=== PATIENT | female | born 1935 | race Caucasian/White ===

== ENCOUNTER → 2017-08-28 | Outpatient (CLI) | payer MEDICARE ==
[~2017-08-28] MED LIST: METO1TAB32 PO; PROL60SO
--- NOTE | 2017-08-28 14:22 | REP ---
Chest x-ray: Two views. History: Shortness of breath. Comparison chest x-ray July 31, 2017. Findings: Today's view is exposed at a lesser level of inspiration than the prior study. The lungs are symmetrically aerated. Pleural angles are sharp. There is some linear fibrotic markings in the left base which are felt to be unchanged. No new infiltrate is seen. The heart is not felt to be enlarged. Aorta is tortuous as before. There are degenerative changes in the thoracic spine. Impression: Lesser level of inspiration. Otherwise no acute disease. Signed by Romero Bishop MD 08/28/2017 03:33 P
== END ==
LOC: M RAD 13:14
PROVIDERS: ATTEND Internal Medicine Cardiovascular Disease
DX: R06.02 Shortness of breath (principal)

== ENCOUNTER 2017-08-29 18:33 | Emergency (ER) | payer OTHER, MEDICARE ==
[~2017-08-29] VITALS: Ht 157.5 cm; Wt 70.5 kg
[2017-08-29] MEDS ORDERED: PROL60SO (18:51)
[2017-08-29] MEDS ORDERED: METO1TAB32 PO (18:51)
[2017-08-29] MEDS ORDERED: ADACEL/BOOSTRIX VACCINE (DIPHTH/PERTUSS/ACELL/TETANUS)0.5ML SYR (90715) IM ONE (22:30)
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
[2017-08-29 23:13] VITALS: BP 146/72
== END 2017-08-29 23:14 | disposition home or self-care (01) ==
LOC: M ED 18:33
DX: Z04.1 Encounter for examination and observation following transport accident (principal); S01.01XA Laceration without foreign body of scalp, initial encounter; V49.50XA Passenger injured in collision with unspecified motor vehicles in traffic accident, initial encounter; Y92.89 Other specified places as the place of occurrence of the external cause; Y93.89 Activity, other specified; Y99.8 Other external cause status; K80.70 Calculus of gallbladder and bile duct without cholecystitis without obstruction; D35.00 Benign neoplasm of unspecified adrenal gland; M47.812 Spondylosis without myelopathy or radiculopathy, cervical region; M50.90 Cervical disc disorder, unspecified, unspecified cervical region; I10 Essential (primary) hypertension

== ENCOUNTER → 2017-09-19 | Outpatient (REF) | payer MEDICARE | LOC: M LAB REF 16:58 | PROVIDERS: ATTEND Nurse Practitioner Adult Health | DX: R53.83 Other fatigue (principal); R53.1 Weakness ==

== ENCOUNTER 2019-02-11 09:30 | Emergency (ER) | payer MEDICARE ==
[~2019-02-11] VITALS: Ht 160 cm; Wt 68.6 kg
[2019-02-11] MEDS ORDERED: SERT-155 (09:40)
[2019-02-11] MEDS ORDERED: ACETAMINOPHEN TAB 650MG DOSE (2X325MG) PO ONE (10:30)
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
[2019-02-11 11:05] VITALS: BP 110/69
== END 2019-02-11 11:09 | disposition home or self-care (01) ==
LOC: M ED 09:30
DX: S20.211A Contusion of right front wall of thorax, initial encounter (principal); W00.0XXA Fall on same level due to ice and snow, initial encounter

== ENCOUNTER → 2019-10-29 | Outpatient (REF) | payer MEDICARE ==
[~2019-10-29] MED LIST changes: +SERT50TA29
[2019-10-29 16:03] LABS: TOTAL PROTEIN 7.7 GM/DL (6.4-8.2)
[2019-10-29 16:11] LABS: FOLATE > 24.0 NG/ML; VITAMIN B12 LEVEL 484 PG/ML
[2019-10-30 12:21] LABS: ALBUMIN 4.69 GM/DL (3.29-5.55); ALBUMIN % 60.9 % (55.8-66.1); ALPHA-1-GLOBULIN % 4.4 % (2.9-4.9); ALPHA-1-GLOBULINS 0.34 GM/DL (0.17-0.41); ALPHA-2-GLOBULINS 0.75 GM/DL (0.42-0.99); ALPHA-2-GLOBULINS % 9.8 % (7.1-11.8); BETA-1-GLOBULINS 0.41 GM/DL (0.28-0.60); BETA-1-GLOBULINS % 5.3 % (4.7-7.2); BETA-2-GLOBULINS 0.38 GM/DL (0.19-0.55); BETA-2-GLOBULINS % 4.9 % (3.2-6.5); GAMMA GLOBULIN % 14.7 % (11.1-18.8); GAMMA GLOBULINS 1.13 GM/DL (0.65-1.58)
== END ==
LOC: M LABNEURO 13:15
PROVIDERS: ATTEND Psychiatry & Neurology Neurology
DX: R26.89 Other abnormalities of gait and mobility (principal); E51.9 Thiamine deficiency, unspecified; E83.01 Wilson's disease

== ENCOUNTER 2019-12-18 09:24 | Day surgery (SDC) | payer MEDICARE ==
[~2019-12-18] VITALS: Ht 160 cm; Wt 67.6 kg
[~2019-12-18 09:24] MED LIST changes: +CALC600T60 PO; +CARB25TA PO; +CEFUROXIME 1MG/0.1ML INTRACAMERAL INJ As Ordered ONE; +DUOVISC (0.50ML VISCOAT/0.55ML PROVISC) OPHTH KIT As Ordered ONE; +FLAX1CAP5 PO; +LIDOCAINE 1% SDV 5 ML VIAL As Ordered ONE; +LR 1,000 ML IV ONE; +MULTCAP PO; +OFLOXACIN 0.3 % (OCUFLOX) OPTH SOL 5ML OS ONE; +POVIDONE-IODINE 5% OPHTH PREP SOL 30ML As Ordered ONE; +PROPARACAINE 0.5% OPHTH SOL 15ML OS ONE
[2019-12-18] MEDS ORDERED: BALANCED SALT IRRIGATION SOLUTION 500ML BAG (FOR OR EYE MACHINE) As Ordered ONE (10:36)
[2019-12-18] MEDS ORDERED: MIDAZOLAM INJ 2 MG/2 ML VIAL (J2250) As Ordered ONE (11:46)
[2019-12-18] MEDS ORDERED: fentaNYL 100 MCG/2 ML INJECTION (J3010) As Ordered ONE (11:46)
[2019-12-18 13:25] VITALS: BP 133/83
--- NOTE | 2019-12-19 16:51 | RO ---
DATE OF PROCEDURE: 12/18/2019 PREPROCEDURE DIAGNOSIS: Primary open-angle glaucoma, moderate stage of the left eye. POSTPROCEDURE DIAGNOSIS: Primary open-angle glaucoma, moderate stage of the left eye. PROCEDURE: Transluminal canal dilation with ab-interno trabeculotomy of the left eye with the use of OMNI device (180 degrees viscodilation on goniotomy counterclockwise). SURGEON: Dr. Harsh Johnson PATIENT SERVICE REP: ANESTHESIA: Local with monitored anesthesia care (MAC). DESCRIPTION OF PROCEDURE: The patient was seen in the preoperative area, the consent was reviewed, and the surgical eye was marked. The patient was then transferred to the operating room. The eye was then prepped and draped in a sterile fashion. Tegaderm was used to isolate the upper and lower eyelids and a wire lid speculum was placed. The patient's head was rotated 45 degrees away, microscope was rotated to approximately 45 degrees. A 2.4 mm temporal clear corneal incision was made. Intraocular preservative-free 1% lidocaine was injected and then cohesive viscoelastic was placed. Using a gonio prism, the trabecular meshwork was visualized, The OMNI device was placed within the anterior chamber. The OMNI device catheter was fed into the canal counterclockwise for 180 degrees. There was mild bleeding at the insertion site. The catheter was then removed. The catheter was then reinserted and then a gentle goniotomy was performed for approximately 180 degrees. Catheter was then withdrawn. The patient's head was rotated, the catheter was withdrawn, as well as the OMNI device. The patient's head was rotated back to 45 degrees, as well as the microscope to 0 degrees. Irrigation/aspiration was used to remove all viscoelastic and blood from the anterior chamber. BSS was used to hydrate the temporal clear corneal incision. The intraocular pressure was titrated using BSS. Weck oivedo were used to check the incision for any leaks, none were found. There was no hyphema at the end of the procedure. The patient tolerated the procedure well. The speculum and drapes were removed, and the patient was discharged to the post-anesthesia care unit (PACU) in a stable condition.
== END 2019-12-18 13:30 | disposition home or self-care (01) ==
LOC: M SDC 09:24
PROVIDERS: ATTEND Ophthalmology
DX: H40.1122 Primary open-angle glaucoma, left eye, moderate stage (principal); I10 Essential (primary) hypertension; D64.9 Anemia, unspecified; K59.00 Constipation, unspecified; M19.90 Unspecified osteoarthritis, unspecified site; M81.0 Age-related osteoporosis without current pathological fracture; F03.90 Unspecified dementia, unspecified severity, without behavioral disturbance, psychotic disturbance, mood disturbance, and anxiety; G20 Parkinson's disease; F32.9 Major depressive disorder, single episode, unspecified; R32 Unspecified urinary incontinence; Z96.1 Presence of intraocular lens; Z88.5 Allergy status to narcotic agent; Z79.899 Other long term (current) drug therapy
CPT/HCPCS: 65820; 66174; J2250; J3010

== ENCOUNTER 2020-01-09 12:26 | Inpatient (IN) | payer MEDICARE ==
[~2020-01-09] VITALS: Ht 160 cm; Wt 64.0 kg
[~2020-01-09 12:26] MED LIST changes: -CEFUROXIME 1MG/0.1ML INTRACAMERAL INJ As Ordered ONE; -DUOVISC (0.50ML VISCOAT/0.55ML PROVISC) OPHTH KIT As Ordered ONE; -LIDOCAINE 1% SDV 5 ML VIAL As Ordered ONE; -LR 1,000 ML IV ONE; -OFLOXACIN 0.3 % (OCUFLOX) OPTH SOL 5ML OS ONE; -POVIDONE-IODINE 5% OPHTH PREP SOL 30ML As Ordered ONE; -PROPARACAINE 0.5% OPHTH SOL 15ML OS ONE; -SERT50TA29; +SERT50TA29 PO
[2020-01-09] MEDS ORDERED: POTA20TA6 PO (12:46)
[2020-01-09] MEDS ORDERED: FUROSEMIDE 40 MG/4 ML VIAL (J1940) IV ONE (13:15)
--- NOTE | 2020-01-09 13:23 | REP ---
Portable chest x-ray: Single view. History: Dyspnea and cough. Comparison study: February 11, 2019. Also reviewed is a chest x-ray from August 28, 2017. Findings: There is left base linear fibrosis unchanged. No infiltrate is seen. Pleural angles are sharp. Cardiomegaly is observed unchanged. The thoracic aorta somewhat tortuous. Impression: Linear fibrosis left base. Mild cardiomegaly. Otherwise no acute disease. Electronically Signed by Romero Bishop MD 01/09/2020 01:15 P
[2020-01-09] MEDS ORDERED: IPRATROPIUM 0.5MG/ALBUTEROL 2.5MG INH SOL UD 3ML (DUONEB)(J7620) NEB ONE (13:30)
[2020-01-09 13:37] LABS: BASO % 0.1 % (0.0-1.0); EOS % 0.1 % (0.0-3.0); HEMATOCRIT 23.9 % (36.0-47.0); HEMOGLOBIN 7.4 g/dl (12.0-15.5); LYMPH # 1.2 10^3/uL (1.5-5.0); LYMPH % 11.3 % (24.0-44.0); MEAN CORPUSCULAR HEMOGLOBIN 20.1 pg (27.0-33.0); MEAN CORPUSCULAR VOLUME 64.8 fl (80.0-96.0); MONO # 0.8 10^3/uL (0.0-0.8); MONO % 7.5 % (0.0-5.0); NEUTROPHILS # 8.1 10^3/uL (1.5-8.5); NEUTROPHILS % 79.2 % (36.0-66.0); PLATELET COUNT, AUTOMATED 369 10^3/uL (150-450); RED BLOOD COUNT 3.69 10^6/uL (4.00-5.40); WHITE BLOOD COUNT 10.2 10^3/uL (4.0-10.0)
[2020-01-09 13:43] LABS: BLOOD UREA NITROGEN 25 MG/DL (7-18); CALCIUM LEVEL 8.3 MG/DL (8.8-10.2); CARBON DIOXIDE LEVEL 26 MEQ/L (21-32); CHLORIDE LEVEL 101 MEQ/L (98-107); CK-MB VALUE MASS 1.3 NG/ML (<3.6); CPK CREATINE PHOSPHOKINASE 63 U/L (26-192); CREATININE FOR GFR 0.67 MG/DL (0.55-1.30); GLOMERULAR FILTRATION RATE > 60.0 (>32); GLUCOSE, FASTING 126 MG/DL (70-100); MAGNESIUM LEVEL 2.1 MG/DL (1.8-2.4); MB/CK RELATIVE INDEX 2.06 (< OR =4); NT-PRO BNP 964 PG/ML (<450); POTASSIUM SERUM 4.7 MEQ/L (3.5-5.1); SODIUM LEVEL 134 MEQ/L (136-145); TROPONIN I 0.02 NG/ML (< 0.10)
[2020-01-09 14:00] LABS: ABG BASE EXCESS 0.5 (-2.0-2.0); ABG O2 SATURATION 97.3 % (95.0-99.0); ABG PARTIAL PRESSURE CO2 33.7 mmHg (35.0-45.0); ABG PARTIAL PRESSURE O2 105.7 mmHg (75.0-100.0); ABG TOTAL CO2 25.1 MEQ/L (23.0-31.0); ABG pH (ARTERIAL) 7.471 UNITS (7.350-7.450)
[2020-01-09] MEDS ORDERED: PANTOPRAZOLE 40MG INJ (PROTONIX) (C9113) IV ONE (14:30)
[2020-01-09] MEDS ORDERED: CARB25TA9 PO (14:34)
[2020-01-09] MEDS ORDERED: PROL60SO SC (14:34)
[2020-01-09] MEDS ORDERED: XALA0.007 OU (14:34)
[2020-01-09 16:05] LABS: FERRITIN 350 NG/ML (8-252); IRON (FE) 32 UG/DL (50-170); PERCENT SATURATION 20.9 % (13.2-45.0); TOTAL IRON BINDING CAPACITY 153 UG/DL (250-450)
[2020-01-09 16:12] LABS: VITAMIN B12 LEVEL 983 PG/ML (247-911)
[2020-01-09 16:13] LABS: FOLATE > 24.0 NG/ML (>5.4)
--- NOTE | 2020-01-09 17:10 | HPEPDOC ---
General Date of Admission Jan 09, 2020 at 15:33 Date of Service: Jan 09, 2020 Chief Complaint The patient is a 84-year-old female admitted with a reason for visit of Symptomatic Anemia. History of Present Illness CHIEF COMPLAINT: Shortness of Breath HISTORY OF PRESENT ILLNESS: This is a 84 year old female who presented to the ED for shortness of breath, dizziness and loose dark stools for the past 3 days. The shortness of breath has been present on and off for longer, patient was unable to give a time frame. She does endorses it worsens when she lies flat or climbs the stairs, she is able to ambulate around her house without shortness of breath. She also states her legs have felt heavy and weak for a few months. Denied headaches, chest pain, pain with taking a deep breath, nausea, vomiting and blood in her stools. Her last blood work was one month ago and her Hemoglobin was 9.6, Hemocrit was 28.5 and MCV was 61.2. In the ER, the patient had conversational dyspnea but denied any abdominal pain. Her initial blood work shows a Hemoglobin of 7.4, Hemocrit of 23.9 and MCV was 64.8 and a positive hemocult. Patient showed signs of fluid overload. She will be admitted to the PCU for symptomatic anemia, receive 2 units of blood with anemia work up and consult with general surgery for a potential scope to look for a GI bleed. PAST MEDICAL HISTORY: 1. Chronic Anemia 2. Hypertension 3. Dementia 4. Depression HOME MEDICATIONS: Please see below. ALLERGIES: Please see below PAST SURGICAL HISTORY: 1. Bilateral Cataracts 2. Tubal Ligation SOCIAL HISTORY: Lives alone in an apartment, Tobacco use: None. ETOH: None, Illicit drug use: None, CODE STATUS: Full Code. FAMILY HISTORY: Reviewed and noncontributory. REVIEW OF SYSTEMS: Constitutional: Denies: Chills, Fever Eyes: Denies: Vision Changes ENT: Denies: Head Aches Pulmonary: Reports: Dyspnea Cardiovascular: Denies: Palpitations, Chest pain Gastrointestinal: Denies: Nausea, Vomiting Genitourinary: Denies: Dysuria Musculoskeletal: Denies: Arm Pain, Leg Pain Neurological: Reports: Weakness in LE bilaterally Denies: numbness, tingling Psych: Reports: Mood Normal PHYSICAL EXAMINATION: VITAL SIGNS: Please See Below GENERAL: Pleasant 84 year old female with bilateral hearing aids who is still hard of hearing, sitting up in bed awake alert oriented with conversational d yspnea and only speaking in short sentences. HEENT: Atraumatic, normocephalic, moist mucous membrane, mild elevated JVD CARDIOVASCULAR: Normal S1 S2 regular rate and rhythm with no murmurs, gallops or rubs. RESPIRATORY: Clear to auscultation bilaterally except for mild bilateral bibasilar crackles with mild accessory muscle use. ABDOMINAL: Bowel sounds present in all 4 quadrants, abdomen soft and nontender. EXTREMITIES: 2+ pitting edema in lower extremities bilaterally NEUROLOGICAL: AOx3, no gross focal deficits; Muscle strength 5/5 bilaterally in upper and lower extremities, sensation intact bilaterally in upper and lower extremities PSYCHOLOGICAL: Appropriate. LABORATORY DATA: Please see below. MICROBIOLOGY: Please see below. IMAGING: Chest XRay impression: Linear fibrosis left base. Mild cardiomegaly. Otherwise no acute disease. ASSESSMENT & PLAN: This is a 84 year old female with shortness of breath, dizziness and history of dark loose stools. Patient will be admitted for blood transfusion, anemia workup and GI bleed work up. PROBLEMS: 1. Dyspnea likely 2/2 Acute Symptomatic Anemia + hyper-volumic state -s/p Lasix x1 and 2 units scheduled, trend H/H -H/H one month ago had a Hgb of 9.6, initial H/H today shows Hgb of 7.4; -Monitor H/H Q4H after repeat H/H is performed post-transfusion. -anemia workup, levels for: iron, ferritin, total binding iron, reticulocyte count, vitamin B12, folate, haptoglobin, TSH, -Protonix 40 mg IV BID for potential GI bleed prophylaxis. -General Surgery was consulted for a potential scope for GI bleed due to hx of dark loose stools. Keep NPO for possible scope to which patient is agreeable, fluids withheld due to hypervolumia. We appreciated their input. 2. Possible new onset CHF -hypervolumic on exam, elevated BNP, cardiomegaly on chest xray, orthopnea and PND -echocardiogram ordered -cardiac markers pending; initial set negative -strict Is & Os with daily weights -borderline soft BP on admission, will hold diuretics at this time and will monitor with transfusion. 3. Hypertension -Hold home medication of Metoprolol due to soft blood pressures on admission and she is NPO 4. Depression -Hold home medication of Sertraline-is NPO 5. Dementia -hold home medication of Carbidopa-Levodopa- is NPO DVT PROPHYLAXIS: TEDS and sequentials DISPOSITION: Pending stabilization of H/H. Home Medications Scheduled Carbidopa/Levodopa (Carbidopa-Levodopa 25-100 Tab) 1 Each Tablet, 1 TAB PO QID, (Reported) 0800/1200/1600/2000 Denosumab Injection (Prolia) 60 Mg/1 Ml Syringe, 60 MG SC ASDIRECTED, (Reported) EVERY 6 MONTHS, LAST RECEIVED IN FALL PER PT Latanoprost (Xalatan) 0.005% 2.5ML Drops, 1 DROP OU QHS, (Reported) Metoprolol Succinate (Metoprolol Succinate) 25 Mg Tab, 12.5 MG PO DAILY, (Repo rted) Potassium Chloride (Potassium Chloride) 20 Meq Tab.er.prt, 20 MEQ PO BID, (Reported) Sertraline HCl (Sertraline HCl) 50 Mg Tab, 50 MG PO DAILY, (Reported) Allergies Coded Allergies: codeine (Verified Adverse Reaction, Intermediate, N/V, 11/21/19) A-FIB/CHADSVASC A-FIB History Current/History of A-Fib/PAF?: No Current PO Anticoag Therapy: No Vital Signs Vital Signs Date Time Temp Pulse Resp B/P (MAP) Pulse Ox O2 Delivery O2 Flow Rate FiO2 01/09/20 16:30 91 22 102/64 (77) 97 Room Air 01/09/20 12:43 97.7 Laboratory Data Labs 24H Laboratory Tests 2 01/09/20 13:08: Immature Granulocyte % (Auto) 1.8, Neutrophils (%) (Auto) 79.2H, Lymphocytes (%) (Auto) 11.3L, Monocytes (%) (Auto) 7.5H, Eosinophils (%) (Auto) 0.1, Basophils (%) (Auto) 0.1, Neutrophils # (Auto) 8.1, Lymphocytes # (Auto) 1.2L, Monocytes # (Auto) 0.8, Eosinophils # (Auto) 0.0, Basophils # (Auto) 0.0, Reticulocyte # (auto) 205.0H, Nucleated Red Blood Cells % (auto) 0.5H, Percent Reticulocyte Count 5.5H, Reticulocyte Hemoglobin Equivalent 21.0L, Anion Gap 7L, Glomerular Filtration Rate > 60.0, Calcium Level 8.3L, Magnesium Level 2.1, Iron Level 32L, Total Iron Binding Capacity 153L, Transferrin % Saturation 20.9, Ferritin 350H, Total Creatine Kinase 63, Creatine Kinase MB 1.3, Creatine Kinase MB Relative Index 2.06, Troponin I 0.02, WL-Hbg-A-Type Natriuretic Peptide 964H, Vitamin B12 Level 983H, Folate > 24.0 01/09/20 13:44: Blood Gas Bicarbonate Standard 25.0, Arterial Blood pH 7.471H, Arterial Blood Pa rtial Pressure CO2 33.7L, Arterial Blood Partial Pressure O2 105.7H, Arterial Blood Total CO2 25.1, Arterial Blood HCO3 24.0, Arterial Blood Base Excess 0.5, Arterial Blood Oxygen Saturation 97.3 CBC/BMP Laboratory Tests 01/09/20 13:08 Plan / VTE VTE Prophylaxis Ordered?: No GME ATTESTATION GME ATTESTATION My faculty preceptor for this patient encounter was physically present during the encounter and was fully available. All aspects of the patient interview, examination, medical decision making process, and medical care plan development were reviewed and approved by the faculty preceptor. The faculty preceptor is aware and concurs with the plan as stated in the body of this note and will attest to such by his/her cosignature. ATTENDING NOTE I, Peter Bradford, have independently examined this patient and performed my own physical exam, as well as reviewed the documentation and edited where necessary. I have discussed in detail with the resident / student the findings and plan of treatment as documented by the resident / student and edited their note. I agree with their findings and treatment plan and have edited their documentation. I will continue to follow the patient during this hospital stay. RAFFAELE JOHNSON OMS-3 Jan 09, 2020 17:10 PETER BRADFORD MD Jan 10, 2020 12:01
[2020-01-09 17:30] VITALS: BP 112/72
[2020-01-09] MEDS ORDERED: SLF 3 ML SYR IV PRN (17:30)
[2020-01-09 18:00] LABS: INR 1.2; PROTHROMBIN TIME 14.9 SECONDS (11.8-14.0)
--- NOTE | 2020-01-09 18:04 | ECGEPIP ---
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
[2020-01-09 18:30] VITALS: BP 118/81
[2020-01-09 19:53] LABS: CK-MB VALUE MASS 1.8 NG/ML (<3.6); MB/CK RELATIVE INDEX 3.67 (< OR =4); TROPONIN I 0.13 NG/ML (< 0.10)
[2020-01-09 20:00] VITALS: BP 118/79
[2020-01-09] MEDS: SLF 3 ML SYR IV SCH (20:29)
[2020-01-09] MEDS: PANTOPRAZOLE 40MG INJ (PROTONIX) (C9113) IV SCH (20:29)
[2020-01-09 22:27] VITALS: BP 112/73
[2020-01-09 22:48] VITALS: BP 111/72
[2020-01-09 23:33] VITALS: BP 127/69
[2020-01-10] VITALS (17 sets, daily range): BP systolic 101–149; BP diastolic 68–90; PULSE 86
[2020-01-10 04:57] LABS: HEMATOCRIT 26.8 % (36.0-47.0); HEMOGLOBIN 8.7 g/dl (12.0-15.5); MEAN CORPUSCULAR HGB CONC 32.5 g/dl (32.0-36.5); MEAN CORPUSCULAR VOLUME 67.7 fl (80.0-96.0); PLATELET COUNT, AUTOMATED 279 10^3/uL (150-450); RED BLOOD COUNT 3.96 10^6/uL (4.00-5.40); WHITE BLOOD COUNT 7.8 10^3/uL (4.0-10.0)
[2020-01-10] MEDS: SLF 3 ML SYR IV SCH ×3 (05:03→22:07)
[2020-01-10 05:24] LABS: BLOOD UREA NITROGEN 25 MG/DL (7-18); CALCIUM LEVEL 7.6 MG/DL (8.8-10.2); CARBON DIOXIDE LEVEL 25 MEQ/L (21-32); CHLORIDE LEVEL 103 MEQ/L (98-107); CK-MB VALUE MASS 1.4 NG/ML (<3.6); CPK CREATINE PHOSPHOKINASE 30 U/L (26-192); CREATININE FOR GFR 0.55 MG/DL (0.55-1.30); GLOMERULAR FILTRATION RATE > 60.0 (>32); GLUCOSE, FASTING 78 MG/DL (70-100); MB/CK RELATIVE INDEX 4.67 (< OR =4); SODIUM LEVEL 137 MEQ/L (136-145); TROPONIN I 0.14 NG/ML (< 0.10)
[2020-01-10] MEDS ORDERED: propofoL 500 MG/50 ML VIAL As Ordered ONE (07:33)
[2020-01-10] MEDS ORDERED: LIDOCAINE 2% INJ 100 MG/5 ML SDV (FOR ANES.) As Ordered ONE (07:33)
[2020-01-10] MEDS: PANTOPRAZOLE 40MG INJ (PROTONIX) (C9113) IV SCH ×2 (08:06→22:07)
--- NOTE | 2020-01-10 09:34 | ECGEPIP ---
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
[2020-01-10] MEDS: SERTRALINE HCL 50 MG TAB PO SCH (10:31)
[2020-01-10] MEDS: POTASSIUM CHLORIDE 10 MEQ SR TABLET PO SCH ×2 (10:31→20:58)
[2020-01-10] MEDS: METOPROLOL SUCC *XL* 12.5MG PER 1/2 TAB (TopROL *XL*) PO SCH (10:36)
[2020-01-10] MEDS ORDERED: FUROSEMIDE 40 MG/4 ML VIAL (J1940) IV ONE (11:00)
[2020-01-10] MEDS: SINEMET 25-100 MG TAB PO SCH ×3 (12:33→20:57)
[2020-01-10 12:45] LABS: HEMOGLOBIN 10.2 g/dl (12.0-15.5); MEAN CORPUSCULAR HEMOGLOBIN 22.3 pg (27.0-33.0); MEAN CORPUSCULAR HGB CONC 31.9 g/dl (32.0-36.5); PLATELET COUNT, AUTOMATED 283 10^3/uL (150-450); RED BLOOD COUNT 4.57 10^6/uL (4.00-5.40); WHITE BLOOD COUNT 9.2 10^3/uL (4.0-10.0)
--- NOTE | 2020-01-10 12:53 | IPNPDOC ---
Text Note Date of Service The patient was seen on 01/10/20. NOTE S: Pt examined at bedside. Feels slightly better from admission. Less short of breath. No bowel movements since admission. Tolerated 2 units PRBC well, with suboptimal improvement in H&H. Noted to have rising troponins overnight EKG this morning showing some new T-wave inversions. She denies chest pain, tightness, nausea, vomiting, abdominal pain. Hemodynamically stable. PE: Vitals: see below General: NAD, A&Ox3, resting comfortably, answers in short answers HEENT: NCAT, EOMI, anicteric sclera, MMM, mild conjunctival pallor CV: RRR, no murmurs or clicks or rub. 2+ LE edema b/l, mildly elevated JVP RESP: equal chest rise, minimal accessory muscle use, no resp distress, on room air minimal bibasilar crackles, remaining lung avitia clear ABD: soft, NT, ND. Hypoactive bowel sounds, no masses. No rebound, guarding, rigidity EXTREMITIES: 2+ radial & dp pulses b/l, able to move all extremities NEURO: no focal deficits or acute changes A/P: This 84-year-old female presented for shortness of breath, melenotic diarrhea, orthopnea, PND for the past few days. On admission, was found to have a drop in hemoglobin from 9.6 to 7.4 over one month, positive heme-occult in ER, and signs of fluid overload, elevated BNP, and cardiomegaly on CXR. Concern for GI bleed and possible new onset CHF. 1. Dyspnea - likely multifactorial: symptomatic acute on chronic anemia [acute blood loss anemia] from possible upper GI bleed, & fluid overload from possible new acute decompensated CHF - s/p 2U PRBC with Hgb up from 7.4 to 8.7 with improvement in symptoms. - given suboptimal increase, transfuse 2 more PRBC = total 4 units. Monitor vol status, Lasix in-between - trend H&H q6h. Transfuse as needed to maintain >7 or resolution of symptoms 2. Melena, possible upper GI bleed - no BM since admission - Dr. Felipe consulted for possible EGD/colon. Clear liquids for now - no hx of GI bleed. Continue IV Protonix - anemia w/u confirms baseline chronic anemia with low iron - see #1 3. Fluid overload, possible new onset acute decompensated CHF - see #1 - comfortably breathing room air, soft bp - consider diuresing when improved - 2L fluid restrict, strict I/O, daily weight - on tele, echo pending 4. NSTEMI Type 2 - likely demand ischemia 2/2 anemia and possible new CHF - repeat EKG this am shows T wave inversions in V1-V3, new from admission - hemodynamically stable, no cardiac complaints - repeat pending 5. Depression -stable. Continue Sertraline 6. HTN - Home Metoprolol w/ hold parameters 7. Parkinson's Dementia - Continue home Sinemet DVT ppx: mechanical. Avoid AC given GI bleed concern CODE STATUS: FULL CODE - discussed and confirmed with pt and son in detail on admission DISPO: pending clinical improvement & possible EGD/colonoscopy. VS,Fishbone, I+O VS, Fishbone, I+O Laboratory Tests 01/09/20 13:08 01/10/20 04:29 Vital Signs Date Time Temp Pulse Resp B/P (MAP) Pulse Ox O2 Delivery O2 Flow Rate FiO2 01/10/20 10:40 97.6 90 18 106/79 95 Room Air I&O- Last 24 Hours up to 6 AM 01/10/20 06:00 Intake Total 849 ml Output Total 700 ml Balance 149 ml GME ATTESTATION GME ATTESTATION My faculty preceptor for this patient encounter was physically present during the encounter and was fully available. All aspects of the patient interview, examination, medical decision making process, and medical care plan development were reviewed and approved by the faculty preceptor. The faculty preceptor is aware and concurs with the plan as stated in the body of this note and will attest to such by his/her cosignature. ATTENDING NOTE I, Peter Mendoza, have independently examined this patient and performed my own physical exam, as well as reviewed the documentation and edited where necessary. I have discussed in detail with the resident / student the findings and plan of treatment as documented by the resident / student and edited their note. I agree with their findings and treatment plan and have edited their documentation. I will continue to follow the patient during this hospital stay. REINALDO MCKEON DO Jan 10, 2020 11:46 PETER MENDOZA MD Jan 10, 2020 13:01
[2020-01-10 13:19] LABS: CK-MB VALUE MASS 1.8 NG/ML (<3.6); TROPONIN I 0.12 NG/ML (< 0.10)
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
[2020-01-10] MEDS: LATANOPROST 0.005% OPHTH SOLN 2.5 ML OU SCH (20:58)
[2020-01-10] MEDS: ACETAMINOPHEN TAB 650MG DOSE (2X325MG) PO PRN (20:58)
[2020-01-11] VITALS: BP 113/74
[2020-01-11 04:00] VITALS: BP 126/74
[2020-01-11] MEDS: SLF 3 ML SYR IV SCH ×3 (06:00→20:41)
[2020-01-11 06:31] LABS: HEMATOCRIT 35.5 % (36.0-47.0); HEMOGLOBIN 11.7 g/dl (12.0-15.5); MEAN CORPUSCULAR HEMOGLOBIN 23.4 pg (27.0-33.0); PLATELET COUNT, AUTOMATED 249 10^3/uL (150-450); WHITE BLOOD COUNT 8.8 10^3/uL (4.0-10.0)
[2020-01-11 06:52] LABS: BLOOD UREA NITROGEN 27 MG/DL (7-18); CARBON DIOXIDE LEVEL 27 MEQ/L (21-32); CHLORIDE LEVEL 104 MEQ/L (98-107); CREATININE FOR GFR 0.59 MG/DL (0.55-1.30); GLOMERULAR FILTRATION RATE > 60.0 (>32); GLUCOSE, FASTING 81 MG/DL (70-100); POTASSIUM SERUM 3.9 MEQ/L (3.5-5.1); SODIUM LEVEL 137 MEQ/L (136-145)
[2020-01-11 08:00] VITALS: BP 115/84
[2020-01-11] MEDS: POTASSIUM CHLORIDE 10 MEQ SR TABLET PO SCH ×2 (08:58→20:40)
[2020-01-11] MEDS: METOPROLOL SUCC *XL* 12.5MG PER 1/2 TAB (TopROL *XL*) PO SCH (08:58)
[2020-01-11] MEDS: SINEMET 25-100 MG TAB PO SCH ×4 (08:58→20:40)
[2020-01-11] MEDS: PANTOPRAZOLE 40MG INJ (PROTONIX) (C9113) IV SCH (08:58)
[2020-01-11] MEDS: SERTRALINE HCL 50 MG TAB PO SCH (08:58)
[2020-01-11 09:31] LABS: CK-MB VALUE MASS 1.1 NG/ML (<3.6); CPK CREATINE PHOSPHOKINASE 33 U/L (26-192); MB/CK RELATIVE INDEX 3.33 (< OR =4)
--- NOTE | 2020-01-11 09:45 | REP ---
Clinical: Fall. Technique: AP, lateral, bilateral oblique and sunrise views of the left knee. Findings: Advanced tricompartmental osteoarthritic degenerative changes are appreciated. No acute fracture dislocation. No obvious effusion. Impression: Advanced arthritic changes. No acute fracture or dislocation. Electronically Signed by León Brooks MD 01/11/2020 09:36 A
[2020-01-11] MEDS ORDERED: FUROSEMIDE 20 MG/2 ML VIAL (J1940) IV ONE (10:00)
--- NOTE | 2020-01-11 11:25 | IPNPDOC ---
Text Note Date of Service The patient was seen on 01/11/20. NOTE Subjective: Patient is an 84-year-old female with a PMHx HTN, Chronic anemia, Dementia and Depression who presented to the emergency room with complaints of shortness of breath associated with melanotic diarrhea. On admission, she was found to have a drop in hemoglobin from 9.6 to 7.4 over one month, positive heme-occult in ER, and signs of fluid overload, elevated BNP, and cardiomegaly on CXR. Concern for GI bleed and possible new onset CHF. Patient was seen and examined at the bedside. Patient reports she is experiencing some shortness of breath with exertion. She denies any chest pain, palpitations or cough. Reported that this morning she did express some lightheadedness when she went to go walk, prior to her fall. Denies any significant abdominal pain. Has not experienced any further bowel movements. Denies any urinary discomfort. Objective: Vitals (See below) General: Lying in bed, no acute distress, comfortable, Awake / Alert HEENT: NC, AT CVS: +S1S2 Lungs: Fair air entry b/l, no appreciable wheezing / rhonchi / rales Abdomen: Soft, ND, NT Extremities: 1+/trace pitting edema, - Calf tenderness Assessment and plan: Dyspnea - likely multifactorial; 2/2 symptomatic acute on chronic anemia [acute blood loss anemia] from possible upper GI bleed; fluid overload from possible acute decompensated CHF, suspected new? - Clinically has reported improvement in breathing; however does not appear to be at baseline - s/p 4 units PRBC - Hg has improved; will continue to trend to monitor stability Melena - possible 2/2 upper GI bleed - see #1 - Reported 1 BM on 15 AM; brown without any evidence of blood - Hg remains stable; will continue to trend - c/w Protonix; will likely transition to PO this afternoon / Add Carafate - Outpatient follow up with GI/Surger for EGD / Colonoscopy - General surgery on consultation; appreciate their input Fluid overload - likely 2/2 acute decompensated CHF, suspected new? - see #1 - c/w Strict I/Os, Daily Weights, Fluid restriction - ECHO complete; report pending - Will consider additional dose of diuretics today Elevated troponin - likely 2/2 NSTEMI (Type 2) / Demand ischemia - 2/2 anemia - Currently has no complaints of chest pain - EKG noted - Troponins have improved - Will have outpatient follow up with Cardiology Depression - c/w Sertraline HTN - BP remains well controlled - c/w Metoprolol with holing parameters Parkinson's / Dementia - Continue home Sinemet GI prophylaxis - c/w Protonix - Will add Carafate DVT prophylaxis - c/w TEDs/ Sequentials Code Status: - Full code Disposition: - Likely will start PT / OT today - Anticipate discharge within 24 hours VS,[place]ley[place], I+O VS, Fishbone, I+O Laboratory Tests 01/10/20 12:34 01/11/20 06:03 Vital Signs Date Time Temp Pulse Resp B/P (MAP) Pulse Ox O2 Delivery O2 Flow Rate FiO2 01/11/20 08:58 76 133/83 01/11/20 08:00 96.6 18 94 Room Air I&O- Last 24 Hours up to 6 AM 01/11/20 06:00 Intake Total 1818 ml Output Total 650 ml Balance 1168 ml ALEXUS BRADFORD MD Jan 11, 2020 11:25
[2020-01-11 12:00] VITALS: BP 124/83
[2020-01-11 12:29] LABS: HEMATOCRIT 38.7 % (36.0-47.0); HEMOGLOBIN 12.4 g/dl (12.0-15.5)
[2020-01-11] MEDS: SUCRALFATE 1 GM TAB PO SCH ×3 (12:54→20:40)
[2020-01-11 16:00] VITALS: BP 116/78
[2020-01-11 17:53] LABS: HEMATOCRIT 38.3 % (36.0-47.0); HEMOGLOBIN 12.4 g/dl (12.0-15.5)
[2020-01-11 20:00] VITALS: BP 127/84
[2020-01-11] MEDS: PANTOPRAZOLE 40MG TAB (PROTONIX) PO SCH (20:40)
[2020-01-11] MEDS: LATANOPROST 0.005% OPHTH SOLN 2.5 ML OU SCH (20:40)
[2020-01-11] MEDS ORDERED: ONDANSETRON 4MG/2ML VIAL (J2405) IV PRN (21:15)
[2020-01-12] VITALS: BP 118/77
[2020-01-12 00:25] LABS: HEMATOCRIT 37.3 % (36.0-47.0); HEMOGLOBIN 12.2 g/dl (12.0-15.5)
[2020-01-12 04:00] VITALS: BP 121/79
[2020-01-12] MEDS: SLF 3 ML SYR IV SCH ×3 (05:33→21:21)
[2020-01-12 06:05] LABS: BLOOD UREA NITROGEN 32 MG/DL (7-18); CALCIUM LEVEL 7.8 MG/DL (8.8-10.2); CARBON DIOXIDE LEVEL 27 MEQ/L (21-32); CHLORIDE LEVEL 105 MEQ/L (98-107); CREATININE FOR GFR 0.67 MG/DL (0.55-1.30); GLOMERULAR FILTRATION RATE > 60.0 (>32); GLUCOSE, FASTING 76 MG/DL (70-100); POTASSIUM SERUM 4.7 MEQ/L (3.5-5.1); SODIUM LEVEL 136 MEQ/L (136-145)
[2020-01-12 08:00] VITALS: BP 125/79
[2020-01-12 08:25] LABS: HEMATOCRIT 35.9 % (36.0-47.0); HEMOGLOBIN 11.5 g/dl (12.0-15.5); MEAN CORPUSCULAR HEMOGLOBIN 23.5 pg (27.0-33.0); MEAN CORPUSCULAR VOLUME 73.3 fl (80.0-96.0); PLATELET COUNT, AUTOMATED 234 10^3/uL (150-450); WHITE BLOOD COUNT 10.9 10^3/uL (4.0-10.0)
[2020-01-12] MEDS: PANTOPRAZOLE 40MG TAB (PROTONIX) PO SCH ×2 (09:13→21:22)
[2020-01-12] MEDS: SERTRALINE HCL 50 MG TAB PO SCH (09:14)
[2020-01-12] MEDS: SUCRALFATE 1 GM TAB PO SCH ×4 (09:14→21:21)
[2020-01-12] MEDS: POTASSIUM CHLORIDE 10 MEQ SR TABLET PO SCH ×2 (09:14→21:21)
[2020-01-12] MEDS: METOPROLOL SUCC *XL* 12.5MG PER 1/2 TAB (TopROL *XL*) PO SCH (09:14)
[2020-01-12] MEDS: SINEMET 25-100 MG TAB PO SCH ×4 (09:14→21:21)
[2020-01-12] MEDS ORDERED: FERROUS SULFATE 325MG TAB PO SCH (11:00)
[2020-01-12] MEDS ORDERED: FUROSEMIDE 40 MG/4 ML VIAL (J1940) IV ONE (11:00)
--- NOTE | 2020-01-12 11:16 | IPNPDOC ---
Text Note Date of Service The patient was seen on 01/12/20. NOTE S: Pt examined at bedside with family in room. Has no complaints. Feeling well. Denies shortness of breath melena or hematochezia. Tolerating diet well. No chest pain, shortness of breath, nausea, vomiting, abdominal pain. Did not clear PT/OT and family is concerned about her living along at home and unable to care for self, and fall risk. PFS, PT/OT on board. PE: Vitals: see below General: NAD, A&Ox3, resting comfortably, answers simple questions with baseline Parkinson's HEENT: NCAT, EOMI, anicteric sclera, MMM, no conjunctival pallor CV: RRR, no murmurs or clicks or rub. 1+ LE edema b/l, worse on right, no appreciable JVD RESP: equal chest rise, no accessory muscle use, no resp distress, on room air, bibasilar crackles, remaining lung avitia clear ABD: soft, NT, ND. Normoactive bowel sounds, no masses. No rebound, guarding, rigidity EXTREMITIES: 2+ radial & dp pulses b/l, able to move all extremities NEURO: no focal deficits or acute changes A/P: This 84-year-old female presented for shortness of breath, melenotic diar que, orthopnea, PND for the past few days. On admission, was found to have a drop in hemoglobin from 9.6 to 7.4 over one month, positive heme-occult in ER, and signs of fluid overload, elevated BNP, and cardiomegaly on CXR. Concern for GI bleed and possible new onset CHF. 1. Dyspnea - likely multifactorial: symptomatic acute on chronic anemia [acute blood loss anemia] from possible upper GI bleed, & fluid overload from possible new acute decompensated CHF - s/p 4U transfused total, with Hgb remaining stable 11-12 with improvement in symptoms. - Monitor. Transfuse as needed to maintain >8 or resolution of symptoms 2. Melena, possible upper GI bleed - see #1 - no melena since admission. Continue po protonix & carafate - Discussed with Dr. Felipe-plans for possibly EGD/colon outpatient; follow up in office - anemia w/u confirms baseline chronic anemia with low iron. Start on po iron 3. Fluid overload, possible new onset acute decompensated CHF - see #1 - comfortably breathing room air, diurese as needed - 2L fluid restrict, strict I/O, daily weight - on tele, echo completed-report pending 4. Elevated troponin- likely NSTEMI Type 2 (demand ischemia 2/2 anemia vs fluid overload) - hemodynamically stable, no cardiac complaints - repeat cardiac markers improved - Will repeat EKG today to follow-up with prior T-wave inversions V1 to V3 - Follow-up outpatient cardio 5. RLE edema > left - possible DVT. No erythema or tenderness - doppler ordered - encourage ambulation. Work with PT/OT Depression -stable. Continue Sertraline HTN - stable, continue home Metoprolol w/ hold parameters Parkinson's Dementia - Continue home Sinemet DVT ppx: mechanical. Avoid AC given GI bleed concern GI ppx: po protonix & carafate CODE STATUS: FULL CODE - discussed and confirmed with pt and son in detail on admission DISPO: pending clinical improvement, PT/OT, possible rehab vs placement vs home with services. Likely d/c 24-48 hrs. VS,Fishbone, I+O VS, Fishbone, I+O Laboratory Tests 01/11/20 12:15 01/11/20 17:46 01/12/20 00:18 01/12/20 05:16 Vital Signs Date Time Temp Pulse Resp B/P (MAP) Pulse Ox O2 Delivery O2 Flow Rate FiO2 01/12/20 09:14 77 125/79 01/12/20 08:00 97.4 20 92 Room Air I&O- Last 24 Hours up to 6 AM 01/12/20 06:00 Intake Total 1030 ml Output Total 950 ml Balance 80 ml GME ATTESTATION GME ATTESTATION My faculty preceptor for this patient encounter was physically present during the encounter and was fully available. All aspects of the patient interview, examination, medical decision making process, and medical care plan development were reviewed and approved by the faculty preceptor. The faculty preceptor is aware and concurs with the plan as stated in the body of this note and will attest to such by his/her cosignature. ATTENDING NOTE I, Peter Mendoza, have independently examined this patient and performed my own physical exam, as well as reviewed the documentation and edited where necessary. I have discussed in detail with the resident / student the findings and plan of treatment as documented by the resident / student and edited their note. I agree with their findings and treatment plan and have edited their documentation. I will continue to follow the patient during this hospital stay. REINALDO MCKEON DO Jan 12, 2020 11:16 PETER MENDOZA MD Jan 12, 2020 12:13
--- NOTE | 2020-01-12 11:47 | REP ---
Clinical: Right lower extremity pain and swelling . Technique: Hart scale and color Doppler evaluation using linear high frequency transducer. Findings: Ultrasound examination of the right lower extremity deep venous structures demonstrates normal appearance to the common femoral vein, superficial femoral vein and proximal popliteal vein. Occlusive thrombus identified in the mid/distal popliteal vein through the visualized tibioperoneal trunk. Impression: Acute thrombosis involving the popliteal vein and tibioperoneal trunk. Electronically Signed by León Brooks MD 01/12/2020 11:39 A
--- NOTE | 2020-01-12 14:17 | ECHO ---
DATE OF PROCEDURE: 01/10/2020 REFERRING PHYSICIAN: Dr. Chi Aviles INDICATION: Dyspnea. HEIGHT: 160 cm. WEIGHT: 63 kg. DIMENSIONS: IVS 1.0 LV 3.8 LVPW 1.0 LA 2.9 Aorta 3.3 RV 3.8 Mitral E wave velocity 38 A wave 77 E prime septal 3.9 E prime lateral 2.8 FINDINGS: The study is of acceptable technical quality. The patient is in sinus rhythm with very frequent supraventricular ectopy. Left ventricle is of normal size and grossly normal systolic function, I estimate EF around 60%. No apparent wall motion abnormalities are appreciated. Right ventricle is dilated and hypokinetic. Left atrium is at least mildly enlarged. Right atrium was poorly visualized but appears enlarged as well. Aortic valve has three cusps. It is sclerotic but has preserved mobility. There are also degenerative abnormalities of mitral valve with mitral annular calcifications but preserved mobility of mitral leaflets. Tricuspid and pulmonic valves appear normal. No pericardial effusion is noted. Inferior vena cava was not visualized. Aortic root and visualized segment of aortic arch appear normal. Doppler interrogation of aortic valve reveals no stenosis and mild insufficiency. There is also trace mitral and tricuspid insufficiency. Calculated pulmonary artery pressure is in a minimum around 40 mmHg assuming normal central venous pressure. Mild pulmonary insufficiency seen. Mitral inflow pattern and tissue Doppler imaging of mitral annulus reveal grade 1 diastolic dysfunction. CONCLUSIONS: 1. Study is of fair technical quality, the patient is in sinus rhythm with frequent supraventricular ectopy. 2. Normal LV size and systolic function, grade 1 diastolic dysfunction. 3. Aortic sclerosis but no stenosis and mild insufficiency. 4. No further significant valvular disease. 5. Unable to estimate central venous pressure but most likely at least moderate pulmonary hypertension. 6. Dilated right ventricle. COMMENT: SBE prophylaxis is not recommended.
[2020-01-12] MEDS ORDERED: LIDOCAINE 1% MDV 20ML VIAL As Ordered ONE (15:43)
[2020-01-12] MEDS ORDERED: fentaNYL 100 MCG/2 ML INJECTION (J3010) As Ordered ONE (15:52)
[2020-01-12] MEDS ORDERED: ISOVUE-300 61% 50ML VIAL (Q9967) As Ordered ONE (15:53)
[2020-01-12 18:00] VITALS: BP 115/79
--- NOTE | 2020-01-12 18:07 | ROOPDOC ---
[facility] Report Of Operation Report of Operation DATE OF PROCEDURE: 01/12/20 PREPROCEDURE DIAGNOSES: Right lower extremity DVT with contraindication to anticoagulation due to GI bleed POSTPROCEDURE DIAGNOSES: Same. PROCEDURE: 1. Ultrasound-guided access right common femoral artery 2. Vena cava gram 3. Placement of infrarenal IVC filter SURGEON: Nidhi Becerril MD ANESTHESIA: Local anesthesia 8 mL lidocaine INDICATION FOR PROCEDURE: This is a very pleasant 84-year-old patient who was admitted with a GI bleed and anemia and was noted to have a right lower extremity popliteal and tibial DVT on venous duplex. She has a contraindication to anticoagulation with GI bleed and anemia. Risks benefits and alternatives to an IVC filter were explained to the patient and her son. Although she is confused, she did agree to the procedure; and her son, who is her healthcare proxy, was also was agreeable and informed consent was obtained. REPORT OF OPERATION: The patient was brought to the angiographic suite in stable condition and placed supine on the fluoroscopic table. Her bilateral groins were prepped and draped in a sterile fashion. A timeout was performed. Local anesthesia was administered the skin and subcutaneous tissue over the right femoral vein and a microneedle was used to access the vein under ultrasound guidance. A wire was passed through this access and the needle was removed and a micro-sheath was placed and flushed with saline. We chance to Glidewire through this access under fluoroscopic guidance into the IVC above the renal veins. We then removed the micro-sheath and placed a long sheath over the wire into the distal IVC. The sheath was flushed with saline. A vena cava gram was performed in the renal veins were identified. We then advanced the sheath over the wire just inferior to the renal veins. We advanced the IVC filter through the sheath and deployed it with the proximal hook at the renal veins. Completion vena cava gram showed the filter to be in good position inferior to the renal veins with the most proximal aspect at the renal veins, and a mild tilt to the filter but not significant. We then removed the sheath and help pressure for 10 minutes for good hemostasis. The patient tolerated the procedure well there were no complications and she was taken back to her room in stable condition. ESTIMATED BLOOD LOSS: Approximately 1 mL. COMPLICATIONS: None PLAN: Recommend patient to be treated with anticoagulation if it becomes safe from a medical standpoint. We would be happy to see the patient back in 3 months to reimage her lower extremities and possibly consider removing the IVC filter if desired. It is also okay for the filter to remain in place if this is more beneficial to the patient. Okay to resume her preoperative diet and after 2 hours of bedrest, then it is okay also to resume her normal activity. NIDHI BECERRIL MD Jan 12, 2020 18:07
[2020-01-12 18:30] VITALS: BP 126/82
[2020-01-12] MEDS: LATANOPROST 0.005% OPHTH SOLN 2.5 ML OU SCH (21:22)
[2020-01-12 22:00] VITALS: BP 115/77
[2020-01-13] MEDS: SLF 3 ML SYR IV SCH ×3 (05:43→21:01)
[2020-01-13 06:00] VITALS: BP 113/76
[2020-01-13 06:22] LABS: BASO % 0.2 % (0.0-1.0); EOS # 0.1 10^3/uL (0.0-0.5); EOS % 0.6 % (0.0-3.0); HEMATOCRIT 36.2 % (36.0-47.0); HEMOGLOBIN 11.5 g/dl (12.0-15.5); LYMPH # 1.9 10^3/uL (1.5-5.0); LYMPH % 19.1 % (24.0-44.0); MEAN CORPUSCULAR HEMOGLOBIN 23.2 pg (27.0-33.0); MEAN CORPUSCULAR HGB CONC 31.8 g/dl (32.0-36.5); MONO # 0.8 10^3/uL (0.0-0.8); MONO % 8.4 % (0.0-5.0); NEUTROPHILS # 7.1 10^3/uL (1.5-8.5); PLATELET COUNT, AUTOMATED 202 10^3/uL (150-450); RED BLOOD COUNT 4.96 10^6/uL (4.00-5.40)
[2020-01-13 06:29] LABS: BLOOD UREA NITROGEN 32 MG/DL (7-18); CALCIUM LEVEL 8.1 MG/DL (8.8-10.2); CARBON DIOXIDE LEVEL 26 MEQ/L (21-32); CHLORIDE LEVEL 103 MEQ/L (98-107); CREATININE FOR GFR 0.76 MG/DL (0.55-1.30); GLOMERULAR FILTRATION RATE > 60.0 (>32); GLUCOSE, FASTING 91 MG/DL (70-100); POTASSIUM SERUM 4.7 MEQ/L (3.5-5.1); SODIUM LEVEL 136 MEQ/L (136-145)
--- NOTE | 2020-01-13 07:53 | ECGEPIP ---
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
[2020-01-13] MEDS: SINEMET 25-100 MG TAB PO SCH ×4 (08:41→21:01)
[2020-01-13] MEDS: SERTRALINE HCL 50 MG TAB PO SCH (08:41)
[2020-01-13] MEDS: METOPROLOL SUCC *XL* 12.5MG PER 1/2 TAB (TopROL *XL*) PO SCH (08:41)
[2020-01-13] MEDS: SUCRALFATE 1 GM TAB PO SCH ×4 (08:41→21:01)
[2020-01-13] MEDS: POTASSIUM CHLORIDE 10 MEQ SR TABLET PO SCH ×2 (08:41→21:01)
[2020-01-13] MEDS: PANTOPRAZOLE 40MG TAB (PROTONIX) PO SCH ×2 (08:41→21:01)
[2020-01-13 12:32] VITALS: BP_SYST 129; BP_SYST 130; BP_SYST 87; BP_DIAS 71; BP_DIAS 90
[2020-01-13] MEDS: FERROUS SULFATE 325MG TAB PO SCH (12:46)
[2020-01-13] MEDS: DOCUSATE SODIUM 100 MG CAP PO SCH ×2 (12:47→21:01)
[2020-01-13 14:00] VITALS: BP 108/70
--- NOTE | 2020-01-13 18:10 | IPNPDOC ---
Text Note Date of Service The patient was seen on 01/13/20. NOTE S: Pt examined at bedside No new complaints. Feeling well. Had her IVC placed yesterday with H&H remaining stable. No issues overnight. Continue with PT/OT, PFS for possible placement. Continues to be fluid overloaded with soft blood pressures, and lightheaded with ambulation. Otherwise doing well. PE: Vitals: see below General: NAD, A&Ox3,sitting comfortably, answers simple questions with baseline Parkinson's HEENT: NCAT, EOMI, anicteric sclera, MMM, no conjunctival pallor CV: RRR, no murmurs or clicks or rub. 1+ LE edema b/l, worse on right, no appreciable JVD RESP: equal chest rise, no accessory muscle use, no resp distress, on room air, bibasilar crackles, remaining lung avitia clear ABD: soft, NT, mildly distended. Tympanic. Normoactive bowel sounds, no masses. No rebound, guarding, rigidity EXTREMITIES: 2+ radial & dp pulses b/l, able to move all extremities NEURO: no focal deficits or acute changes A/P: This 84-year-old female presented for shortness of breath, melenotic diarrhea, orthopnea, PND for the past few days. On admission, was found to have a drop in hemoglobin from 9.6 to 7.4 over one month, positive heme-occult in ER, and signs of fluid overload, elevated BNP, and cardiomegaly on CXR. Concern for GI bleed and possible new onset CHF. Dyspnea - improving - likely multifactorial: symptomatic acute on chronic anemia [acute blood loss anemia] from possible upper GI bleed, & fluid overload from new acute decompensated CHF - s/p 4U transfused total, with Hgb remaining stable 11-12 with improvement in symptoms. - Monitor. Transfuse as needed to maintain >8 or resolution of symptoms - Will also require diuresis when blood pressure allows Melena, possible upper GI bleed - see #1 - no melena since admission. Continue po protonix & carafate - Discussed with Dr. Felipe-plans for possibly EGD/colon outpatient; follow up in office - anemia w/u confirms baseline chronic anemia with low iron. Started on po iron Fluid overload, likely new onset acute decompensated diastolic CHF - see #1 - Echo: EF 60%, grade 1 diastolic dysfunction, moderate pulmonary hypertension, unable to assess CVP - comfortably breathing room air, hold off on diuresis currently given soft blood pressures and positive orthostatics - 2L fluid restrict, strict I/O, daily weight - monitor on telemetry, no events thus far Dizziness -Patient has positive orthostatics and soft blood pressures -Avoid giving fluids given her decompensated CHF, & avoid diuresis given low BP -Continue work with PT/OT and will consider decreasing metoprolol upon reassessment -Continue checking orthostatics RLE DVT -doppler: Acute thrombosis involving the popliteal vein and tibioperoneal trunk -This was discussed in depth with patient family yesterday, including risks of bleed with anticoagulation - They consented to proceed with IVC filter which was placed 01/12/[address] Davenports - hemodynamically stable Elevated troponin- likely NSTEMI Type 2 (demand ischemia 2/2 anemia vs fluid overload) - hemodynamically stable, no cardiac complaints - repeat cardiac markers improved - Follow-up outpatient cardio Depression -stable. Continue Sertraline HTN - stable, continue home Metoprolol w/ hold parameters Parkinson's Dementia - Continue home Sinemet DVT ppx: mechanical. Avoid AC given GI bleed concern GI ppx: po protonix & carafate CODE STATUS: FULL CODE - discussed and confirmed with pt and son in detail on admission DISPO: pending clinical improvement, PT/OT, possible rehab vs placement vs home with services. Likely d/c 24-48 hrs. VS,Fishbone, I+O VS, Fishbone, I+O Laboratory Tests 01/13/20 05:37 Vital Signs Date Time Temp Pulse Resp B/P (MAP) Pulse Ox O2 Delivery O2 Flow Rate FiO2 01/13/20 14:00 97.0 82 20 108/70 (83) 95 01/13/20 06:00 Room Air 01/12/20 16:44 2 I&O- Last 24 Hours up to 6 AM 01/13/20 06:00 Intake Total 1040 ml Output Total 300 ml Balance 740 ml GME ATTESTATION GME ATTESTATION My faculty preceptor for this patient encounter was physically present during the encounter and was fully available. All aspects of the patient interview, examination, medical decision making process, and medical care plan development were reviewed and approved by the faculty preceptor. The faculty preceptor is aware and concurs with the plan as stated in the body of this note and will attest to such by his/her cosignature. REINALDO MCKEON DO Jan 13, 2020 18:10
[2020-01-13] MEDS: LATANOPROST 0.005% OPHTH SOLN 2.5 ML OU SCH (21:02)
[2020-01-13 22:00] VITALS: BP_SYST 107; BP_SYST 109; BP_SYST 111; BP_DIAS 72; BP_DIAS 74; BP_DIAS 75; BP_DIAS 77
[2020-01-14 05:29] VITALS: BP_SYST 100; BP_SYST 105; BP_SYST 92; BP_DIAS 61; BP_DIAS 63; BP_DIAS 71
[2020-01-14] MEDS: SLF 3 ML SYR IV SCH ×3 (05:29→20:13)
[2020-01-14 06:00] VITALS: BP 100/63
[2020-01-14 06:10] LABS: BASO % 0.2 % (0.0-1.0); EOS # 0.1 10^3/uL (0.0-0.5); EOS % 0.6 % (0.0-3.0); HEMATOCRIT 33.4 % (36.0-47.0); HEMOGLOBIN 10.8 g/dl (12.0-15.5); LYMPH # 1.9 10^3/uL (1.5-5.0); LYMPH % 20.6 % (24.0-44.0); MEAN CORPUSCULAR HEMOGLOBIN 23.7 pg (27.0-33.0); MEAN CORPUSCULAR HGB CONC 32.3 g/dl (32.0-36.5); MEAN CORPUSCULAR VOLUME 73.2 fl (80.0-96.0); MONO # 0.8 10^3/uL (0.0-0.8); MONO % 8.6 % (0.0-5.0); NEUTROPHILS # 6.5 10^3/uL (1.5-8.5); NEUTROPHILS % 68.9 % (36.0-66.0); PLATELET COUNT, AUTOMATED 202 10^3/uL (150-450); RED BLOOD COUNT 4.56 10^6/uL (4.00-5.40); WHITE BLOOD COUNT 9.4 10^3/uL (4.0-10.0)
[2020-01-14 06:33] LABS: BLOOD UREA NITROGEN 33 MG/DL (7-18); CALCIUM LEVEL 8.5 MG/DL (8.8-10.2); CARBON DIOXIDE LEVEL 26 MEQ/L (21-32); CHLORIDE LEVEL 101 MEQ/L (98-107); CREATININE FOR GFR 0.58 MG/DL (0.55-1.30); GLOMERULAR FILTRATION RATE > 60.0 (>32); GLUCOSE, FASTING 94 MG/DL (70-100); POTASSIUM SERUM 4.6 MEQ/L (3.5-5.1); SODIUM LEVEL 130 MEQ/L (136-145)
[2020-01-14] MEDS: SUCRALFATE 1 GM TAB PO SCH ×4 (09:07→20:12)
[2020-01-14] MEDS: PANTOPRAZOLE 40MG TAB (PROTONIX) PO SCH ×2 (09:07→20:12)
[2020-01-14] MEDS: DOCUSATE SODIUM 100 MG CAP PO SCH ×2 (09:07→20:12)
[2020-01-14] MEDS: POTASSIUM CHLORIDE 10 MEQ SR TABLET PO SCH ×2 (09:07→20:13)
[2020-01-14] MEDS: SINEMET 25-100 MG TAB PO SCH ×4 (09:07→20:13)
[2020-01-14] MEDS: SERTRALINE HCL 50 MG TAB PO SCH (09:07)
[2020-01-14 09:11] VITALS: BP 111/74
[2020-01-14] MEDS: METOPROLOL SUCC *XL* 12.5MG PER 1/2 TAB (TopROL *XL*) PO SCH (09:11)
[2020-01-14] MEDS ORDERED: FUROSEMIDE 40 MG/4 ML VIAL (J1940) IV ONE (11:45)
[2020-01-14] MEDS: FERROUS SULFATE 325MG TAB PO SCH (11:56)
[2020-01-14] MEDS ORDERED: FERR325T18 PO (12:59)
[2020-01-14] MEDS ORDERED: SUCR1TA PO (12:59)
[2020-01-14] MEDS ORDERED: LASI20TA3 PO (12:59)
[2020-01-14] MEDS ORDERED: POTA20TA6 PO (12:59)
[2020-01-14] MEDS ORDERED: PANT40TA3 PO (12:59)
[2020-01-14 14:00] VITALS: BP 114/79
--- NOTE | 2020-01-14 14:59 | DS.PDOC ---
Discharge Summary General Date of Admission Jan 09, 2020 at 15:33 Date of Discharge 01/14/20 Attending Physician: PAULA CASTANO MD Specialist/Consultants Involve: NIDHI DOUGHERTY MD Discharge Summary PROCEDURES PERFORMED DURING STAY: IVC filter placement, 4U PRBC transfused DISCHARGE DIAGNOSES: *1. Acute on chronic anemia 2/2 acute blood loss, suspected upper GI bleed *2. Acutely decompensated grade 1 diastolic CHF [new] *3. Orthostatic hypotension and dizziness *4. Right lower extremity DVT [new] *5. NSTEMI type II, demand ischemia 2/2 anemia and acutely decompensated CHF [new] 6. Depression 7. Hypertension 8. Parkinson's dementia HISTORY OF PRESENT ILLNESS: This 84-year-old female presented for shortness of breath, melenotic diarrhea, orthopnea, PND for the past few days. On admission, was found to have a drop in hemoglobin from 9.6 to 7.4 over one month, positive heme-occult in ER, and signs of fluid overload, elevated BNP at 964, and cardiomegaly on CXR. Concern for suspected upper GI bleed and possible new onset CHF. HOSPITAL COURSE: She was admitted and required total of 4 units of blood transfusions, with hemoglobin remaining stable thereafter around 11-12. Surgery was also consulted due to concern for upper GI bleed. She was started on Protonix & carafate with plans for possible EGD and colonoscopy, however during the interim, she developed elevated troponins as high as 0.14, ultimately trending back down. Repeat EKG also revealed what appears to be new T-wave inversions in V1 through V3. Although patient was otherwise hemodynamically stable and had no cardiac complaints, upper and lower scopes were then deferred for outpatient follow-up. Anemia workup revealed baseline chronic anemia, as well as iron deficiency. She was started on iron supplementation. Regarding her fluid overload, diuresis was held off due to borderline soft blood pressures. She was started on fluid restriction, strict I's and O's and daily weights. No significant events on telemetry. Echo revealed grade 1 diastolic dysfunction, confirming what appears to be a new onset of CHF. Results and plan was discussed with patient and her family. Also during this time, she was found to have more edema in the right lower extremity compared to left, Doppler confirming a DVT. This is discussed with patient and family in depth, including risks of recurrent bleed with anticoagulation. Patient & family proceeded with an IVC filter placed by Dr. Valencia. Ms. Krause worked with PT and OT, however complained of dizziness on ambulation. Orthostatics were positive, but unable to give fluids due to her hypervolemic state, and limited diuresis due to soft blood pressures and positive orthostatics. She continued to work with therapy, and repeat orthostatics ultimately became negative with resolution of her symptoms. She was started on diuretics and discharged on 20 mg of Lasix, and to check da roselyn weights and double up on her dose should she gain more than 2 pounds. She will be going to acute rehabilitation to continue her therapy, where her blood pressure and volume status will also be monitored. Patient is instructed to closely follow-up outpatient with GI and cardiology. She is otherwise stable and will be discharged to the acute rehab floor. DISCHARGE MEDICATIONS: Please see below. ALLERGIES: Please see below. PHYSICAL EXAMINATION ON DISCHARGE: VITAL SIGNS: Please see below. General: NAD, A&Ox3,sitting comfortably, answers simple questions with baseline Parkinson's HEENT: NCAT, EOMI, anicteric sclera, MMM, no conjunctival pallor CV: RRR, no murmurs or clicks or rub. 1+ LE edema b/l, no appreciable JVD RESP: equal chest rise, no accessory muscle use, no resp distress, on room air, bibasilar crackles, remaining lung avitia clear ABD: soft, NT, mildly distended. Normoactive bowel sounds, no masses. No rebound, guarding, rigidity EXTREMITIES: 2+ radial & dp pulses b/l, able to move all extremities NEURO: no focal deficits or acute changes LABORATORY DATA: Please see below. IMAGING: * 01/09/20 CXR: Linear fibrosis left base. Mild cardiomegaly. Otherwise no acute disease. * 01/10/20 left knee x-ray: Advanced arthritic changes. No acute fracture or dislocation. * 01/10/[address]: No acute intracranial abnormality. * 01/10/20 echo: 1. Study is of fair technical quality, the patient is in sinus rhythm with frequent supraventricular ectopy. 2. Normal LV size and systolic function, grade 1 diastolic dysfunction. 3. Aortic sclerosis but no stenosis and mild insufficiency. 4. No further significant valvular disease. 5. Unable to estimate central venous pressure but most likely at least moderate pulmonary hypertension. 6. Dilated right ventricle. * 01/12/20 right leg Doppler: Acute thrombosis involving the popliteal vein and tibioperoneal trunk. PROGNOSIS: fair ACTIVITY: As tolerated. DIET: 2g sodium with 2L fluid restriction DISPOSITION: to Acute Rehab Unit DISCHARGE INSTRUCTIONS: 1. Follow-up with PCP within a week 2. Return to ER for emergency 3. Comply with 2 L fluid restriction 4. Check daily weights and take second dose of Lasix if gain more than 2 pounds DISCHARGE CONDITION: Stable. TIME SPENT ON DISCHARGE: Greater than 35 minutes. Vital Signs/I&Os Vital Signs Date Time Temp Pulse Resp B/P (MAP) Pulse Ox O2 Delivery O2 Flow Rate FiO2 01/14/20 14:00 97.9 85 17 114/79 (91) 97 Room Air 01/12/20 16:44 2 I&O- Last 24 Hours up to 6 AM0 01/14/20 06:00 Intake Total 1150 ml Output Total 225 ml Balance 925 ml Laboratory Data Labs 24H Laboratory Tests 2 01/14/20 05:49: Immature Granulocyte % (Auto) 1.1, Neutrophils (%) (Auto) 68.9H, Lymphocytes (%) (Auto) 20.6L, Monocytes (%) (Auto) 8.6H, Eosinophils (%) (Auto) 0.6, Basophils (%) (Auto) 0.2, Neutrophils # (Auto) 6.5, Lymphocytes # (Auto) 1.9, Monocytes # (Auto) 0.8, Eosinophils # (Auto) 0.1, Basophils # (Auto) 0.0, Nucleated Red Blood Cells % (auto) 0.0, Anion Gap 3L, Glomerular Filtration Rate > 60.0, Calcium Level 8.5L, Magnesium Level 2.0 CBC/BMP Laboratory Tests 01/14/20 05:49 Discharge Medications Scheduled Carbidopa/Levodopa (Carbidopa-Levodopa 25-100 Tab) 1 Each Tablet, 1 TAB PO QID, (Reported) 0800/1200/1600/2000 Denosumab Injection (Prolia) 60 Mg/1 Ml Syringe, 60 MG SC ASDIRECTED, (Reported) EVERY 6 MONTHS, LAST RECEIVED IN FALL PER PT Ferrous Sulfate (Ferrous Sulfate) 325 Mg Tablet, 325 MG PO DAILY@1100 Furosemide (Lasix) 20 Mg Tablet, 1 TAB PO DAILY Latanoprost (Xalatan) 0.005% 2.5ML Drops, 1 DROP OU QHS, (Reported) Metoprolol Succinate (Metoprolol Succinate) 25 Mg Tab, 12.5 MG PO DAILY, (Reported) Pantoprazole Sodium (Pantoprazole Sodium) 40 Mg Tablet.dr, 40 MG PO DAILY Potassium Chloride (Potassium Chloride) 20 Meq Tab.er.prt, 20 MEQ PO DAILY Sertraline HCl (Sertraline HCl) 50 Mg Tab, 50 MG PO DAILY, (Reported) Sucralfate (Sucralfate) 1 Gm Tablet, 1 GM PO DAILY Allergies Coded Allergies: codeine (Verified Adverse Reaction, Intermediate, N/V, 11/21/19) GME ATTESTATION GME ATTESTATION My faculty preceptor for this patient encounter was physically present during the encounter and was fully available. All aspects of the patient interview, examination, medical decision making process, and medical care plan development were reviewed and approved by the faculty preceptor. The faculty preceptor is aware and concurs with the plan as stated in the body of this note and will attest to such by his/her cosignature. REINALDO MCKEON DO Jan 14, 2020 14:59
[2020-01-14 15:00] VITALS: BP_SYST 107; BP_SYST 114; BP_SYST 122; BP_DIAS 69; BP_DIAS 79; BP_DIAS 86
[2020-01-14] MEDS: ACETAMINOPHEN TAB 650MG DOSE (2X325MG) PO PRN (15:27)
[2020-01-14] MEDS: LATANOPROST 0.005% OPHTH SOLN 2.5 ML OU SCH (20:13)
== END 2020-01-14 20:45 | DRG 356 ==
LOC: M ED 12:26 → M ED INP 15:33 → ENRESERV 15:47 → M PCU 17:16 → M MSPAV 01-12 18:22
PROVIDERS: ADMIT Internal Medicine; ATTEND Internal Medicine
PROC: 30233N1 Transfusion of Nonautologous Red Blood Cells into Peripheral Vein, Percutaneous Approach (ICD-10-PCS; 2020-01-09)
PROC: B519ZZA Fluoroscopy of Inferior Vena Cava, Guidance (ICD-10-PCS; 2020-01-12)
PROC: 06L03DZ Occlusion of Inferior Vena Cava with Intraluminal Device, Percutaneous Approach (ICD-10-PCS; principal; 2020-01-12 16:30)
DX: K92.2 Gastrointestinal hemorrhage, unspecified (principal); I21.A1 Myocardial infarction type 2; I50.31 Acute diastolic (congestive) heart failure; D62 Acute posthemorrhagic anemia; I82.431 Acute embolism and thrombosis of right popliteal vein; G20 Parkinson's disease; F02.80 Dementia in other diseases classified elsewhere, unspecified severity, without behavioral disturbance, psychotic disturbance, mood disturbance, and anxiety; I11.0 Hypertensive heart disease with heart failure; F03.90 Unspecified dementia, unspecified severity, without behavioral disturbance, psychotic disturbance, mood disturbance, and anxiety; F32.9 Major depressive disorder, single episode, unspecified; Z98.41 Cataract extraction status, right eye; Z98.42 Cataract extraction status, left eye; H91.93 Unspecified hearing loss, bilateral; Z97.4 Presence of external hearing-aid; Z79.899 Other long term (current) drug therapy; Z88.5 Allergy status to narcotic agent

== ENCOUNTER 2020-01-14 16:51 | Inpatient (IN) | payer MEDICARE ==
[~2020-01-14] VITALS: Ht 160 cm; Wt 63.6 kg
[~2020-01-14 16:51] MED LIST changes: +CARB25TA9 PO; +FERR325T18 PO; +LASI20TA3 PO; +PANT40TA3 PO; +POTA20TA6 PO; +PROL60SO SC; +SUCR1TA PO; +XALA0.007 OU
[2020-01-14] MEDS ORDERED: MOM 30ML SUSPENSION UDC PO PRN (17:45)
--- NOTE | 2020-01-14 17:53 | HPEPDOC ---
[facility] [facility] [employer] Note DATE OF ADMISSION: 01-14-20 DATE OF SERVICE: 01-15-20 TIME OF ADMISSION: Please refer to physician's admission order. SOURCE OF ADMISSION INFORMATION: [facility] record and patient CHIEF COMPLAINT: GI bleed with acute CHF exacerbation and orthostatic hypotension HISTORY OF PRESENT ILLNESS: 84F pmh chronic anemia, HTN, parkinsons with dementia, depression who presented to [facility] ED on 01-09-20 with dark stools and shortness of breath, where she was found to have a Hgb of 7.4 and a positive FOBT. She was admitted for anemia due to GI loss and also noted to be in acute heart failure with inhouse ECHO showing, Normal LV size and systolic function, grade 1 diastolic dysfunction. She was seen by surgery who recommended outpatient endoscopy/colonoscopy and she was transfused multiple units of rbcs. She was found to have demand ischemia NSTEMI and later diagnosed with a RLE DVT, Acute thrombosis involving the popliteal vein and tibioperoneal trunk for which she underwent IVC filter placement 01-12-20 without complication. She was evaluated by therapy, found to have impairments in mobility and ADLs below her prior level of function with orthostatic hypotension and deemed appropriate for discharge to ARU on 01-14-20. REVIEW OF SYSTEMS: The following is a completed review of systems and has been reviewed. Review of systems otherwise unremarkable. PAIN: Patient self reports no pain EYES: No recent vision changes EARS, NOSE, & THROAT: No throat pain, or dysphagia, or rhinorrhea CARDIOVASCULAR: Denies chest pain or palpitations PULMONARY: Denies shortness of breath GASTROINTESTINAL: Denies constipation/diarrhea GENITOURINARY: denies dysuria MUSCULOSKELETAL: +generalized weakness NEUROLOGICAL: +parkinson's HEMATOLOGICAL: +anemia SKIN: no rash PSYCHIATRIC: Unremarkable All other review of systems found to be negative. PAST MEDICAL HISTORY: as per HPI PAST SURGICAL HISTORY: Tubal ligation, bilat cataract ALLERGIES: Please see below. MEDICATIONS: Please see below. SOCIAL HISTORY: no etoh/smoking, illicit drugs DIET: 2 gram sodium, fluid restrict PHYSICAL EXAMINATION: VITAL SIGNS: Please see below. GENERAL: Pleasant and cooperative. No acute distress. HEENT: PERRL. Extraocular movements intact. Clear conjunctiva, nasal bridge ecchymosis CARDIOVASCULAR: Regular rate and rhythm. No murmurs, rubs, or gallops LUNGS: Clear to auscultation bilaterally. No wheezes. No rhonchi ABDOMEN: Soft, nontender, nondistended. Positive bowel sounds. Normal active bowel sounds NEUROLOGICAL: Alert and oriented times three. Cranial nerves II through XII grossly intact. Sensation grossly intact EXTREMITIES: 4\5 strength bilateral upper extremities. 4\5 strength right lower extremity. 4/5 strength in left lower extremity. SKIN: no sacral erythema LABORATORY DATA: Please see below. IMAGING: Imaging documentation personally reviewed by record FUNCTIONAL STATUS: Premorbid: Mod-Independent with all activities of daily life as well as mobility with cane On Admission: Min-Mod assist for functional transfers, dressing, toileting, contact guard for ambulation GOALS: Mod-I ambulating community distances, stairs, functional transfers, bathing, dressing, toileting, fall recovery, medical optimization ASSESSMENT:84-year-old F with past medical history of parkinson's disease who presents status post GI bleed with acute CHF exacerbation and orthostatic hypotension PLAN: 1. Rehab- PT/OT advance gait and ADL training, dynamic balance training, fall recovery, strengthen/stretch/maintain ROM all 4 limbs 2. Neuro: hx of Parkinsons- c/u Sinemet -hx of dementia -orthostatic hypotension likely due to autonomic dysfunction in setting of parkinson's, will start Mestinon 15mg TID and monitor 3. cardiac: whx of HTN, given orthostatic will hold metoprolol and start Mestinon for BP support-medicine consulted to assist in management -grade 1 diastolic CHF- fluid restrict, daily weights, lasix -f/u cardiology for recent acute diastolic CHF exacerbation 4. Resp: monitor for infection, encourage incentive spirometry 5. GI: hx of GI bleed with +FOBT, c/u protonix and sucralfate -f/u surgery for GI w/u 6. DVT ppx: -right LE DVT s/p IVC filter, AC contraindicated 7. : monitor PVRs 8. Pain: tylenol prn 9. Psych: ZOloft for depression 10. Dispo: tbd POST ADMISSION PHYSICIAN EVALUATION: Medical and functional status: Description of medical status, medical assessment: As above. Rehabilitation diagnosis and current and prior cold morbid medical conditions as above. Risk of complications and plans to mitigate them as above. Description of functional status current status is as above. Prior status as above. Status compared to preadmission: There are no clinically significant differences between the patient's current status and the information described on the preadmission screening document. Treatment plan anticipated: Treatment plan is as described above. Required disciplines including physical therapy, occupational therapy, others as noted above. Intensity of services: 3 hours a day, 6 days a week. Special considerations: There are no specific special or safety considerations that would likely preclude immediate implementation of an intensive rehabilitation program or subsequently influence the plan of care ATTESTATION: Considering all the information above, it is my best judgment that this patient requires intensive rehabilitation therapy as described above and an inpatient hospital environment due to the complexity of nursing, medical, and rehabilitation needs required by the patient. Furthermore, this patient can reasonably be expected to participate in an benefit from an inpatient rehabilitation stay with an interdisciplinary team approach to the delivery of rehabilitation care under the direction and supervision of rehabilitation physician PROGNOSIS: good ESTIMATED LENGTH OF STAY:14-18 days. PROJECTED DISCHARGE DESTINATION: Home with family support and any durable medical equipment required to increase functional safety and mobility TIME SPENT COUNSELING AND COORDINATING INITIAL CARE: Greater than 70 minutes. Vital Signs Vital Signs Date Time Temp Pulse Resp B/P (MAP) Pulse Ox O2 Delivery O2 Flow Rate FiO2 01/14/20 21:30 96.9 74 18 113/81 (92) 93 Room Air Home Medications Scheduled Carbidopa/Levodopa (Carbidopa-Levodopa 25-100 Tab) 1 Each Tablet, 1 TAB PO QID, (Reported) 0800/1200/1600/2000 Denosumab Injection (Prolia) 60 Mg/1 Ml Syringe, 60 MG SC ASDIRECTED, (Reported) EVERY 6 MONTHS, LAST RECEIVED IN FALL PER PT Ferrous Sulfate (Ferrous Sulfate) 325 Mg Tablet, 325 MG PO DAILY@1100 Furosemide (Lasix) 20 Mg Tablet, 1 TAB PO DAILY Latanoprost (Xalatan) 0.005% 2.5ML Drops, 1 DROP OU QHS, (Reported) Metoprolol Succinate (Metoprolol Succinate) 25 Mg Tab, 12.5 MG PO DAILY, (Reported) Pantoprazole Sodium (Pantoprazole Sodium) 40 Mg Tablet.dr, 40 MG PO DAILY Potassium Chloride (Potassium Chloride) 20 Meq Tab.er.prt, 20 MEQ PO DAILY Sertraline HCl (Sertraline HCl) 50 Mg Tab, 50 MG PO DAILY, (Reported) Sucralfate (Sucralfate) 1 Gm Tablet, 1 GM PO DAILY Allergies Coded Allergies: codeine (Verified Adverse Reaction, Intermediate, N/V, 11/21/19) A-FIB/CHADSVASC A-FIB History Current/History of A-Fib/PAF?: No EUGENIE BOONE MD Jan 14, 2020 17:53
[2020-01-14 21:30] VITALS: BP 113/81
[2020-01-14] MEDS: SENNA 8.6 MG TAB (SENOKOT) PO SCH (22:27)
[2020-01-14] MEDS ORDERED: PILL CUTTER 1 EACH XX PRN (22:30)
[2020-01-14] MEDS: PYRIDOSTIGMINE 60 MG TAB PO SCH (23:22)
[2020-01-15 05:50] VITALS: BP 127/78
[2020-01-15 05:53] VITALS: BP 122/76
[2020-01-15 05:56] VITALS: BP 113/78
[2020-01-15 07:38] LABS: ALBUMIN 1.9 GM/DL (3.2-5.2); ALT/SGPT 11 U/L (12-78); BILIRUBIN,TOTAL 0.6 MG/DL (0.2-1.0); BLOOD UREA NITROGEN 29 MG/DL (7-18); CARBON DIOXIDE LEVEL 27 MEQ/L (21-32); CHLORIDE LEVEL 100 MEQ/L (98-107); CREATININE FOR GFR 0.62 MG/DL (0.55-1.30); GLOMERULAR FILTRATION RATE > 60.0 (>32); GLUCOSE, FASTING 81 MG/DL (70-100); POTASSIUM SERUM 4.5 MEQ/L (3.5-5.1); SODIUM LEVEL 132 MEQ/L (136-145); TOTAL PROTEIN 5.7 GM/DL (6.4-8.2)
[2020-01-15 08:59] LABS: HEMATOCRIT 32.9 % (36.0-47.0); HEMOGLOBIN 10.3 g/dl (12.0-15.5); MEAN CORPUSCULAR HEMOGLOBIN 23.1 pg (27.0-33.0); MEAN CORPUSCULAR HGB CONC 31.3 g/dl (32.0-36.5); MEAN CORPUSCULAR VOLUME 73.8 fl (80.0-96.0); PLATELET COUNT, AUTOMATED 207 10^3/uL (150-450); RED BLOOD COUNT 4.46 10^6/uL (4.00-5.40); WHITE BLOOD COUNT 9.6 10^3/uL (4.0-10.0)
[2020-01-15] MEDS: REMEDY PHYTOPLEX Z-GUARD PASTE 113GM TUBE (FROM STOREROOM PRODUCT) TOP SCH ×3 (09:00→20:50)
[2020-01-15] MEDS: DOCUSATE SODIUM 100 MG CAP PO SCH ×2 (09:40→20:40)
[2020-01-15] MEDS: SERTRALINE HCL 50 MG TAB PO SCH (09:40)
[2020-01-15] MEDS: PYRIDOSTIGMINE 60 MG TAB PO SCH ×3 (09:40→20:40)
[2020-01-15] MEDS: SINEMET 25-100 MG TAB PO SCH ×4 (09:40→20:40)
[2020-01-15] MEDS: SUCRALFATE 1 GM TAB PO SCH ×4 (09:40→20:40)
[2020-01-15] MEDS: FUROSEMIDE 20 MG TAB PO SCH (09:41)
[2020-01-15] MEDS: PANTOPRAZOLE 40MG TAB (PROTONIX) PO SCH (09:41)
[2020-01-15] MEDS ORDERED: BISACODYL 10 MG SUPP PR ONE (11:00)
[2020-01-15] MEDS: FERROUS SULFATE 325MG TAB PO SCH (12:30)
[2020-01-15 14:00] VITALS: BP_SYST 109; BP_SYST 110; BP_SYST 121; BP_DIAS 69; BP_DIAS 72; BP_DIAS 74
[2020-01-15 16:32] VITALS: BP 117/75
[2020-01-15 18:41] LABS: CK-MB VALUE MASS 1.4 NG/ML (<3.6); MB/CK RELATIVE INDEX 2.12 (< OR =4); TROPONIN I 0.02 NG/ML (< 0.10)
[2020-01-15 20:00] VITALS: BP 117/74
[2020-01-15] MEDS: SENNA 8.6 MG TAB (SENOKOT) PO SCH (20:40)
[2020-01-15] MEDS: LATANOPROST 0.005% OPHTH SOLN 2.5 ML OU SCH (20:41)
--- NOTE | 2020-01-15 22:05 | ECGEPIP ---
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 Order Number: [id number] Reading MD: Abhi Oglesby Measurements Intervals [place] Rate: 79 P: 73 [place]: 152 QRS: -31 QRSD: 80 T: 10 QT: 371 QTc: 427 Interpretive Statements SINUS RHYTHM WITH OCCASIONAL SUPRAVENTRICULAR PREMATURE COMPLEXES LEFT AXIS DEVIATION, Borderline low Limb lead voltages, Poor R wave progression, PATTERN CONSISTENT WITH PULMONARY DISEASE MODERATE T-WAVE ABNORMALITY, CONSIDER ANTERIOR ISCHEMIA PACs new compared with 01/12/2020 Electronically Signed on 01-15-2020 22:05:25 EST by Abhi Oglesby
--- NOTE | 2020-01-15 22:33 | ECGEPIP ---
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
--- NOTE | 2020-01-15 23:18 | CR.PDOC ---
General Date of Consultation: Jan 15, 2020 Referring Provider: EUGENIE BOONE MD Attending Physician: PAULA CASTANO MD Consultation HOSPITALIST CONSULT REASON FOR CONSULTATION/CHIEF COMPLAINT: medical management in acute rehab HISTORY OF PRESENT ILLNESS: This is a 84-yo F in acute rehab, was recently discharged from the medical floor, hospitalized 01/09 - 01/14. Had come in for shortness of breath, melena diarrhea, orthopnea, PND, found to have a newly diagnosed grade 1 diastolic CHF that became compensated with diuresis. Also found to have a suspected upper GI bleed given acute on chronic anemia with acute blood loss with a drop in hemoglobin from 9.6 from her clinic record 1 month prior, to 7.4 on this hospitalization. She required 4 units of transfusion, after which she was stable. During this time, she also developed an NSTEMI type II, likely demand ischemia 2/2 severe anemia and acutely decompensated CHF, with new and persistent T-wave inversions in V1 through V3. She was asymptomatic. This was managed medically without any cardiac intervention, with troponins eventually downtrending. She was also found to have a newly diagnosed right lower extremity DVT, with IVC filter placed by Dr. Valencia. Also during stay, initially she was dizzy with positive orthostatics, which ultimately resolved with PT and OT. She is now continuing acute rehabilitation, and Hospitalist has been consulted for medical management. She is examined during therapy and has no complaints. Feels well. Denies any shortness of breath or chest pain or dizziness. ALLERGIES: Please see below. HOME MEDICATIONS: Please see below. PAST MEDICAL HISTORY: 1. Suspected upper GI bleed with recent blood transfusion 2. Chronic grade 1 diastolic CHF 3. Orthostatic hypotension 4. Right lower extremity DVT s/p IVC filter 5. NSTEMI type II 6. Depression 7. Hypertension 8. Parkinson's dementia PAST SURGICAL HISTORY: 1. Bilateral Cataracts 2. Tubal Ligation FAMILY HISTORY: Asked. Patient unsure - baseline dementia SOCIAL HISTORY: Lives alone in an apartment Tobacco use: None. ETOH: None Illicit drug use: None CODE STATUS: Full Code REVIEW OF SYSTEMS: Constitutional: Denies fever, chills Eyes: Denies eye pain, vision change ENT: Denies headaches, ear pain, dysphagia Skin: Denies any rashes or lesions Pulmonary: Denies dyspnea, cough, wheezing Cardiac: Denies chest pain, palpitations, lightheadedness GI: Denies nausea, vomiting, abdominal pain MSK: Denies any new pains or muscle aches Neurologic: Denies weakness or new numbness/tingling PHYSICAL EXAMINATION: VITAL SIGNS: Please see below. General: NAD, A&Ox3,sitting up comfortably, answers simple questions with baseline Parkinson's HEENT: NCAT, EOMI, anicteric sclera, MMM, no conjunctival pallor CV: RRR, no murmurs or clicks or rub. Trace LE edema b/l, no appreciable JVD RESP: equal chest rise, no accessory muscle use, no resp distress, on room air, clear lungs throughout ABD: soft, NT, nondistended. Normoactive bowel sounds, no masses. No rebound, guarding, rigidity EXTREMITIES: 2+ radial & dp pulses b/l, able to move all extremities NEURO: no focal deficits or acute changes LABORATORY DATA: Please see below. ASSESSMENT/PLAN: This is an 84-year-old female discharged from hospital to acute rehabilitation. She was hospitalized for newly-diagnosed decompensated diastolic CHF, NSTEMI type II, suspected upper GI bleed s/p 4units PRBC, newly diagnosed DVT s/p IVC filter. Hospitalist is following for medical management. 1. Generalized weakness and positive orthostatics-continue with therapy and rehabilitation 2. Suspected upper GI bleed with recent blood transfusions-H&H are stable david ent has no overt bleed. Monitor 2. Chronic grade 1 diastolic CHF-appears euvolemic. Continue diuretic with hold parameters and monitoring renal function 3. Right lower extremity DVT - s/p IVC filter 5. Recent NSTEMI type II -no cardiac complaints. Hemodynamically stable. Will require close outpatient follow-up with cardiology 6. Depression -stable. Continue home meds 7. Hypertension - controlled. Continue home meds 8. Parkinson's dementia - Continue home Sinemet. DVT ppx: ambulate in rehab DISPO: continue rehab. No changes made today. Thank you for involving us in this patient's care. We will follow along. Please call for any questions. Vital Signs/I&O Vital Signs Date Time Temp Pulse Resp B/P (MAP) Pulse Ox O2 Delivery O2 Flow Rate FiO2 01/15/20 20:00 97.6 97 19 117/74 (88) 97 Room Air Laboratory Data Labs 24H Laboratory Tests 2 01/15/20 06:36: Nucleated Red Blood Cells % (auto) 0.0 01/15/20 06:39: Anion Gap 5L, Glomerular Filtration Rate > 60.0, Calcium Level 8.0L, Total Bilirubin 0.6, Aspartate Amino Transf (AST/SGOT) 13, Alanine Aminotransferase (ALT/SGPT) 11L, Alkaline Phosphatase 88, Total Protein 5.7L, Albumin 1.9L, Albumin/Globulin Ratio 0.50L 01/15/20 17:51: Total Creatine Kinase 66, Creatine Kinase MB 1.4, Creatine Kinase MB Relative Index 2.12, Troponin I 0.02 CBC/BMP Laboratory Tests 01/15/20 06:36 01/15/20 06:39 Allergies Coded Allergies: codeine (Verified Adverse Reaction, Intermediate, N/V, 11/21/19) Home Medications Scheduled Carbidopa/Levodopa (Carbidopa-Levodopa 25-100 Tab) 1 Each Tablet, 1 TAB PO QID, (Reported) 0800/1200/1600/2000 Denosumab Injection (Prolia) 60 Mg/1 Ml Syringe, 60 MG SC ASDIRECTED, (Reported) EVERY 6 MONTHS, LAST RECEIVED IN FALL PER PT Ferrous Sulfate (Ferrous Sulfate) 325 Mg Tablet, 325 MG PO DAILY@1100 for 7 D ays, #7 Furosemide (Lasix) 20 Mg Tablet, 1 TAB PO DAILY for 30 Days, #30 Latanoprost (Xalatan) 0.005% 2.5ML Drops, 1 DROP OU QHS, (Reported) Metoprolol Succinate (Metoprolol Succinate) 25 Mg Tab, 12.5 MG PO DAILY, ( Reported) Pantoprazole Sodium (Pantoprazole Sodium) 40 Mg Tablet.dr, 40 MG PO DAILY for 7 Days, #7 Potassium Chloride (Potassium Chloride) 20 Meq Tab.er.prt, 20 MEQ PO DAILY for 7 Days, #7 Sertraline HCl (Sertraline HCl) 50 Mg Tab, 50 MG PO DAILY, (Reported) Sucralfate (Sucralfate) 1 Gm Tablet, 1 GM PO DAILY for 7 Days, #7 GME ATTESTATION GME ATTESTATION My faculty preceptor for this patient encounter was physically present during the encounter and was fully available. All aspects of the patient interview, examination, medical decision making process, and medical care plan development were reviewed and approved by the faculty preceptor. The faculty preceptor is aware and concurs with the plan as stated in the body of this note and will attest to such by his/her cosignature. REINALDO MCKEON DO Jan 15, 2020 23:17
[2020-01-16] VITALS (9 sets, daily range): BP systolic 107–128; BP diastolic 64–86
[2020-01-16] MEDS: ACETAMINOPHEN TAB 650MG DOSE (2X325MG) PO PRN (01:51)
[2020-01-16] MEDS: SERTRALINE HCL 50 MG TAB PO SCH (08:11)
[2020-01-16] MEDS: SUCRALFATE 1 GM TAB PO SCH ×4 (08:11→20:43)
[2020-01-16] MEDS: DOCUSATE SODIUM 100 MG CAP PO SCH ×2 (08:11→20:44)
[2020-01-16] MEDS: FUROSEMIDE 20 MG TAB PO SCH (08:11)
[2020-01-16] MEDS: PANTOPRAZOLE 40MG TAB (PROTONIX) PO SCH (08:11)
[2020-01-16] MEDS: SINEMET 25-100 MG TAB PO SCH ×4 (08:11→20:43)
[2020-01-16] MEDS: PYRIDOSTIGMINE 60 MG TAB PO SCH ×3 (08:13→20:43)
[2020-01-16] MEDS: REMEDY PHYTOPLEX Z-GUARD PASTE 113GM TUBE (FROM STOREROOM PRODUCT) TOP SCH ×3 (08:14→20:45)
--- NOTE | 2020-01-16 11:26 | ECGEPIP ---
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 Order Number: [id number] Reading MD: Abhi Oglesby Measurements Intervals [place] Rate: 95 P: 79 [place]: 144 QRS: -29 QRSD: 79 T: -6 QT: 339 QTc: 426 Interpretive Statements SINUS RHYTHM WITH FREQUENT SUPRAVENTRICULAR PREMATURE COMPLEXES POSSIBLE ANTERIOR MYOCARDIAL INFARCTION, OF INDETERMINATE AGE Left axis deviation. No significant change compared with 01/15/2020. Electronically Signed on 01-16-2020 11:25:51 EST by Abhi Oglesby
[2020-01-16] MEDS: FERROUS SULFATE 325MG TAB PO SCH (11:57)
[2020-01-16 12:56] LABS: CK-MB VALUE MASS 1.5 NG/ML (<3.6); CPK CREATINE PHOSPHOKINASE 25 U/L (26-192); TROPONIN I < 0.02 NG/ML (< 0.10)
[2020-01-16] MEDS ORDERED: GI COCKTAIL 50ML BTL(HYOSCYAMINE/MAALOX/LIDOCAINE VISCOUS)(1:3:1) PO ONE (19:15)
[2020-01-16 20:22] LABS: CK-MB VALUE MASS 1.1 NG/ML (<3.6); CPK CREATINE PHOSPHOKINASE 19 U/L (26-192); MB/CK RELATIVE INDEX 5.79 (< OR =4); TROPONIN I < 0.02 NG/ML (< 0.10)
[2020-01-16] MEDS: SENNA 8.6 MG TAB (SENOKOT) PO SCH (20:44)
[2020-01-17] MEDS: LATANOPROST 0.005% OPHTH SOLN 2.5 ML OU SCH ×2 (00:21→21:38)
[2020-01-17 06:15] VITALS: BP 112/68
[2020-01-17] MEDS: SINEMET 25-100 MG TAB PO SCH ×4 (08:42→21:38)
[2020-01-17] MEDS: FUROSEMIDE 20 MG TAB PO SCH (08:42)
[2020-01-17] MEDS: SERTRALINE HCL 50 MG TAB PO SCH (08:42)
[2020-01-17] MEDS: REMEDY PHYTOPLEX Z-GUARD PASTE 113GM TUBE (FROM STOREROOM PRODUCT) TOP SCH ×3 (08:42→21:42)
[2020-01-17] MEDS: PANTOPRAZOLE 40MG TAB (PROTONIX) PO SCH (08:42)
[2020-01-17] MEDS: DOCUSATE SODIUM 100 MG CAP PO SCH ×2 (08:42→21:38)
[2020-01-17] MEDS: PYRIDOSTIGMINE 60 MG TAB PO SCH ×3 (08:42→21:38)
[2020-01-17] MEDS: SUCRALFATE 1 GM TAB PO SCH ×4 (08:42→21:38)
[2020-01-17 09:00] LABS: HEMATOCRIT 33.5 % (36.0-47.0); HEMOGLOBIN 10.6 g/dl (12.0-15.5); MEAN CORPUSCULAR HEMOGLOBIN 23.4 pg (27.0-33.0); MEAN CORPUSCULAR HGB CONC 31.6 g/dl (32.0-36.5); PLATELET COUNT, AUTOMATED 272 10^3/uL (150-450); RED BLOOD COUNT 4.53 10^6/uL (4.00-5.40); WHITE BLOOD COUNT 9.9 10^3/uL (4.0-10.0)
[2020-01-17 09:24] LABS: BLOOD UREA NITROGEN 31 MG/DL (7-18); CALCIUM LEVEL 8.6 MG/DL (8.8-10.2); CARBON DIOXIDE LEVEL 26 MEQ/L (21-32); CHLORIDE LEVEL 100 MEQ/L (98-107); CREATININE FOR GFR 0.63 MG/DL (0.55-1.30); GLOMERULAR FILTRATION RATE > 60.0 (>32); GLUCOSE, FASTING 120 MG/DL (70-100); POTASSIUM SERUM 4.2 MEQ/L (3.5-5.1); SODIUM LEVEL 133 MEQ/L (136-145)
[2020-01-17] MEDS: MAALOX 30 ML SUSP *UDC PO PRN ×2 (12:31→22:11)
[2020-01-17 14:00] VITALS: BP 107/73
--- NOTE | 2020-01-17 14:59 | ECGEPIP ---
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 Order Number: [id number] Reading MD: Alex Chinchilla Measurements Intervals [place] Rate: 85 P: TN: 0 QRS: -28 QRSD: 86 T: 2 QT: 371 QTc: 444 Interpretive Statements normal sinus rhythm with isolated PAC. left axis deviation. Somewhat low voltages with slow precordial R wave progression, persistent S waves V5 and V6, and QS pattern III and aVF; body habitus versus pulmonary disease. Rule out prior septal versus inferior infarction. ST/T wave abnormalities. No change from 01/16/20. Electronically Signed on 01-17-2020 14:58:32 EST by Alex Chinchilla
[2020-01-17] MEDS: FERROUS SULFATE 325MG TAB PO SCH (16:34)
[2020-01-17 20:00] VITALS: BP 132/77
[2020-01-17] MEDS: SENNA 8.6 MG TAB (SENOKOT) PO SCH (21:38)
[2020-01-17 22:00] VITALS: BP_SYST 116; BP_SYST 126; BP_SYST 127; BP_DIAS 68; BP_DIAS 77; BP_DIAS 80
[2020-01-18 06:20] VITALS: BP_SYST 121; BP_SYST 143; BP_SYST 159; BP_DIAS 74; BP_DIAS 75; BP_DIAS 88
[2020-01-18] MEDS: SINEMET 25-100 MG TAB PO SCH ×4 (08:40→20:29)
[2020-01-18] MEDS: SUCRALFATE 1 GM TAB PO SCH ×4 (08:40→20:29)
[2020-01-18] MEDS: PYRIDOSTIGMINE 60 MG TAB PO SCH ×3 (08:40→20:29)
[2020-01-18] MEDS: DOCUSATE SODIUM 100 MG CAP PO SCH ×2 (08:40→20:29)
[2020-01-18] MEDS: PANTOPRAZOLE 40MG TAB (PROTONIX) PO SCH (08:41)
[2020-01-18] MEDS: FUROSEMIDE 20 MG TAB PO SCH (08:41)
[2020-01-18] MEDS: SERTRALINE HCL 50 MG TAB PO SCH (08:41)
[2020-01-18] MEDS: REMEDY PHYTOPLEX Z-GUARD PASTE 113GM TUBE (FROM STOREROOM PRODUCT) TOP SCH ×3 (08:41→20:30)
[2020-01-18] MEDS: FERROUS SULFATE 325MG TAB PO SCH (12:08)
[2020-01-18 14:00] VITALS: BP 115/71
[2020-01-18 20:00] VITALS: BP 126/67
[2020-01-18] MEDS: ACETAMINOPHEN TAB 650MG DOSE (2X325MG) PO PRN (20:29)
[2020-01-18] MEDS: SENNA 8.6 MG TAB (SENOKOT) PO SCH (20:29)
[2020-01-18] MEDS: LATANOPROST 0.005% OPHTH SOLN 2.5 ML OU SCH (20:30)
[2020-01-19 06:00] VITALS: BP 138/60
[2020-01-19 06:53] LABS: HEMATOCRIT 30.2 % (36.0-47.0); HEMOGLOBIN 9.7 g/dl (12.0-15.5); MEAN CORPUSCULAR HEMOGLOBIN 23.4 pg (27.0-33.0); MEAN CORPUSCULAR HGB CONC 32.1 g/dl (32.0-36.5); MEAN CORPUSCULAR VOLUME 72.8 fl (80.0-96.0); PLATELET COUNT, AUTOMATED 292 10^3/uL (150-450); RED BLOOD COUNT 4.15 10^6/uL (4.00-5.40); WHITE BLOOD COUNT 8.8 10^3/uL (4.0-10.0)
[2020-01-19 07:12] LABS: BLOOD UREA NITROGEN 19 MG/DL (7-18); CALCIUM LEVEL 8.8 MG/DL (8.8-10.2); CARBON DIOXIDE LEVEL 31 MEQ/L (21-32); CHLORIDE LEVEL 102 MEQ/L (98-107); CREATININE FOR GFR 0.62 MG/DL (0.55-1.30); GLOMERULAR FILTRATION RATE > 60.0 (>32); GLUCOSE, FASTING 79 MG/DL (70-100); POTASSIUM SERUM 3.7 MEQ/L (3.5-5.1); SODIUM LEVEL 134 MEQ/L (136-145)
[2020-01-19] MEDS: PANTOPRAZOLE 40MG TAB (PROTONIX) PO SCH (08:48)
[2020-01-19] MEDS: SINEMET 25-100 MG TAB PO SCH ×4 (08:48→20:03)
[2020-01-19] MEDS: DOCUSATE SODIUM 100 MG CAP PO SCH ×2 (08:48→20:03)
[2020-01-19] MEDS: PYRIDOSTIGMINE 60 MG TAB PO SCH ×3 (08:48→20:03)
[2020-01-19] MEDS: SUCRALFATE 1 GM TAB PO SCH ×4 (08:48→20:03)
[2020-01-19] MEDS: FUROSEMIDE 20 MG TAB PO SCH (08:49)
[2020-01-19] MEDS: REMEDY PHYTOPLEX Z-GUARD PASTE 113GM TUBE (FROM STOREROOM PRODUCT) TOP SCH ×3 (08:49→20:04)
[2020-01-19] MEDS: SERTRALINE HCL 50 MG TAB PO SCH (08:49)
[2020-01-19] MEDS: FERROUS SULFATE 325MG TAB PO SCH (12:26)
[2020-01-19 14:00] VITALS: BP 101/62
--- NOTE | 2020-01-19 14:47 | IPNPDOC ---
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 REVIEW OF SYSTEMS: The following is a completed review of systems and has been reviewed. Review of systems otherwise unremarkable. PAIN: Patient self reports no pain EYES: No recent vision changes EARS, NOSE, & THROAT: No throat pain, or dysphagia, or rhinorrhea CARDIOVASCULAR: Denies chest pain or palpitations PULMONARY: Denies shortness of breath GASTROINTESTINAL: Denies constipation/diarrhea GENITOURINARY: denies dysuria MUSCULOSKELETAL: +generalized weakness NEUROLOGICAL: +parkinson's HEMATOLOGICAL: +anemia SKIN: no rash PSYCHIATRIC: Unremarkable All other review of systems found to be negative. PHYSICAL EXAMINATION: VITAL SIGNS: Please see below. GENERAL: Pleasant and cooperative. No acute distress. HEENT: PERRL. Extraocular movements intact. Clear conjunctiva, nasal bridge ecchymosis CARDIOVASCULAR: Regular rate and rhythm. No murmurs, rubs, or gallops LUNGS: Clear to auscultation bilaterally. No wheezes. +scattered rhonchi ABDOMEN: Soft, nontender, nondistended. Positive bowel sounds. Normal active bowel sounds NEUROLOGICAL: Alert and oriented times three. Cranial nerves II through XII grossly intact. Sensation grossly intact EXTREMITIES: 4\5 strength bilateral upper extremities. 4\5 strength right lower extremity. 4/5 strength in left lower extremity. SKIN: no sacral erythema ASSESSMENT:84-year-old F with past medical history of parkinson's disease who presents status post GI bleed with acute CHF exacerbation and orthostatic hypotension PLAN: 1. Rehab- PT/OT advance gait and ADL training, dynamic balance training, fall recovery, strengthen/stretch/maintain ROM all 4 limbs 2. Neuro: hx of Parkinsons- c/u Sinemet -hx of dementia -orthostatic hypotension likely due to autonomic dysfunction in setting of parkinson's, c/u Mestinon 15mg TID and monitor-patient reporting her dizziness is getting better 3. cardiac: whx of HTN, given orthostatic will hold metoprolol and start Mestinon for BP support-medicine consulted to assist in management -grade 1 diastolic CHF- fluid restrict, daily weights, lasix -f/u cardiology for recent acute diastolic CHF exacerbation 4. Resp: monitor for infection, encourage incentive spirometry-will star duonebs and guaifenesin for rhonchi noted on exam 5. GI: hx of GI bleed with +FOBT, c/u protonix and sucralfate -f/u surgery for GI w/u 6. DVT ppx: -right LE DVT s/p IVC filter, AC contraindicated 7. : monitor PVRs 8. Pain: tylenol prn 9. Psych: ZOloft for depression 10. Dispo: tbd Allergies Coded Allergies: codeine (Verified Adverse Reaction, Intermediate, N/V, 11/21/19) Vital Signs Vital Signs Date Time Temp Pulse Resp B/P (MAP) Pulse Ox O2 Delivery O2 Flow Rate FiO2 01/19/20 14:00 98.1 87 18 101/62 (75) 98 Room Air Laboratory Data CBC/BMP Laboratory Tests 01/19/20 06:28 Labs 24H Laboratory Tests 2 01/19/20 06:28: Nucleated Red Blood Cells % (auto) 0.0, Anion Gap 1L, Glomerular Filtration Rate > 60.0, Calcium Level 8.8 Current Medications Current Medications Current Medications Medications (Trade) Dose Ordered Sig/Atiya Route PRN Reason Start Time Stop Time Status Last Admin Dose Admin Acetaminophen (Tylenol Tab) 650 mg Q4HP PRN PO fever/MILD PAIN (PS 1-4) 01/14/20 17:45 01/18/20 20:29 Al Hydrox/Mg Hydrox/Simethicone (Mylanta) 30 ml Q4HP PRN PO HEARTBURN 01/17/20 12:00 01/17/20 22:11 Carbidopa/Levodopa (Sinemet 25/100) 1 tab QID PO 01/15/20 09:00 01/19/20 12:26 Docusate Sodium (Colace) 100 mg BID PO 01/15/20 09:00 01/19/20 08:48 Ferrous Sulfate (Ferrous Sulfate) 325 mg DAILY@1100 PO 01/15/20 11:00 01/19/20 12:26 Furosemide (Lasix) 20 mg DAILY PO 01/15/20 09:00 01/19/20 08:49 Home Med (Med Rec Complete!) ASDIRECTED XX 01/14/20 22:00 01/14/20 22:06 DC Latanoprost (Xalatan 0.005% Op Soln) 1 drop QHS OU 01/15/20 21:00 2/23/20 20:30 Magnesium Hydroxide (Milk Of Magnesia) 30 ml DAILYPRN PRN PO CONSTIPATION 01/14/20 17:45 01/15/20 09:41 Pantoprazole Sodium (Protonix) 40 mg DAILY PO 01/15/20 09:00 01/19/20 08:48 Pyridostigmine [place] (Mestinon) 15 mg TID PO 01/14/20 21:00 01/19/20 08:48 Senna (Senokot) 1 tab QHS PO 01/14/20 21:00 01/18/20 20:29 Sertraline HCl (Zoloft) 50 mg DAILY PO 01/15/20 09:00 01/19/20 08:49 Sucralfate (Carafate) 1 gm ACHS PO 01/15/20 07:30 01/19/20 12:26 EUGENIE BOONE MD Jan 19, 2020 14:47
[2020-01-19] MEDS: IPRATROPIUM 0.5MG/ALBUTEROL 2.5MG INH SOL UD 3ML (DUONEB)(J7620) NEB SCH ×2 (15:56→19:41)
[2020-01-19] MEDS: guaiFENesin 200 MG TAB PO SCH ×2 (17:52→20:03)
[2020-01-19 20:00] VITALS: BP 118/67
[2020-01-19] MEDS: SENNA 8.6 MG TAB (SENOKOT) PO SCH (20:03)
[2020-01-19] MEDS: LATANOPROST 0.005% OPHTH SOLN 2.5 ML OU SCH (20:04)
[2020-01-20 06:00] VITALS: BP 138/68
[2020-01-20 06:28] VITALS: BP 157/77
[2020-01-20 06:31] VITALS: BP 137/87
[2020-01-20 06:34] VITALS: BP 132/75
[2020-01-20] MEDS: IPRATROPIUM 0.5MG/ALBUTEROL 2.5MG INH SOL UD 3ML (DUONEB)(J7620) NEB SCH ×3 (07:10→20:15)
[2020-01-20] MEDS: DOCUSATE SODIUM 100 MG CAP PO SCH ×2 (08:10→20:03)
[2020-01-20] MEDS: PYRIDOSTIGMINE 60 MG TAB PO SCH ×3 (08:10→20:04)
[2020-01-20] MEDS: guaiFENesin 200 MG TAB PO SCH ×3 (08:10→20:03)
[2020-01-20] MEDS: REMEDY PHYTOPLEX Z-GUARD PASTE 113GM TUBE (FROM STOREROOM PRODUCT) TOP SCH ×3 (08:11→20:04)
[2020-01-20] MEDS: SERTRALINE HCL 50 MG TAB PO SCH (08:11)
[2020-01-20] MEDS: SUCRALFATE 1 GM TAB PO SCH ×4 (08:11→20:03)
[2020-01-20] MEDS: FUROSEMIDE 20 MG TAB PO SCH (08:11)
[2020-01-20] MEDS: PANTOPRAZOLE 40MG TAB (PROTONIX) PO SCH (08:11)
[2020-01-20] MEDS: SINEMET 25-100 MG TAB PO SCH ×4 (08:11→20:03)
[2020-01-20] MEDS: FERROUS SULFATE 325MG TAB PO SCH (12:28)
[2020-01-20 14:00] VITALS: BP 101/58
--- NOTE | 2020-01-20 17:48 | IPNPDOC ---
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 REVIEW OF SYSTEMS: The following is a completed review of systems and has been reviewed. Review of systems otherwise unremarkable. PAIN: Patient self reports no pain EYES: No recent vision changes EARS, NOSE, & THROAT: No throat pain, or dysphagia, or rhinorrhea CARDIOVASCULAR: Denies chest pain or palpitations PULMONARY: Denies shortness of breath GASTROINTESTINAL: Denies constipation/diarrhea GENITOURINARY: denies dysuria MUSCULOSKELETAL: +generalized weakness NEUROLOGICAL: +parkinson's HEMATOLOGICAL: +anemia SKIN: no rash PSYCHIATRIC: Unremarkable All other review of systems found to be negative. PHYSICAL EXAMINATION: VITAL SIGNS: Please see below. GENERAL: Pleasant and cooperative. No acute distress. HEENT: PERRL. Extraocular movements intact. Clear conjunctiva, nasal bridge ecchymosis CARDIOVASCULAR: Regular rate and rhythm. No murmurs, rubs, or gallops LUNGS: Clear to auscultation bilaterally. No wheezes. no rhonchi ABDOMEN: Soft, nontender, nondistended. Positive bowel sounds. Normal active bowel sounds NEUROLOGICAL: Alert and oriented times three. Cranial nerves II through XII grossly intact. Sensation grossly intact EXTREMITIES: 4\5 strength bilateral upper extremities. 4\5 strength right lower extremity. 4/5 strength in left lower extremity. SKIN: no sacral erythema ASSESSMENT:84-year-old F with past medical history of parkinson's disease who presents status post GI bleed with acute CHF exacerbation and orthostatic hypotension PLAN: 1. Rehab- PT/OT advance gait and ADL training, dynamic balance training, fall recovery, strengthen/stretch/maintain ROM all 4 limbs 2. Neuro: hx of Parkinsons- c/u Sinemet -hx of dementia -orthostatic hypotension likely due to autonomic dysfunction in setting of parkinson's, c/u Mestinon 15mg TID and monitor-patient reporting her dizziness is getting better 3. cardiac: whx of HTN, given orthostatic c/u to hold metoprolol and c/u Mestinon for BP support-medicine consulted to assist in management -grade 1 diastolic CHF- fluid restrict, daily weights, lasix -f/u cardiology for recent acute diastolic CHF exacerbation 4. Resp: monitor for infection, encourage incentive spirometry-c/u duonebs and guaifenesin-rhonchi improved 5. GI: hx of GI bleed with +FOBT, c/u protonix and sucralfate -f/u surgery for GI w/u 6. DVT ppx: -right LE DVT s/p IVC filter, AC contraindicated 7. : monitor PVRs 8. Pain: tylenol prn 9. Psych: ZOloft for depression 10. Dispo: 01-27-20 to home, progressing towards goals Allergies Coded Allergies: codeine (Verified Adverse Reaction, Intermediate, N/V, 11/21/19) Vital Signs Vital Signs Date Time Temp Pulse Resp B/P (MAP) Pulse Ox O2 Delivery O2 Flow Rate FiO2 01/20/20 14:00 98.3 64 18 101/58 (72) 94 Room Air Laboratory Data Labs 24H Laboratory Tests 2 01/20/20 03:26: Urine Color YELLOW, Urine Appearance CLEAR, Urine pH 5.0, Urine Specific [place] 1.014, Urine Protein NEGATIVE, Urine Glucose (UA) NEGATIVE, Urine Ketones NEGATIVE, Urine Blood NEGATIVE, Urine Nitrite NEGATIVE, Urine Bilirubin NEGATIVE, Urine Urobilinogen 2.0H, Urine Leukocyte Esterase NEGATIVE, Urine WBC (Auto) 1, Urine RBC (Auto) 3, Urine Hyaline Casts (Auto) 0, Urine Bacteria (Auto) NEGATIVE, Urine Squamous Epithelial Cells 2, Urine Calcium Oxalate Cryst (Auto) SMALL, Urine Mucus (Auto) SMALL, Urine Sperm (Auto) Current Medications Current Medications Current Medications Medications (Trade) Dose Ordered Sig/Atiya Route PRN Reason Start Time Stop Time Status Last Admin Dose Admin Acetaminophen (Tylenol Tab) 650 mg Q4HP PRN PO fever/MILD PAIN (PS 1-4) 01/14/20 17:45 01/18/20 20:29 Al Hydrox/Mg Hydrox/Simethicone (Mylanta) 30 ml Q4HP PRN PO HEARTBURN 01/17/20 12:00 01/17/20 22:11 Albuterol/ Ipratropium (Duoneb (Ipr 0.5mg/Alb 2.5mg)) 3 ml RTID NEB 01/19/20 14:00 01/20/20 13:16 Carbidopa/Levodopa (Sinemet 25/100) 1 tab QID PO 01/15/20 09:00 01/20/20 17:00 Docusate Sodium (Colace) 100 mg BID PO 01/15/20 09:00 01/20/20 08:10 Ferrous Sulfate (Ferrous Sulfate) 325 mg DAILY@1100 PO 01/15/20 11:00 01/20/20 12:28 Furosemide (Lasix) 20 mg DAILY PO 01/15/20 09:00 01/20/20 08:11 Guaifenesin (Robitussin Tab) 400 mg TID PO 01/19/20 16:00 01/20/20 17:00 Home Med (Med Rec Complete!) ASDIRECTED XX 01/14/20 22:00 01/14/20 22:06 DC Latanoprost (Xalatan 0.005% Op Soln) 1 drop QHS OU 01/15/20 21:00 01/19/20 20:04 Magnesium Hydroxide (Milk Of Magnesia) 30 ml DAILYPRN PRN PO CONSTIPATION 01/14/20 17:45 01/15/20 09:41 Pantoprazole Sodium (Protonix) 40 mg DAILY PO 01/15/20 09:00 01/20/20 08:11 Pyridostigmine [place] (Mestinon) 15 mg TID PO 01/14/20 21:00 01/20/20 17:00 Senna (Senokot) 1 tab QHS PO 01/14/20 21:00 01/19/20 20:03 Sertraline HCl (Zoloft) 50 mg DAILY PO 01/15/20 09:00 01/20/20 08:11 Sucralfate (Carafate) 1 gm ACHS PO 01/15/20 07:30 01/20/20 17:00 EUGENIE BOONE MD Jan 20, 2020 17:48
[2020-01-20 20:00] VITALS: BP 135/74
[2020-01-20] MEDS: SENNA 8.6 MG TAB (SENOKOT) PO SCH (20:03)
[2020-01-20] MEDS: LATANOPROST 0.005% OPHTH SOLN 2.5 ML OU SCH (20:04)
[2020-01-21 06:00] VITALS: BP 139/78
[2020-01-21 06:13] VITALS: BP 139/78
[2020-01-21 06:16] VITALS: BP 144/96
[2020-01-21 06:19] VITALS: BP 122/80
[2020-01-21 06:46] LABS: HEMATOCRIT 33.2 % (36.0-47.0); HEMOGLOBIN 10.3 g/dl (12.0-15.5); MEAN CORPUSCULAR HEMOGLOBIN 22.6 pg (27.0-33.0); MEAN CORPUSCULAR VOLUME 72.8 fl (80.0-96.0); PLATELET COUNT, AUTOMATED 344 10^3/uL (150-450); RED BLOOD COUNT 4.56 10^6/uL (4.00-5.40); WHITE BLOOD COUNT 7.9 10^3/uL (4.0-10.0)
[2020-01-21 07:07] LABS: BLOOD UREA NITROGEN 15 MG/DL (7-18); CARBON DIOXIDE LEVEL 30 MEQ/L (21-32); CHLORIDE LEVEL 101 MEQ/L (98-107); CREATININE FOR GFR 0.56 MG/DL (0.55-1.30); GLOMERULAR FILTRATION RATE > 60.0 (>32); GLUCOSE, FASTING 89 MG/DL (70-100); POTASSIUM SERUM 3.7 MEQ/L (3.5-5.1); SODIUM LEVEL 135 MEQ/L (136-145)
[2020-01-21] MEDS: IPRATROPIUM 0.5MG/ALBUTEROL 2.5MG INH SOL UD 3ML (DUONEB)(J7620) NEB SCH ×3 (07:23→20:00)
[2020-01-21] MEDS: PYRIDOSTIGMINE 60 MG TAB PO SCH ×3 (08:44→20:14)
[2020-01-21] MEDS: DOCUSATE SODIUM 100 MG CAP PO SCH ×3 (08:44→20:13)
[2020-01-21] MEDS: FUROSEMIDE 20 MG TAB PO SCH (08:44)
[2020-01-21] MEDS: PANTOPRAZOLE 40MG TAB (PROTONIX) PO SCH (08:44)
[2020-01-21] MEDS: guaiFENesin 200 MG TAB PO SCH ×3 (08:44→20:14)
[2020-01-21] MEDS: SINEMET 25-100 MG TAB PO SCH ×4 (08:44→20:13)
[2020-01-21] MEDS: SUCRALFATE 1 GM TAB PO SCH ×4 (08:44→20:13)
[2020-01-21] MEDS: SERTRALINE HCL 50 MG TAB PO SCH (08:44)
[2020-01-21] MEDS: REMEDY PHYTOPLEX Z-GUARD PASTE 113GM TUBE (FROM STOREROOM PRODUCT) TOP SCH ×3 (08:45→21:00)
[2020-01-21] MEDS: FERROUS SULFATE 325MG TAB PO SCH (11:52)
[2020-01-21 14:00] VITALS: BP 109/75
[2020-01-21] MEDS ORDERED: FUROSEMIDE 40 MG TAB PO ONE (14:30)
--- NOTE | 2020-01-21 15:33 | IPNPDOC ---
PM&R Progress Note DATE OF SERVICE: Jan 21, 2020 [employer] Progress Note Subjective: Patient reporting she feels constipated, but denies feeling short of breath or dizzy. REVIEW OF SYSTEMS: The following is a completed review of systems and has been reviewed. Review of systems otherwise unremarkable. PAIN: Patient self reports no pain EYES: No recent vision changes EARS, NOSE, & THROAT: No throat pain, or dysphagia, or rhinorrhea CARDIOVASCULAR: Denies chest pain or palpitations PULMONARY: Denies shortness of breath GASTROINTESTINAL:+ constipation GENITOURINARY: denies dysuria MUSCULOSKELETAL: +generalized weakness NEUROLOGICAL: +parkinson's HEMATOLOGICAL: +anemia SKIN: no rash PSYCHIATRIC: Unremarkable All other review of systems found to be negative. PHYSICAL EXAMINATION: VITAL SIGNS: Please see below. GENERAL: Pleasant and cooperative. No acute distress. HEENT: PERRL. Extraocular movements intact. Clear conjunctiva, nasal bridge ecchymosis CARDIOVASCULAR: Regular rate and rhythm. No murmurs, rubs, or gallops LUNGS: +bibasilar crackles ABDOMEN: Soft, nontender, nondistended. Positive bowel sounds. Normal active bowel sounds NEUROLOGICAL: Alert and oriented times three. Cranial nerves II through XII grossly intact. Sensation grossly intact EXTREMITIES: 4\5 strength bilateral upper extremities. 4\5 strength right lower extremity. 4/5 strength in left lower extremity. +Bilat LE edema SKIN: no sacral erythema ASSESSMENT:84-year-old F with past medical history of parkinson's disease who presents status post GI bleed with acute CHF exacerbation and orthostatic hypotension PLAN: 1. Rehab- PT/OT advance gait and ADL training, dynamic balance training, fall recovery, strengthen/stretch/maintain ROM all 4 limbs 2. Neuro: hx of Parkinsons- c/u Sinemet -hx of dementia -orthostatic hypotension likely due to autonomic dysfunction in setting of parkinson's, c/u Mestinon 15mg TID and monitor-resolved 3. cardiac: hx of HTN, given orthostatic c/u to hold metoprolol and c/u Mestinon for BP support-medicine consulted to assist in management -grade 1 diastolic CHF- fluid restrict, daily weights, patient with worsening LE edema on today's exam and bibasilar crackles- she does not appear short of breath, will increase Lasix to 40 BID -f/u cardiology for recent acute diastolic CHF exacerbation 4. Resp: monitor for infection, encourage incentive spirometry-c/u duonebs and guaifenesin-rhonchi improved 5. GI: hx of GI bleed with +FOBT, c/u protonix and sucralfate -f/u surgery for GI w/u 6. DVT ppx: -right LE DVT s/p IVC filter, AC contraindicated 7. : monitor PVRs 8. Pain: tylenol prn 9. Psych: ZOloft for depression 10. Dispo: 01-27-20 to home, progressing towards goals Allergies Coded Allergies: codeine (Verified Adverse Reaction, Intermediate, N/V, 11/21/19) Vital Signs Vital Signs Date Time Temp Pulse Resp B/P (MAP) Pulse Ox O2 Delivery O2 Flow Rate FiO2 01/21/20 06:19 106 122/80 (94) 01/21/20 06:00 97.4 18 94 Room Air Laboratory Data CBC/BMP Laboratory Tests 01/21/20 06:30 Labs 24H Laboratory Tests 2 01/21/20 06:30: Nucleated Red Blood Cells % (auto) 0.4H, Anion Gap 4L, Glomerular Filtration Ra te > 60.0, Calcium Level 9.0 Current Medications Current Medications Current Medications Medications (Trade) Dose Ordered Sig/Atiya Route PRN Reason Start Time Stop Time Status Last Admin Dose Admin Acetaminophen (Tylenol Tab) 650 mg Q4HP PRN PO fever/MILD PAIN (PS 1-4) 01/14/20 17:45 01/18/20 20:29 Al Hydrox/Mg Hydrox/Simethicone (Mylanta) 30 ml Q4HP PRN PO HEARTBURN 01/17/20 12:00 01/17/20 22:11 Albuterol/ Ipratropium (Duoneb (Ipr 0.5mg/Alb 2.5mg)) 3 ml RTID NEB 01/19/20 14:00 01/21/20 14:27 Carbidopa/Levodopa (Sinemet 25/100) 1 tab QID PO 01/15/20 09:00 01/21/20 12:20 Docusate Sodium (Colace) 100 mg BID PO 01/15/20 09:00 01/21/20 08:44 Ferrous Sulfate (Ferrous Sulfate) 325 mg DAILY@1100 PO 01/15/20 11:00 01/21/20 11:52 Furosemide (Lasix) 20 mg DAILY PO 01/15/20 09:00 01/21/20 14:22 DC 01/21/20 08:44 Furosemide (Lasix) 40 mg BID@,17 PO 01/22/20 09:00 Furosemide (Lasix) 40 mg DAILY PO 01/22/20 09:00 01/21/20 14:27 DC Guaifenesin (Robitussin Tab) 400 mg TID PO 01/19/20 16:00 01/21/20 08:44 Home Med (Med Rec Complete!) ASDIRECTED XX 01/14/20 22:00 01/14/20 22:06 DC Latanoprost (Xalatan 0.005% Op Soln) 1 drop QHS OU 01/15/20 21:00 01/20/20 20:04 Magnesium Hydroxide (Milk Of Magnesia) 30 ml DAILYPRN PRN PO CONSTIPATION 01/14/20 17:45 01/15/20 09:41 Pantoprazole Sodium (Protonix) 40 mg DAILY PO 01/15/20 09:00 01/21/20 08:44 Pyridostigmine [place] (Mestinon) 15 mg TID PO 01/14/20 21:00 01/21/20 08:44 Senna (Senokot) 1 tab QHS PO 01/14/20 21:00 01/20/20 20:03 Sertraline HCl (Zoloft) 50 mg DAILY PO 01/15/20 09:00 01/21/20 08:44 Sucralfate (Carafate) 1 gm ACHS PO 01/15/20 07:30 01/21/20 11:52 EUGENIE BOONE MD Jan 21, 2020 15:33
[2020-01-21] MEDS: BISACODYL 10 MG SUPP PR SCH (20:14)
[2020-01-21] MEDS: SENNA 8.6 MG TAB (SENOKOT) PO SCH (20:14)
[2020-01-21] MEDS: LATANOPROST 0.005% OPHTH SOLN 2.5 ML OU SCH (20:15)
[2020-01-21 21:13] VITALS: BP 103/64
[2020-01-22 05:46] VITALS: BP 123/65
[2020-01-22] MEDS: IPRATROPIUM 0.5MG/ALBUTEROL 2.5MG INH SOL UD 3ML (DUONEB)(J7620) NEB SCH ×2 (06:16→20:00)
[2020-01-22] MEDS: SUCRALFATE 1 GM TAB PO SCH ×4 (08:46→21:39)
[2020-01-22] MEDS: FUROSEMIDE 40 MG TAB PO SCH ×2 (08:47→16:22)
[2020-01-22] MEDS: SERTRALINE HCL 50 MG TAB PO SCH (08:51)
[2020-01-22] MEDS: PANTOPRAZOLE 40MG TAB (PROTONIX) PO SCH (08:51)
[2020-01-22] MEDS: guaiFENesin 200 MG TAB PO SCH ×3 (08:51→21:40)
[2020-01-22] MEDS: DOCUSATE SODIUM 100 MG CAP PO SCH ×3 (08:51→21:39)
[2020-01-22] MEDS: SINEMET 25-100 MG TAB PO SCH ×4 (08:51→21:40)
[2020-01-22] MEDS: PYRIDOSTIGMINE 60 MG TAB PO SCH ×3 (08:52→21:39)
[2020-01-22] MEDS: REMEDY PHYTOPLEX Z-GUARD PASTE 113GM TUBE (FROM STOREROOM PRODUCT) TOP SCH ×3 (08:53→21:40)
[2020-01-22] MEDS ORDERED: FUROSEMIDE 20 MG TAB PO SCH (09:00)
[2020-01-22] MEDS: FERROUS SULFATE 325MG TAB PO SCH (11:23)
--- NOTE | 2020-01-22 12:24 | IPNPDOC ---
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 REVIEW OF SYSTEMS: The following is a completed review of systems and has been reviewed. Review of systems otherwise unremarkable. PAIN: Patient self reports no pain EYES: No recent vision changes EARS, NOSE, & THROAT: No throat pain, or dysphagia, or rhinorrhea CARDIOVASCULAR: Denies chest pain or palpitations PULMONARY: Denies shortness of breath GASTROINTESTINAL:+ constipation (improved) GENITOURINARY: denies dysuria MUSCULOSKELETAL: +generalized weakness NEUROLOGICAL: +Parkinson's HEMATOLOGICAL: +anemia SKIN: no rash PSYCHIATRIC: Unremarkable All other review of systems found to be negative. PHYSICAL EXAMINATION: VITAL SIGNS: Please see below. GENERAL: Pleasant and cooperative. No acute distress. HEENT: PERRL. Extraocular movements intact. Clear conjunctiva, nasal bridge ecchymosis CARDIOVASCULAR: Regular rate and rhythm. No murmurs, rubs, or gallops LUNGS: +bibasilar crackles ABDOMEN: Soft, nontender, nondistended. Positive bowel sounds. Normal active bowel sounds NEUROLOGICAL: Alert and oriented times three. Cranial nerves II through XII grossly intact. Sensation grossly intact EXTREMITIES: 4\5 strength bilateral upper extremities. 4\5 strength right lower extremity. 4/5 strength in left lower extremity. +Bilat LE edema (improving) SKIN: no sacral erythema ASSESSMENT:84-year-old F with past medical history of parkinson's disease who presents status post GI bleed with acute CHF exacerbation and orthostatic hypotension PLAN: 1. Rehab- PT/OT advance gait and ADL training, dynamic balance training, fall recovery, strengthen/stretch/maintain ROM all 4 limbs 2. Neuro: hx of Parkinsons- c/u Sinemet -hx of dementia -orthostatic hypotension likely due to autonomic dysfunction in setting of Parkinson's, c/u Mestinon 15mg TID and monitor-resolved 3. cardiac: hx of HTN, given orthostatic c/u to hold metoprolol and c/u Mestinon for BP support-medicine consulted to assist in management -grade 1 diastolic CHF- fluid restrict, daily weights, c/u Lasix 40BID, lungs CTA today and LE swelling slightly improved -f/u cardiology for recent acute diastolic CHF exacerbation 4. Resp: monitor for infection, encourage incentive spirometry-c/u duonebs and guaifenesin-rhonchi improved 5. GI: hx of GI bleed with +FOBT, c/u protonix and sucralfate -f/u surgery for GI w/u 6. DVT ppx: -right LE DVT s/p IVC filter, AC contraindicated 7. : monitor PVRs 8. Pain: tylenol prn 9. Psych: ZOloft for depression 10. Dispo: 01-27-20 to home, progressing towards goals Allergies Coded Allergies: codeine (Verified Adverse Reaction, Intermediate, N/V, 11/21/19) Vital Signs Vital Signs Date Time Temp Pulse Resp B/P (MAP) Pulse Ox O2 Delivery O2 Flow Rate FiO2 01/22/20 05:46 97.4 68 18 123/65 (84) 93 Room Air Current Medications Current Medications Current Medications Medications (Trade) Dose Ordered Sig/Atiya Route PRN Reason Start Time Stop Time Status Last Admin Dose Admin Acetaminophen (Tylenol Tab) 650 mg Q4HP PRN PO fever/MILD PAIN (PS 1-4) 01/14/20 17:45 01/18/20 20:29 Al Hydrox/Mg Hydrox/Simethicone (Mylanta) 30 ml Q4HP PRN PO HEARTBURN 01/17/20 12:00 01/17/20 22:11 Albuterol/ Ipratropium (Duoneb (Ipr 0.5mg/Alb 2.5mg)) 3 ml RTID NEB 01/19/20 14:00 01/22/20 06:16 Bisacodyl (Dulcolax Suppository) 10 mg DAILY@1999 [place] 01/21/20 20:00 01/21/20 20:14 Carbidopa/Levodopa (Sinemet 25/100) 1 tab QID PO 01/15/20 09:00 01/22/20 08:51 Docusate Sodium (Colace) 100 mg BID PO 01/15/20 09:00 01/21/20 15:36 DC 01/21/20 08:44 Docusate Sodium (Colace) 200 mg TID PO 01/21/20 16:00 01/22/20 08:51 Ferrous Sulfate (Ferrous Sulfate) 325 mg DAILY@1100 PO 01/15/20 11:00 01/22/20 11:23 Furosemide (Lasix) 20 mg DAILY PO 01/15/20 09:00 01/21/20 14:22 DC 01/21/20 08:44 Furosemide (Lasix) 40 mg BID@, PO 01/22/20 09:00 01/22/20 08:47 Furosemide (Lasix) 40 mg DAILY PO 01/22/20 09:00 01/21/20 14:27 DC Guaifenesin (Robitussin Tab) 400 mg TID PO 01/19/20 16:00 01/22/20 08:51 Home Med (Med Rec Complete!) ASDIRECTED XX 01/14/20 22:00 01/14/20 22:06 DC Latanoprost (Xalatan 0.005% Op Soln) 1 drop QHS OU 01/15/20 21:00 01/21/20 20:15 Magnesium Hydroxide (Milk Of Magnesia) 30 ml DAILYPRN PRN PO CONSTIPATION 01/14/20 17:45 01/15/20 09:41 Pantoprazole Sodium (Protonix) 40 mg DAILY PO 01/15/20 09:00 01/22/20 08:51 Pyridostigmine [place] (Mestinon) 15 mg TID PO 01/14/20 21:00 01/22/20 08:52 Senna (Senokot) 1 tab QHS PO 01/14/20 21:00 01/21/20 20:14 Sertraline HCl (Zoloft) 50 mg DAILY PO 01/15/20 09:00 01/22/20 08:51 Sucralfate (Carafate) 1 gm ACHS PO 01/15/20 07:30 01/22/20 08:46 EUGENIE BOONE MD Jan 22, 2020 12:24
[2020-01-22 14:00] VITALS: BP 148/69
[2020-01-22] MEDS: BISACODYL 10 MG SUPP PR SCH (21:37)
[2020-01-22] MEDS: SENNA 8.6 MG TAB (SENOKOT) PO SCH (21:39)
[2020-01-22 21:40] VITALS: BP 109/74
[2020-01-22] MEDS: LATANOPROST 0.005% OPHTH SOLN 2.5 ML OU SCH (21:40)
[2020-01-23 05:41] VITALS: BP 116/58
[2020-01-23] MEDS: IPRATROPIUM 0.5MG/ALBUTEROL 2.5MG INH SOL UD 3ML (DUONEB)(J7620) NEB SCH ×3 (07:37→19:20)
[2020-01-23 08:49] LABS: HEMATOCRIT 33.4 % (36.0-47.0); HEMOGLOBIN 10.2 g/dl (12.0-15.5); MEAN CORPUSCULAR HEMOGLOBIN 22.4 pg (27.0-33.0); MEAN CORPUSCULAR HGB CONC 30.5 g/dl (32.0-36.5); MEAN CORPUSCULAR VOLUME 73.4 fl (80.0-96.0); PLATELET COUNT, AUTOMATED 318 10^3/uL (150-450); RED BLOOD COUNT 4.55 10^6/uL (4.00-5.40); WHITE BLOOD COUNT 11.6 10^3/uL (4.0-10.0)
[2020-01-23] MEDS: DOCUSATE SODIUM 100 MG CAP PO SCH ×3 (09:00→19:52)
[2020-01-23] MEDS: REMEDY PHYTOPLEX Z-GUARD PASTE 113GM TUBE (FROM STOREROOM PRODUCT) TOP SCH ×3 (09:00→19:52)
[2020-01-23] MEDS: FUROSEMIDE 40 MG TAB PO SCH (09:09)
[2020-01-23] MEDS: PANTOPRAZOLE 40MG TAB (PROTONIX) PO SCH (09:09)
[2020-01-23] MEDS: SINEMET 25-100 MG TAB PO SCH ×4 (09:09→19:52)
[2020-01-23] MEDS: guaiFENesin 200 MG TAB PO SCH ×3 (09:09→19:52)
[2020-01-23] MEDS: SUCRALFATE 1 GM TAB PO SCH ×4 (09:09→19:52)
[2020-01-23] MEDS: SERTRALINE HCL 50 MG TAB PO SCH (09:09)
[2020-01-23] MEDS: PYRIDOSTIGMINE 60 MG TAB PO SCH ×3 (09:10→19:51)
[2020-01-23 09:15] LABS: BLOOD UREA NITROGEN 16 MG/DL (7-18); CALCIUM LEVEL 8.6 MG/DL (8.8-10.2); CARBON DIOXIDE LEVEL 30 MEQ/L (21-32); CHLORIDE LEVEL 97 MEQ/L (98-107); CREATININE FOR GFR 0.74 MG/DL (0.55-1.30); GLOMERULAR FILTRATION RATE > 60.0 (>32); GLUCOSE, FASTING 148 MG/DL (70-100); SODIUM LEVEL 136 MEQ/L (136-145)
[2020-01-23] MEDS ORDERED: POTASSIUM CHLORIDE 10 MEQ SR TABLET PO ONE (11:15)
--- NOTE | 2020-01-23 11:58 | IPNPDOC ---
PM&R Progress Note DATE OF SERVICE: Jan 23, 2020 Food Scientist Progress Note Subjective: Patient seen this morning in PT stating she feels well and denies difficulty urinating, but does have a runny nose. REVIEW OF SYSTEMS: The following is a completed review of systems and has been reviewed. Review of systems otherwise unremarkable. PAIN: Patient self reports no pain EYES: No recent vision changes EARS, NOSE, & THROAT: No throat pain, or dysphagia, or rhinorrhea CARDIOVASCULAR: Denies chest pain or palpitations PULMONARY: Denies shortness of breath GASTROINTESTINAL:+ constipation (improved) GENITOURINARY: denies dysuria MUSCULOSKELETAL: +generalized weakness NEUROLOGICAL: +Parkinson's HEMATOLOGICAL: +anemia SKIN: no rash PSYCHIATRIC: Unremarkable All other review of systems found to be negative. PHYSICAL EXAMINATION: VITAL SIGNS: Please see below. GENERAL: Pleasant and cooperative. No acute distress. HEENT: PERRL. Extraocular movements intact. Clear conjunctiva, nasal bridge ecchymosis CARDIOVASCULAR: Regular rate and rhythm. No murmurs, rubs, or gallops LUNGS: CTA ABDOMEN: Soft, nontender, nondistended. Positive bowel sounds. Normal active bowel sounds NEUROLOGICAL: Alert and oriented times three. Cranial nerves II through XII grossly intact. Sensation grossly intact EXTREMITIES: 4\5 strength bilateral upper extremities. 4\5 strength right lower extremity. 4/5 strength in left lower extremity. +Bilat LE edema (improving) SKIN: no sacral erythema ASSESSMENT:84-year-old F with past medical history of parkinson's disease who presents status post GI bleed with acute CHF exacerbation and orthostatic hypotension PLAN: 1. Rehab- PT/OT advance gait and ADL training, dynamic balance training, fall recovery, strengthen/stretch/maintain ROM all 4 limbs 2. Neuro: hx of Parkinsons- c/u Sinemet -hx of dementia -orthostatic hypotension likely due to autonomic dysfunction in setting of Parkinson's, c/u Mestinon 15mg TID and monitor-resolved 3. cardiac: hx of HTN, given orthostatic c/u to hold metoprolol and c/u Mestinon for BP support-medicine consulted to assist in management -grade 1 diastolic CHF- fluid restrict, daily weights, c/u Lasix will decrease to 40mg daily, lungs CTA today and LE swelling slightly improved -f/u cardiology for recent acute diastolic CHF exacerbation 4. Resp: monitor for infection, encourage incentive spirometry-c/u duonebs and guaifenesin-rhonchi improved -Resp panel ordered today given mild leukocytosis and rhinorrhea 5. GI: hx of GI bleed with +FOBT, c/u protonix and sucralfate -f/u surgery for GI w/u 6. DVT ppx: -right LE DVT s/p IVC filter, AC contraindicated 7. : monitor PVRs 8. Pain: tylenol prn 9. Psych: ZOloft for depression 10. Hypokalemia- will replete, lasix dose decreased down to 40 daily 11. Dispo: 01-27-20 to home, progressing towards goals Allergies Coded Allergies: codeine (Verified Adverse Reaction, Intermediate, N/V, 11/21/19) Vital Signs Vital Signs Date Time Temp Pulse Resp B/P (MAP) Pulse Ox O2 Delivery O2 Flow Rate FiO2 01/23/20 05:41 97.3 74 18 116/58 (77) 92 Room Air Laboratory Data CBC/BMP Laboratory Tests 01/23/20 08:20 Labs 24H Laboratory Tests 2 01/22/20 20:14: Bedside Glucose (Misc Panel) 120H 01/23/20 08:20: Nucleated Red Blood Cells % (auto) 0.3H, Anion Gap 9, Glomerular Filtration Rate > 60.0, Calcium Level 8.6L Current Medications Current Medications Current Medications Medications (Trade) Dose Ordered Sig/Atiya Route PRN Reason Start Time Stop Time Status Last Admin Dose Admin Acetaminophen (Tylenol Tab) 650 mg Q4HP PRN PO fever/MILD PAIN (PS 1-4) 01/14/20 17:45 01/18/20 20:29 Al Hydrox/Mg Hydrox/Simethicone (Mylanta) 30 ml Q4HP PRN PO HEARTBURN 01/17/20 12:00 01/17/20 22:11 Albuterol/ Ipratropium (Duoneb (Ipr 0.5mg/Alb 2.5mg)) 3 ml RTID NEB 01/19/20 14:00 01/23/20 07:37 Bisacodyl (Dulcolax Suppository) 10 mg DAILY@1999 MS 01/21/20 20:00 01/21/20 20:14 Carbidopa/Levodopa (Sinemet 25/100) 1 tab QID PO 01/15/20 09:00 01/23/20 09:09 Docusate Sodium (Colace) 100 mg BID PO 01/15/20 09:00 01/21/20 15:36 DC 01/21/20 08:44 Docusate Sodium (Colace) 200 mg TID PO 01/21/20 16:00 01/22/20 21:39 Ferrous Sulfate (Ferrous Sulfate) 325 mg DAILY@1100 PO 01/15/20 11:00 01/22/20 11:23 Furosemide (Lasix) 20 mg DAILY PO 01/15/20 09:00 01/21/20 14:22 DC 01/21/20 08:44 Furosemide (Lasix) 40 mg BID@09,17 PO 01/22/20 09:00 01/23/20 11:08 DC 01/23/20 09:09 Furosemide (Lasix) 40 mg DAILY PO 01/22/20 09:00 01/21/20 14:27 DC Furosemide (Lasix) 40 mg DAILY PO 01/24/20 09:00 Guaifenesin (Robitussin Tab) 400 mg TID PO 01/19/20 16:00 01/23/20 09:09 Home Med (Med Rec Complete!) ASDIRECTED XX 01/14/20 22:00 01/14/20 22:06 DC Latanoprost (Xalatan 0.005% Op Soln) 1 drop QHS OU 01/15/20 21:00 01/22/20 21:40 Magnesium Hydroxide (Milk Of Magnesia) 30 ml DAILYPRN PRN PO CONSTIPATION 01/14/20 17:45 01/15/20 09:41 Pantoprazole Sodium (Protonix) 40 mg DAILY PO 01/15/20 09:00 01/23/20 09:09 Pyridostigmine [place] (Mestinon) 15 mg TID PO 01/14/20 21:00 01/23/20 09:10 Senna (Senokot) 1 tab QHS PO 01/14/20 21:00 01/22/20 21:39 Sertraline HCl (Zoloft) 50 mg DAILY PO 01/15/20 09:00 01/23/20 09:09 Sucralfate (Carafate) 1 gm ACHS PO 01/15/20 07:30 01/23/20 09:09 EUGENIE BOONE MD Jan 23, 2020 11:58
[2020-01-23] MEDS: FERROUS SULFATE 325MG TAB PO SCH (12:16)
[2020-01-23 14:00] VITALS: BP 138/78
[2020-01-23 19:43] VITALS: BP 116/74
[2020-01-23] MEDS: SENNA 8.6 MG TAB (SENOKOT) PO SCH (19:51)
[2020-01-23] MEDS: LATANOPROST 0.005% OPHTH SOLN 2.5 ML OU SCH (19:52)
[2020-01-23] MEDS: BISACODYL 10 MG SUPP PR SCH (19:53)
[2020-01-24 06:00] VITALS: BP 127/79
[2020-01-24] MEDS: SUCRALFATE 1 GM TAB PO SCH ×4 (07:30→21:12)
[2020-01-24] MEDS: IPRATROPIUM 0.5MG/ALBUTEROL 2.5MG INH SOL UD 3ML (DUONEB)(J7620) NEB SCH ×3 (07:36→20:33)
[2020-01-24 08:12] LABS: BLOOD UREA NITROGEN 16 MG/DL (7-18); CALCIUM LEVEL 8.5 MG/DL (8.8-10.2); CARBON DIOXIDE LEVEL 32 MEQ/L (21-32); CHLORIDE LEVEL 100 MEQ/L (98-107); CREATININE FOR GFR 0.48 MG/DL (0.55-1.30); GLOMERULAR FILTRATION RATE > 60.0 (>32); GLUCOSE, FASTING 76 MG/DL (70-100); POTASSIUM SERUM 3.4 MEQ/L (3.5-5.1); SODIUM LEVEL 138 MEQ/L (136-145)
[2020-01-24] MEDS: DOCUSATE SODIUM 100 MG CAP PO SCH ×3 (09:47→21:12)
[2020-01-24] MEDS: guaiFENesin 200 MG TAB PO SCH ×3 (09:47→21:12)
[2020-01-24] MEDS: FUROSEMIDE 40 MG TAB PO SCH (09:47)
[2020-01-24] MEDS: PANTOPRAZOLE 40MG TAB (PROTONIX) PO SCH (09:47)
[2020-01-24] MEDS: FERROUS SULFATE 325MG TAB PO SCH (09:47)
[2020-01-24] MEDS: SERTRALINE HCL 50 MG TAB PO SCH (09:47)
[2020-01-24] MEDS: PYRIDOSTIGMINE 60 MG TAB PO SCH ×3 (09:48→21:12)
[2020-01-24] MEDS: SINEMET 25-100 MG TAB PO SCH ×4 (09:48→21:12)
[2020-01-24] MEDS: REMEDY PHYTOPLEX Z-GUARD PASTE 113GM TUBE (FROM STOREROOM PRODUCT) TOP SCH ×3 (09:51→21:00)
[2020-01-24] MEDS ORDERED: POTASSIUM CHLORIDE 10 MEQ SR TABLET PO ONE (12:00)
[2020-01-24 13:59] VITALS: BP 116/70
[2020-01-24 20:00] VITALS: BP 126/76
[2020-01-24] MEDS: BISACODYL 10 MG SUPP PR SCH (21:12)
[2020-01-24] MEDS: LATANOPROST 0.005% OPHTH SOLN 2.5 ML OU SCH (21:13)
[2020-01-24] MEDS: SENNA 8.6 MG TAB (SENOKOT) PO SCH (21:14)
[2020-01-25 06:00] VITALS: BP 125/76
[2020-01-25] MEDS: SUCRALFATE 1 GM TAB PO SCH ×4 (07:11→20:43)
[2020-01-25] MEDS: IPRATROPIUM 0.5MG/ALBUTEROL 2.5MG INH SOL UD 3ML (DUONEB)(J7620) NEB SCH ×3 (07:28→20:10)
[2020-01-25] MEDS: REMEDY PHYTOPLEX Z-GUARD PASTE 113GM TUBE (FROM STOREROOM PRODUCT) TOP SCH ×3 (09:00→20:44)
[2020-01-25] MEDS: guaiFENesin 200 MG TAB PO SCH ×3 (09:05→20:43)
[2020-01-25] MEDS: FUROSEMIDE 40 MG TAB PO SCH (09:05)
[2020-01-25] MEDS: PANTOPRAZOLE 40MG TAB (PROTONIX) PO SCH (09:05)
[2020-01-25] MEDS: SERTRALINE HCL 50 MG TAB PO SCH (09:05)
[2020-01-25] MEDS: DOCUSATE SODIUM 100 MG CAP PO SCH ×3 (09:05→20:43)
[2020-01-25] MEDS: PYRIDOSTIGMINE 60 MG TAB PO SCH ×3 (09:05→20:43)
[2020-01-25] MEDS: SINEMET 25-100 MG TAB PO SCH ×4 (09:05→20:43)
[2020-01-25] MEDS: FERROUS SULFATE 325MG TAB PO SCH (10:53)
[2020-01-25 13:48] VITALS: BP 145/81
[2020-01-25 20:00] VITALS: BP 112/65
[2020-01-25] MEDS: BISACODYL 10 MG SUPP PR SCH (20:00)
[2020-01-25] MEDS: SENNA 8.6 MG TAB (SENOKOT) PO SCH (20:41)
[2020-01-25] MEDS: LATANOPROST 0.005% OPHTH SOLN 2.5 ML OU SCH (20:44)
[2020-01-26 06:00] VITALS: BP 143/87
[2020-01-26] MEDS: SUCRALFATE 1 GM TAB PO SCH ×4 (07:57→20:39)
[2020-01-26] MEDS: guaiFENesin 200 MG TAB PO SCH ×3 (07:58→20:39)
[2020-01-26] MEDS: FUROSEMIDE 40 MG TAB PO SCH (07:58)
[2020-01-26] MEDS: SINEMET 25-100 MG TAB PO SCH ×4 (07:58→20:40)
[2020-01-26] MEDS: PANTOPRAZOLE 40MG TAB (PROTONIX) PO SCH (08:00)
[2020-01-26] MEDS: SERTRALINE HCL 50 MG TAB PO SCH (08:00)
[2020-01-26] MEDS: PYRIDOSTIGMINE 60 MG TAB PO SCH ×3 (08:00→20:39)
[2020-01-26] MEDS: IPRATROPIUM 0.5MG/ALBUTEROL 2.5MG INH SOL UD 3ML (DUONEB)(J7620) NEB SCH ×3 (08:07→20:52)
[2020-01-26] MEDS: REMEDY PHYTOPLEX Z-GUARD PASTE 113GM TUBE (FROM STOREROOM PRODUCT) TOP SCH ×3 (08:11→20:41)
[2020-01-26] MEDS: DOCUSATE SODIUM 100 MG CAP PO SCH ×3 (08:11→20:39)
[2020-01-26] MEDS ORDERED: SERT50TA29 PO (10:46)
[2020-01-26] MEDS ORDERED: FERR325T18 PO (10:46)
[2020-01-26] MEDS ORDERED: PANT40TA3 PO (10:46)
[2020-01-26] MEDS ORDERED: FURO40TA2 PO (10:46)
[2020-01-26] MEDS ORDERED: CARB25TA9 PO (10:46)
[2020-01-26] MEDS ORDERED: MEST60TA PO (10:46)
[2020-01-26] MEDS ORDERED: SUCR1TA PO (10:46)
[2020-01-26] MEDS: FERROUS SULFATE 325MG TAB PO SCH (12:47)
[2020-01-26 12:57] LABS: BASO # 0.1 10^3/uL (0.0-0.2); BASO % 0.4 % (0.0-1.0); EOS # 0.1 10^3/uL (0.0-0.5); EOS % 0.7 % (0.0-3.0); HEMATOCRIT 30.8 % (36.0-47.0); HEMOGLOBIN 9.7 g/dl (12.0-15.5); LYMPH # 2.3 10^3/uL (1.5-5.0); LYMPH % 20.3 % (24.0-44.0); MEAN CORPUSCULAR HEMOGLOBIN 22.9 pg (27.0-33.0); MEAN CORPUSCULAR HGB CONC 31.5 g/dl (32.0-36.5); MEAN CORPUSCULAR VOLUME 72.8 fl (80.0-96.0); MONO # 0.7 10^3/uL (0.0-0.8); MONO % 5.7 % (0.0-5.0); NEUTROPHILS % 70.2 % (36.0-66.0); PLATELET COUNT, AUTOMATED 311 10^3/uL (150-450); RED BLOOD COUNT 4.23 10^6/uL (4.00-5.40); WHITE BLOOD COUNT 11.4 10^3/uL (4.0-10.0)
[2020-01-26 13:17] LABS: BLOOD UREA NITROGEN 21 MG/DL (7-18); CARBON DIOXIDE LEVEL 30 MEQ/L (21-32); CHLORIDE LEVEL 98 MEQ/L (98-107); CREATININE FOR GFR 0.62 MG/DL (0.55-1.30); GLOMERULAR FILTRATION RATE > 60.0 (>32); GLUCOSE, FASTING 94 MG/DL (70-100); POTASSIUM SERUM 3.7 MEQ/L (3.5-5.1); SODIUM LEVEL 134 MEQ/L (136-145)
[2020-01-26 14:00] VITALS: BP 106/67
--- NOTE | 2020-01-26 14:50 | IPNPDOC ---
PM&R Progress Note Underpresser Hand Progress Note DATE OF ADMISSION: Jan 14, 2020 at 20:55 INPATIENT REHABILITATION ADMISSION DAY: # SUBJECTIVE: Patient is a -year-old with . ALLERGIES: See Below MEDICATIONS: Reviewed, see below. OBJECTIVE: VITAL SIGNS: Please see below. PHYSICAL EXAMINATION: GENERAL: [Cachectic, well developed, sitting up in bed, no acute distress]. HEENT: [Normocephalic, atraumatic]. [No facial droop]. [Poor dentition, missing teeth. PERRL, EOMI]. CARDIOVASCULAR: [S1, S2, irregular rate]. [No lower limb edema or calf tenderness]. LUNGS: [Decreased breath sounds, coarse throughout]. ABDOMEN: [Soft, nontender, nondistended. Normoactive bowel sounds throughout]. MUSCULOSKELETAL: MMT: /5 strength proximally bilateral shoulder abduction, forward flexion and bilateral hip flexion. /5 strength bilateral elbow flexion, knee flexion, /5 bilateral elbow extension and knee extension. /5 slabber light, dorsiflexion, plantar flexion. NEUROLOGICAL: [Alert and oriented times three]. [Answers all question appropriately]. SKIN: . LABORATORY DATA: Reviewed. Please see below. MICROBIOLOGY: Please see below. IMAGING: ASSESSMENT AND PLAN: 1. . 2. . 3. . TIME SPENT: Chart Review, examination and documentation minutes. Allergies Coded Allergies: codeine (Verified Adverse Reaction, Intermediate, N/V, 11/21/19) Vital Signs Vital Signs Date Time Temp Pulse Resp B/P (MAP) Pulse Ox O2 Delivery O2 Flow Rate FiO2 01/26/20 14:00 98.0 87 20 106/67 (80) 96 Room Air Laboratory Data CBC/BMP Laboratory Tests 01/26/20 12:33 Labs 24H Laboratory Tests 2 01/26/20 12:33: Immature Granulocyte % (Auto) 2.7, Neutrophils (%) (Auto) 70.2H, Lymphocytes (%) (Auto) 20.3L, Monocytes (%) (Auto) 5.7H, Eosinophils (%) (Auto) 0.7, Basophils (%) (Auto) 0.4, Neutrophils # (Auto) 8.0, Lymphocytes # (Auto) 2.3, Monocytes # (Auto) 0.7, Eosinophils # (Auto) 0.1, Basophils # (Auto) 0.1, Nucleated Red Blood Cells % (auto) 0.3H, Anion Gap 6L, Glomerular Filtration Rate > 60.0, Calcium Level 9.0 Microbiology Microbiology 01/23/20 Respiratory Virus Panel (PCR) ([facility]) - Final, Complete Current Medications Current Medications Current Medications Medications (Trade) Dose Ordered Sig/Atiya Route PRN Reason Start Time Stop Time Status Last Admin Dose Admin Acetaminophen (Tylenol Tab) 650 mg Q4HP PRN PO fever/MILD PAIN (PS 1-4) 01/14/20 17:45 01/18/20 20:29 Al Hydrox/Mg Hydrox/Simethicone (Mylanta) 30 ml Q4HP PRN PO HEARTBURN 01/17/20 12:00 01/17/20 22:11 Albuterol/ Ipratropium (Duoneb (Ipr 0.5mg/Alb 2.5mg)) 3 ml RTID NEB 01/19/20 14:00 01/26/20 08:07 Bisacodyl (Dulcolax Suppository) 10 mg DAILY@2000 NC 01/21/20 20:00 01/24/20 21:12 Carbidopa/Levodopa (Sinemet 25/100) 1 tab QID PO 01/15/20 09:00 01/26/20 12:47 Docusate Sodium (Colace) 100 mg BID PO 01/15/20 09:00 01/21/20 15:36 DC 01/21/20 08:44 Docusate Sodium (Colace) 200 mg TID PO 01/21/20 16:00 01/25/20 20:43 Ferrous Sulfate (Ferrous Sulfate) 325 mg DAILY@1100 PO 01/15/20 11:00 01/26/20 12:47 Furosemide (Lasix) 20 mg DAILY PO 01/15/20 09:00 01/21/20 14:22 DC 01/21/20 08:44 Furosemide (Lasix) 40 mg BID@17 PO 01/22/20 09:00 01/23/20 11:08 DC 01/23/20 09:09 Furosemide (Lasix) 40 mg DAILY PO 01/22/20 09:00 01/21/20 14:27 DC Furosemide (Lasix) 40 mg DAILY PO 01/24/20 09:00 01/26/20 07:58 Guaifenesin (Robitussin Tab) 400 mg TID PO 01/19/20 16:00 01/26/20 07:58 Home Med (Med Rec Complete!) ASDIRECTED XX 01/14/20 22:00 01/14/20 22:06 DC Latanoprost (Xalatan 0.005% Op Soln) 1 drop QHS OU 01/15/20 21:00 01/25/20 20:44 Magnesium Hydroxide (Milk Of Magnesia) 30 ml DAILYPRN PRN PO CONSTIPATION 01/14/20 17:45 01/15/20 09:41 Pantoprazole Sodium (Protonix) 40 mg DAILY PO 01/15/20 09:00 01/26/20 08:00 Pyridostigmine [place] (Mestinon) 15 mg TID PO 01/14/20 21:00 01/26/20 08:00 Senna (Senokot) 1 tab QHS PO 01/14/20 21:00 01/24/20 21:14 Sertraline HCl (Zoloft) 50 mg DAILY PO 01/15/20 09:00 01/26/20 08:00 Sucralfate (Carafate) 1 gm ACHS PO 01/15/20 07:30 01/26/20 12:47 EUGENIE BOONE MD Jan 26, 2020 14:50
[2020-01-26] MEDS: BISACODYL 10 MG SUPP PR SCH (20:00)
[2020-01-26] MEDS: LATANOPROST 0.005% OPHTH SOLN 2.5 ML OU SCH (20:40)
[2020-01-26] MEDS: SENNA 8.6 MG TAB (SENOKOT) PO SCH (20:41)
[2020-01-26 20:50] VITALS: BP 109/65
[2020-01-27 06:00] VITALS: BP 143/83
[2020-01-27] MEDS: IPRATROPIUM 0.5MG/ALBUTEROL 2.5MG INH SOL UD 3ML (DUONEB)(J7620) NEB SCH ×2 (07:36→14:00)
[2020-01-27] MEDS: PYRIDOSTIGMINE 60 MG TAB PO SCH (08:53)
[2020-01-27] MEDS: SINEMET 25-100 MG TAB PO SCH ×2 (08:53→11:56)
[2020-01-27] MEDS: FUROSEMIDE 40 MG TAB PO SCH (08:54)
[2020-01-27] MEDS: PANTOPRAZOLE 40MG TAB (PROTONIX) PO SCH (08:54)
[2020-01-27] MEDS: DOCUSATE SODIUM 100 MG CAP PO SCH (08:54)
[2020-01-27] MEDS: guaiFENesin 200 MG TAB PO SCH (08:54)
[2020-01-27] MEDS: SUCRALFATE 1 GM TAB PO SCH ×2 (08:54→11:56)
[2020-01-27] MEDS: SERTRALINE HCL 50 MG TAB PO SCH (08:54)
[2020-01-27] MEDS: REMEDY PHYTOPLEX Z-GUARD PASTE 113GM TUBE (FROM STOREROOM PRODUCT) TOP SCH (08:55)
[2020-01-27] MEDS: FERROUS SULFATE 325MG TAB PO SCH (11:56)
[2020-01-27 14:00] VITALS: BP 124/74
== END 2020-01-27 14:30 | disposition home health service (06) | DRG 56 ==
LOC: M ED INP 20:55 → M MS4PR 22:15 → M PM&R 22:17
PROVIDERS: ADMIT Physical Medicine & Rehabilitation; ATTEND Physical Medicine & Rehabilitation
DX: G20 Parkinson's disease (principal); I21.A1 Myocardial infarction type 2; I50.32 Chronic diastolic (congestive) heart failure; I82.431 Acute embolism and thrombosis of right popliteal vein; D64.9 Anemia, unspecified; I11.0 Hypertensive heart disease with heart failure; F03.90 Unspecified dementia, unspecified severity, without behavioral disturbance, psychotic disturbance, mood disturbance, and anxiety; G90.3 Multi-system degeneration of the autonomic nervous system; F32.9 Major depressive disorder, single episode, unspecified; R53.1 Weakness; R26.89 Other abnormalities of gait and mobility; K59.00 Constipation, unspecified; E87.6 Hypokalemia; Z88.5 Allergy status to narcotic agent; Z79.899 Other long term (current) drug therapy; Z98.41 Cataract extraction status, right eye; Z95.828 Presence of other vascular implants and grafts; Z98.42 Cataract extraction status, left eye

== ENCOUNTER 2020-02-21 03:42 | Inpatient (IN) | payer MEDICARE ==
[2020-02-21] VITALS (18 sets, daily range): BP systolic 121–148; BP diastolic 65–94
[~2020-02-21] VITALS: Ht 154.9 cm; Wt 60.9 kg
[~2020-02-21 03:42] MED LIST changes: +FURO40TA2 PO; +MEST60TA PO
[2020-02-21] MEDS ORDERED: TETANUS/DIPHTHERIA TOX ADSORB ADULT 0.5ML SYR/VIAL (90714) IM ONE (04:15)
[2020-02-21] MEDS ORDERED: SUCR1TAB56 PO (04:29)
[2020-02-21] MEDS ORDERED: SERT50TA29 PO (04:29)
[2020-02-21] MEDS ORDERED: FERR1TAB8 PO (04:29)
[2020-02-21] MEDS ORDERED: PANT-23 PO (04:29)
[2020-02-21] MEDS ORDERED: FURO40TA2 PO (04:29)
[2020-02-21] MEDS ORDERED: CALCTAB41 PO (04:34)
[2020-02-21] MEDS ORDERED: ANUS25SU PR (04:34)
[2020-02-21] MEDS ORDERED: MULTCAP PO (04:34)
[2020-02-21] MEDS ORDERED: ACET-683 PO (04:34)
[2020-02-21] MEDS ORDERED: KLOR20TA42 PO (04:34)
--- NOTE | 2020-02-21 04:50 | REPVR ---
PROCEDURE INFORMATION: Exam: CT Head Without Contrast Exam date and time: 02/21/2020 4:05 AM Age: 84 years old Clinical indication: Injury or trauma; Fall; Initial encounter; Concussion / head injury; Consciousness not specified; Additional info: [facility] TECHNIQUE: Imaging protocol: Computed tomography of the head without contrast. Radiation optimization: All CT scans at this facility use at least one of these dose optimization techniques: automated exposure control; mA and/or kV adjustment per patient size (includes targeted exams where dose is matched to clinical indication); or iterative reconstruction. COMPARISON: CT Head without contrast 01/10/2020 8:04 PM FINDINGS: Brain: There is extensive patchy periventricular and subcortical white matter hypoattenuation with no associated mass effect. Ventricles: There is marked cerebral atrophy with secondary ventricular dilatation. Bones/joints: There is mild right parietal soft tissue swelling with no underlying skull fracture. Sinuses: There is mild mucosal thickening in the left sphenoid sinus. Mastoid air cells: Visualized mastoid air cells are well aerated. Soft tissues: Unremarkable. IMPRESSION: 1. Mild right parietal soft tissue swelling with no underlying skull fracture, intracranial hemorrhage, mass effect or midline shift. 2. Age-related cerebral atrophy with extensive chronic microangiopathic changes. 3. Mild left sphenoid sinus mucoperiosteal thickening. Electronically signed by: Shen Doty On 02/21/2020 04:49:25 AM
--- NOTE | 2020-02-21 04:52 | REPVR ---
PROCEDURE INFORMATION: Exam: CT Cervical Spine Without Contrast Exam date and time: 02/21/2020 4:05 AM Age: 84 years old Clinical indication: Neck pain; Additional info: Traum TECHNIQUE: Imaging protocol: Computed tomography images of the cervical spine without contrast. Radiation optimization: All CT scans at this facility use at least one of these dose optimization techniques: automated exposure control; mA and/or kV adjustment per patient size (includes targeted exams where dose is matched to clinical indication); or iterative reconstruction. COMPARISON: CT Spine,cervical w/o contrast 08/29/2017 10:09 PM FINDINGS: Vertebrae: There is atlanto dens productive changes. Discs/Spinal canal/Neural foramina: There is significant C6-C7 disc degenerative changes. There is posterior cervical spine dural calcification most pronounced at C4-C5, unchanged since the prior exam. Other bones/joints: There is diffuse bony osteopenia. Prevertebral Space: The prevertebral soft tissues are within normal limits. Soft tissues: Unremarkable. Lungs: There is right apical linear atelectasis versus scar. IMPRESSION: No CT evidence of traumatic cervical spine injury. Electronically signed by: Shen Doty On 02/21/2020 04:52:28 AM
--- NOTE | 2020-02-21 05:01 | REPVR ---
PROCEDURE INFORMATION: Exam: CT Chest Without Contrast Exam date and time: 02/21/2020 4:05 AM Age: 84 years old Clinical indication: Chest pain; Type not specified; Additional info: Traum TECHNIQUE: Imaging protocol: Computed tomography of the chest without contrast. 3D rendering: MIP and/or 3D reconstructed images were created by the technologist. Radiation optimization: All CT scans at this facility use at least one of these dose optimization techniques: automated exposure control; mA and/or kV adjustment per patient size (includes targeted exams where dose is matched to clinical indication); or iterative reconstruction. COMPARISON: [facility] PORTABLE CHEST X-RAY 01/09/2020 1:01 PM FINDINGS: Lungs: There is a 3 mm left lower lobe pleural base nodule on axial image 78, unchanged since 2017. There is bilateral posterior dependent and bibasilar atelectatic changes. There is right upper lobe linear atelectasis. There are some right middle lobe atelectatic changes. There is cortical irregularity and linear lucency in the anterior aspect of the right clavicle best seen on axial images 37 and 38 and coronal images 9-14. Pleural space: Unremarkable. No pneumothorax. No pleural effusion. Heart: There is cardiomegaly. There is a small pericardial effusion. There is severe coronary vascular calcifications. Mediastinum: There is a small sliding hiatal hernia. Aorta: Unremarkable. No aortic aneurysm. Lymph nodes: Unremarkable. No enlarged lymph nodes. Bones/joints: Multiple old anterior right-sided rib fracture seen. There is deformity of the inferior aspect of the sternum/xiphoid with some callus formation. Soft tissues: Unremarkable. IMPRESSION: 1. Right lateral clavicular cortical irregularity with subtle linear lucency. It is not clear if this is artifactual or subtle fracture, age indeterminate. Correlate with point tenderness. 2. Otherwise there is no gross CT evidence of traumatic chest injury. 3. Old inferior sternum/xiphoid fracture in addition to multiple anterior right-sided rib fractures. 4. Low lung volume with atelectatic changes in the tendon portions and lung bases possibly with a background of mild peripheral chronic interstitial changes. Electronically signed by: Shen Doty On 02/21/2020 05:01:57 AM
--- NOTE | 2020-02-21 05:11 | REPVR ---
PROCEDURE INFORMATION: Exam: CT Pelvis Without Contrast Exam date and time: 02/21/2020 4:05 AM Age: 84 years old Clinical indication: Injury or trauma; Fall; Initial encounter; Blunt trauma (contusions or hematomas); Right; Hip; Additional info: Traum TECHNIQUE: Imaging protocol: Computed tomography images of the pelvis without contrast. Radiation optimization: All CT scans at this facility use at least one of these dose optimization techniques: automated exposure control; mA and/or kV adjustment per patient size (includes targeted exams where dose is matched to clinical indication); or iterative reconstruction. COMPARISON: CT ABD PELVIS W/O CONTRAST 08/29/2017 10:16 PM FINDINGS: Stomach and bowel: There is large amount of right and transverse colonic stool. There is massive distention of the descending and rectosigmoid colon with large amount of air and large amount of stool in the rectum with apparent thickening of the rectum. Appendix: No evidence of appendicitis. Intraperitoneal space: Unremarkable. No free air. No significant fluid collection. Vasculature: There is moderate to severe iliac mural calcifications. Lymph nodes: Unremarkable. No enlarged lymph nodes. Bladder: The urinary bladder is nondistended limiting its evaluation. Reproductive: Normal as visualized. Bones/joints: There is comminuted right intertrochanteric fracture with some displacement of the lesser trochanter. There is L4-L5 and L5-S1 disc degenerative changes with facet arthrosis. There is diffuse bony osteopenia. Soft tissues: There is a small left inguinal fat containing hernia. Bilateral posterior dependent decubitus changes seen overlying the ischial bones. IMPRESSION: 1. Right hip intertrochanteric comminuted fracture with angulation and mild displacement of the lesser trochanter. 2. Massive distention of the descending and rectosigmoid colon with air in addition to large amount of stool in the rectum which demonstrate wall thickening. Underlying proctitis or anorectal pathology cannot be excluded. Correlate clinically. Electronically signed by: Shen Doty On 02/21/2020 05:10:44 AM
[2020-02-21 05:13] LABS: BASO % 0.2 % (0.0-1.0); EOS % 0.1 % (0.0-3.0); HEMATOCRIT 36.4 % (36.0-47.0); HEMOGLOBIN 11.1 g/dl (12.0-15.5); LYMPH # 1.4 10^3/uL (1.5-5.0); LYMPH % 7.4 % (24.0-44.0); MEAN CORPUSCULAR HEMOGLOBIN 21.4 pg (27.0-33.0); MEAN CORPUSCULAR HGB CONC 30.5 g/dl (32.0-36.5); MEAN CORPUSCULAR VOLUME 70.1 fl (80.0-96.0); MONO # 0.9 10^3/uL (0.0-0.8); NEUTROPHILS # 16.1 10^3/uL (1.5-8.5); PLATELET COUNT, AUTOMATED 337 10^3/uL (150-450); RED BLOOD COUNT 5.19 10^6/uL (4.00-5.40); WHITE BLOOD COUNT 18.7 10^3/uL (4.0-10.0)
--- NOTE | 2020-02-21 05:16 | REPVR ---
PROCEDURE INFORMATION: Exam: CT Right Lower Extremity Without Contrast, Hip Exam date and time: 02/21/2020 4:05 AM Age: 84 years old Clinical indication: Pain; Hip; Right; Additional info: [facility] TECHNIQUE: Imaging protocol: CT of the Right lower extremity without contrast was performed. Exam focused on the hip. Radiation optimization: All CT scans at this facility use at least one of these dose optimization techniques: automated exposure control; mA and/or kV adjustment per patient size (includes targeted exams where dose is matched to clinical indication); or iterative reconstruction. COMPARISON: CT ABD PELVIS W/O CONTRAST 08/29/2017 10:16 PM FINDINGS: Bones/joints: There is comminuted right intertrochanteric hip fracture extending and involving the lesser trochanter. Soft tissues: Normal. IMPRESSION: Comminuted right hip intertrochanteric fracture extending to and involving the lesser trochanter which is approximately 1 cm medially displaced. Electronically signed by: Shen Doty On 02/21/2020 05:15:46 AM
[2020-02-21 05:24] LABS: BLOOD UREA NITROGEN 28 MG/DL (7-18); CREATININE FOR GFR 0.77 MG/DL (0.55-1.30); GLUCOSE, FASTING 136 MG/DL (70-100)
[2020-02-21 05:25] LABS: CALCIUM LEVEL 9.8 MG/DL (8.8-10.2); CARBON DIOXIDE LEVEL 30 MEQ/L (21-32); CHLORIDE LEVEL 101 MEQ/L (98-107); GLOMERULAR FILTRATION RATE > 60.0 (>32); POTASSIUM SERUM 4.5 MEQ/L (3.5-5.1); SODIUM LEVEL 137 MEQ/L (136-145)
[2020-02-21 05:30] LABS: INR 1.13; PROTHROMBIN TIME 14.2 SECONDS (11.8-14.0)
--- NOTE | 2020-02-21 05:30 | REPVR ---
PROCEDURE INFORMATION: Exam: CT Abdomen Without Contrast Exam date and time: 02/21/2020 4:18 AM Age: 84 years old Clinical indication: Other: Dilated bowel loops; Additional info: Traum TECHNIQUE: Imaging protocol: Computed tomography images of the abdomen without contrast. Radiation optimization: All CT scans at this facility use at least one of these dose optimization techniques: automated exposure control; mA and/or kV adjustment per patient size (includes targeted exams where dose is matched to clinical indication); or iterative reconstruction. COMPARISON: CT ABD PELVIS W/O CONTRAST 08/29/2017 10:16 PM FINDINGS: Lungs: There are bibasilar atelectatic lung changes probably with minimal peripheral sub pleural chronic interstitial changes. Heart: The heart is enlarged. Liver: Normal. No mass. Gallbladder and bile ducts: Large gallstones are seen the largest measuring 2.3 centimetres. Pancreas: Normal. No ductal dilation. Spleen: Normal. No splenomegaly. Adrenals: Normal. No mass. Kidneys and ureters: Normal. No hydronephrosis. Stomach and bowel: There is large amount of right colonic stool burden. There is significant gaseous distention of the descending and rectosigmoid colon which are redundant. Intraperitoneal space: Unremarkable. No free air. No significant fluid collection. Lymph nodes: Unremarkable. No enlarged lymph nodes. Vasculature: There is severe aortic and iliac mural calcifications. Bones/joints: IVC filter is seen with its proximal end at L1-L2. There is diffuse bony osteopenia. Soft tissues: Unremarkable. IMPRESSION: 1. No CT evidence of traumatic abdominal injuries. 2. Large gallstones with no CT evidence of cholecystitis. 3. Large amount of right colonic stool and massive distention of the descending and rectosigmoid colon with large amount of air and apparent thickening of the rectal wall. Underlying proctitis or pain rectal pathology including stricture among others cannot be completely excluded. Correlate with clinical history and physical exam. 4. IVC filter with its tip at L1-L2. Electronically signed by: Shen Doty On 02/21/2020 05:29:50 AM
[2020-02-21 05:31] LABS: PARTIAL THROMBOPLASTIN TIME 40.3 SECONDS (25.0-38.4)
[2020-02-21] MEDS ORDERED: MAALOX 30 ML SUSP *UDC PO PRN (06:00)
[2020-02-21] MEDS ORDERED: MOM 30ML SUSPENSION UDC PO PRN (06:00)
[2020-02-21] MEDS ORDERED: ceFAZolin SOD 2 GM in IV 1 EA IV SCH (06:00)
[2020-02-21] MEDS: HEPARIN SOD (PORCINE) 5000 UNITS/ML VIAL (J1644 PER 1000UNITS) SC SCH ×2 (06:29→13:55)
--- NOTE | 2020-02-21 06:34 | HPEPDOC ---
General Date of Admission Feb 21, 2020 at 05:55 Date of Service: Feb 21, 2020 Chief Complaint The patient is a 84-year-old female admitted with a reason for visit of Hip Fracture. Source: Patient, EMS notes reviewed, snf records, Old records Exam Limitations: Dementia Timing/Duration: 1-3 hours Associated Symptoms: Mechanical fall History of Present Illness 84-year-old female with past medical history of chronic anemia, hypertension, Parkinson's dementia, depression presents to the ER for mechanical fall. Upon evaluation, patient noted to have right intertrochanteric hip fracture that is displaced medially. Majority of history is obtained through EMS notes and intermediate records as patient is demented and does not recall the events of tonight. As per intermediate records, patient was found to have a fall and hit her head. She was noted to have a small scalp laceration and was unable to be removed after her fall. At that time, patient was noted to have severe right- sided hip pain and therefore EMS was called for further evaluation. Patient currently denies any headaches, chills, fevers, shortness of breath, chest pain. She does state that her hip does hurt and that she has some pain in her stomach. She cannot quantify the degree of pain or when it started. Labwork reveals a leukocytosis with left shift, stable hemoglobin levels, unremarkable chemistry. Patient to be admitted to hospital service for likely orthopedic intervention. Son was contacted who agrees that if patient needs surgery, they would be okay doing so. Patient's son is noted as a healthcare proxy. Home Medications Scheduled Calcium Carbonate/Vitamin D3 (Calcium 500-Vit D3 400 Tablet) 1 Each Tablet, 1 TAB PO DAILY, (Reported) Carbidopa/Levodopa (Carbidopa-Levodopa 25-100 Tab) 1 Each Tablet, 1 TAB PO QID, (Reported) 0800/1200/1600/2000 Denosumab Injection (Prolia) 60 Mg/1 Ml Syringe, 60 MG SC ASDIRECTED, (Reported) EVERY 6 MONTHS Ferrous Sulfate (Ferrous Sulfate) 325 Mg Tablet, 325 MG PO DAILY, (Reported) Furosemide (Furosemide) 40 Mg Tablet, 40 MG PO DAILY, (Reported) 0900 Latanoprost (Xalatan) 0.005% 2.5ML Drops, 1 DROP OU QHS, (Reported) Multivitamin (Multivitamins) 1 Each Capsule, 1 CAP PO DAILY, (Reported) Pantoprazole Sodium (Pantoprazole Sodium) 40 Mg Tablet.dr, 40 MG PO DAILY, (Reported) 0900 Potassium Chloride (Klor-Con M20) 20 Meq Tab.er.prt, 20 MEQ PO BID, (Reported) Sertraline HCl (Sertraline HCl) 50 Mg Tablet, 50 MG PO QHS, (Reported) Sucralfate (Sucralfate) 1 Gm Tablet, 1 GM PO ACHS, (Reported) Scheduled PRN Acetaminophen (Acetaminophen) 500 Mg Tablet, 1,000 MG PO Q6H PRN for PAIN, (Reported) Hydrocortisone Acetate (Anusol-Hc) 25 Mg Supp.rect, 25 MG CA Q8H PRN for HEMORRHOIDS, (Reported) Allergies Coded Allergies: codeine (Verified Adverse Reaction, Intermediate, N/V, 02/21/20) Past Medical History Medical History Parkinson's dementia, hypertension, depression, diastolic CHF Surgical History Unable to obtain due to clinical condition Family History Unable to obtain due to clinical condition Social History * Smoker: Denies Alcohol: Denies Drugs: denies Recent Travel/Sick Contacts: Denies: Recent travel, Recent sick contacts Psychosocial History: Dementia, Depression From intermediate. A-FIB/CHADSVASC A-FIB History Current/History of A-Fib/PAF?: No Review of Systems Constitutional: Reports: Fatigue; Denies: Chills, Fever, Malaise Eyes: Denies: Pain, Vision change ENT: Reports: Head Aches; Denies: Ear Pain, Sore Throat Skin: Denies: Rash, Lesions Pulmonary: Denies: Dyspnea, Cough, Pleuritic Chest Pain Cardiovascular: Denies: Chest Pain, Palpitations, Edema, Lt Headedness Gastrointestinal: Reports: Abdominal Pain, Constipation; Denies: Nausea, Vomiting, Diarrhea, Melena Genitourinary: Denies: Dysuria Hematologic: Denies: Bruising Musculoskeletal: Reports: Leg Pain, Joint Pain Neurological: Denies: Weakness, Numbness, Seizures Psych: Reports: Other Psych (unable to accurately assess due to clinical co ndition of dementia) Physical Examination General Exam: Positive: Alert (only to self), Cooperative, No Acute Distress, Other (elderly female who looks stated age. Currently confused but does attempt to answer questions. Speaking full sentences.) Eye Exam: Positive: PERRLA, EOMI; Negative: Sclera icteric ENT Exam: Positive: Mucous membr. moist/pink, Other ENT (small scalp laceration noted in occipital area with dried blood around it approximately 7-10 mm in length.) Neck Exam: Positive: Supple, +2 carotid pulse wo bruit; Negative: JVD, thyromegaly Chest Exam: Positive: Clear to auscultation, Normal air movement, Diminished (diminished at the bases); Negative: Rhonchi, Wheezing Heart Exam: Positive: Rate Normal, Regular Rhythm, Normal S1, Normal S2; Negative: Murmurs, Rubs Abdomen Exam: Positive: BS Hypoactive, Other (distended, tender to palpation in the lower quadrants bilaterally, no voluntary guarding noted or rigidity) Extremity Exam: Positive: Other (right lower extremity is externally rotated. Decreased range of motion due to pain. Tender to palpation of the hip joint); Negative: Clubbing, Edema Skin Exam: Positive: Nl turgor and temperature Neuro Exam: Positive: Normal Speech, Strength at 5/5 X4 ext, Normal Tone, Sensation Intact Psych Exam: Positive: Other (pleasantly demented, confused); Negative: Anxiety Vital Signs Vital Signs Date Time Temp Pulse Resp B/P (MAP) Pulse Ox O2 Delivery O2 Flow Rate FiO2 02/21/20 05:30 95 134/77 (96) 96 02/21/20 04:00 97.4 20 Room Air Laboratory Data Labs 24H Laboratory Tests 2 02/21/20 04:46: Immature Granulocyte % (Auto) 1.3, Neutrophils (%) (Auto) 86.0H, Lymphocytes (%) (Auto) 7.4L, Monocytes (%) (Auto) 5.0, Eosinophils (%) (Auto) 0.1, Basophils (%) (Auto) 0.2, Neutrophils # (Auto) 16.1H, Lymphocytes # (Auto) 1.4L, Monocytes # (Auto) 0.9H, Eosinophils # (Auto) 0.0, Basophils # (Auto) 0.0, Nucleated Red Blood Cells % (auto) 0.0, Anion Gap 6L, Glomerular Filtration Rate > 60.0, Calcium Level 9.8 02/21/20 04:48: Prothrombin Time 14.2H, Prothromb Time International Ratio 1.13, Activated Partial Thromboplast Time 40.3H CBC/BMP Laboratory Tests 02/21/20 04:46 RAD Interpretation STUDY: CT pelvis Rad Actions: Report Reviewed, Films Reviewed RAD Interpretation: Other Result Comments: (right intertrochanteric fracture that is medially displaced) STUDY: CT abdomen Rad Actions: Report Reviewed, Films Reviewed RAD Interpretation: Other Result Comments: (severe constipation noted and stool burden) Assessment/Plan 84-year-old female with severe dementia presents from a intermediate for a fall. Found to have right intertrochanteric hip fracture. Imaging also reveals evidence of obstipation and distention due to large stool burden. Patient admitted to medical service for likely orthopedic intervention and further management. Plan / VTE VTE Prophylaxis Ordered?: Yes Plan Plan Right intertrochanteric fracture with medial displacement Patient has had a mechanical fall that resulted in hip fracture. Likely needs orthopedic intervention at this time for repair. Patient has elevated white count but no obvious signs of infection and may just be reactive. Her analysis is pending. EKG shows sinus rhythm and labs otherwise reveal no gross abnormalities. - Follow up ortho consult- still pending - Keep nothing by mouth for now - Pain control with lidocaine patch and tramadol when necessary - Bedrest for now - PT eval once orthopedic interventions complete - Gentle IV fluids while nothing by mouth Abdominal distention likely secondary to obstipation Patient has distended abdomen. Imaging reveals she has severe burden of stool. We'll start aggressive bowel regimen for symptomatically relief. - Every 4 hour tapwater enemas until bowel movement - Dulcolax suppositories every 4 hours for 2 doses - If no bowel movement by then, we'll consider GoLYTELY - Serial abdominal exams Severe dementia Parkinson's disease Depression Unclear as to what patient's baseline is at this time. Given elevated white count, will obtain UA. - Follow up urinalysis - Frequent reorientation - Avoid sedating medications and benzodiazepines - Monitor for sundowning - Continue with carbidopa levodopa as per home dose - Continue with sertraline as per home dose Glaucoma - Continue latanoprost Patient's healthcare proxy will be her son Malvin. Son at this time wishes for surgical procedure to be done. Patient remains full code. IVF: Initiate Diet: Make NPO Activity: Bedrest Therapy: PT Anticipated Discharge: Sub Acute Rehab, [facility] JEY DIALLO MD Feb 21, 2020 06:34
[2020-02-21] MEDS ORDERED: KETOROLAC 30 MG/ML VIAL (J1885) IV PRN (06:45)
--- NOTE | 2020-02-21 08:45 | ECGEPIP ---
[facility] - ED Test Date: 2020-02-21 Pat Name: BARBARA ARNETT Department: Room: [place] [address] Gender: Female Entry Level Programmer: yolanda : 1935 Requested By: ERICK GILL Order Number: [id number] Reading MD: Lizett So Measurements Intervals [place] Rate: 79 P: 19 WA: 144 QRS: 23 QRSD: 93 T: -12 QT: 377 QTc: 433 Interpretive Statements SINUS RHYTHM baseline artifact may affect interpretation PRWP LAD NSTTW abnormalities Electronically Signed on 02-21-2020 8:45:43 EDT by Lizett oS
--- NOTE | 2020-02-21 08:50 | REP ---
Clinical: Trauma. Fracture. Technique: AP and cross-table lateral views of the femur. Findings: Visualized portions of the femur demonstrate intertrochanteric fracture through the proximal right femur. No further obvious acute fracture or dislocation. Surrounding soft tissues are unremarkable. Impression: Intertrochanteric fracture of the right proximal femur. Electronically Signed by León Brooks MD 02/21/2020 08:41 A
--- NOTE | 2020-02-21 08:53 | REP ---
Clinical: Trauma. Fall. Technique: AP and cross-table lateral views of the right knee. Findings: Age-related osteopenia and tricompartmental degenerative changes noted. No obvious acute knee fracture. No obvious effusion. No subcutaneous emphysema or foreign body. Impression: Osteopenia and tricompartmental degenerative changes. No obvious acute knee fracture. Electronically Signed by León Brooks MD 02/21/2020 08:44 A
--- NOTE | 2020-02-21 08:56 | REP ---
Clinical: Trauma. Technique: Frontal view of the pelvis with neutral and frog lateral views of the left hip along with neutral and cross-table lateral views of the right hip. Findings: There is an acute intertrochanteric fracture through the right proximal femur. There is moderate degenerative changes noted involving the pelvis and bilateral hip joints. Impression: 1. Acute intertrochanteric fracture through the right proximal femur. 2. Generalized age-related degenerative changes of the pelvis and bilateral hip joints. Electronically Signed by León Brooks MD 02/21/2020 08:46 A
[2020-02-21] MEDS: FUROSEMIDE 40 MG TAB PO SCH ×2 (09:00→10:25)
[2020-02-21] MEDS: LIDOCAINE 5% (LIDODERM) PATCH TD SCH (09:00)
[2020-02-21] MEDS: PANTOPRAZOLE 40MG TAB (PROTONIX) PO SCH (09:00)
[2020-02-21] MEDS: SUCRALFATE 1 GM TAB PO SCH ×4 (10:12→21:41)
[2020-02-21] MEDS: DOCUSATE SODIUM 100 MG CAP PO SCH ×2 (10:14→20:20)
[2020-02-21] MEDS: SINEMET 25-100 MG TAB PO SCH ×4 (10:25→21:41)
[2020-02-21] MEDS: BISACODYL 10 MG SUPP PR SCH ×3 (10:25→16:00)
[2020-02-21] MEDS: LR 1,000 ML IV SCH ×2 (10:34→20:17)
--- NOTE | 2020-02-21 12:41 | IPNPDOC ---
Text Note Date of Service The patient was seen on 02/21/20. NOTE Subjective: No any acute events overnight. Patient denies fever, chills, nausea. Patient complains of right hip pain 7 out of 10. Also patient complains of constipation. Objective: VITAL SIGNS: Please see below. GENERAL APPEARANCE: not in apparent distress HEENT: Normocephalic, atraumatic. Mucous members moist and pink CARDIOVASCULAR: Regular rate and rhythm. No murmurs, rubs or gallops. Radial pulses are intact. There is no lower extremity edema LUNGS: Diminished lung sounds ABDOMEN: Abdomen is soft and nontender. MUSCULOSKELETAL: Tenderness over right hip area, pulsation preserved bilaterally NEUROLOGICAL: Cranial nerves II-12 are grossly intact. Speech is not dysarthric 84-year-old female with severe dementia presented hospital after mechanical fall. Patient was found to have right hip fracture. Orthopedic team will proceed with surgery today. Plan Right intertrochanteric fracture with medial displacement Orthopedic team will proceed with surgery today Abdominal distention likely secondary to obstipation MiraLAX when necessary Severe dementia Continue home meds Parkinson's disease Continue home meds Glaucoma Continue latanoprost VS,Fishbone, I+O VS, Fishbone, I+O Laboratory Tests 02/21/20 04:46 Vital Signs Date Time Temp Pulse Resp B/P (MAP) Pulse Ox O2 Delivery O2 Flow Rate FiO2 02/21/20 08:29 98.1 90 16 148/93 (111) 93 Room Air CARMEN TRIVEDI DO Feb 21, 2020 12:41
[2020-02-21] MEDS: ACETAMINOPHEN TAB 650MG DOSE (2X325MG) PO PRN (13:55)
[2020-02-21] MEDS ORDERED: dexameTHASONE 4 MG/ML 1ML VIAL (J1100) As Ordered ONE (15:07)
[2020-02-21] MEDS ORDERED: LIDOCAINE 2% INJ 100 MG/5 ML SDV (FOR ANES.) As Ordered ONE (15:07)
[2020-02-21] MEDS ORDERED: ONDANSETRON 4MG/2ML VIAL (J2405) As Ordered ONE ×2 (15:07→17:57)
[2020-02-21] MEDS ORDERED: fentaNYL 100 MCG/2 ML INJECTION (J3010) As Ordered ONE (15:09)
[2020-02-21] MEDS ORDERED: propofoL 200 MG/20 ML VIAL As Ordered ONE (15:26)
[2020-02-21] MEDS ORDERED: KETAMINE HCL 200 MG/20 ML VIAL As Ordered ONE (15:59)
[2020-02-21] MEDS ORDERED: ceFAZolin 2 GM/D5W 50 ML IV BAG (J0690 PER 500MG) As Ordered ONE (16:01)
[2020-02-21] MEDS ORDERED: PHENYLephrine HCL 500 MCG/5 ML (100MCG/ML) SYRINGE (J2370) As Ordered ONE (16:47)
[2020-02-21] MEDS ORDERED: fentaNYL 100 MCG/2 ML INJECTION (J3010) IV PRN (18:00)
[2020-02-21] MEDS ORDERED: LR 1,000 ML IV SCH (18:00)
[2020-02-21] MEDS ORDERED: oxyCODONE 5MG TAB PO PRN (18:00)
[2020-02-21] MEDS ORDERED: HYDROMORPHONE HCL 0.5 MG/ 0.5 ML SYRINGE (J1170 PER 1) IV PRN (18:00)
[2020-02-21] MEDS ORDERED: ONDANSETRON 4MG/2ML VIAL (J2405) IV PRN (18:00)
--- NOTE | 2020-02-21 18:18 | REP ---
Clinical: Fixation. Technique: Intraoperative fluoroscopic imaging using portable C-arm technique. Findings: The patient is status post intramedullary joe placement and fixation for right proximal femur fracture. Total fluoroscopic time 2 minutes 7 seconds. Impression: Status post satisfactory open reduction and fixation for proximal femur fracture. Electronically Signed by León Brooks MD 02/21/2020 06:09 P
[2020-02-21] MEDS ORDERED: MIRALAX *UNIT DOSE* 17GM PACKET PO PRN (18:45)
--- NOTE | 2020-02-21 20:16 | CR ---
DATE OF CONSULTATION: 02/21/2020 CHIEF COMPLAINT: Right hip pain. Patient reports that she thinks she took a fall at home but does not fully remember. She has a past medical history of chronic anemia, hypertension, Parkinson's dementia, and depression. Thinks that her right hip pain hurts, about 5 or 6 out of 10, made worse with movement with sharp pain and is alleviated with rest and pain medication. Denies any fevers, chills, nausea, or vomiting. She is a resident at [facility] and was found down and hit her head. MEDICATIONS: Carbidopa-levodopa, denosumab, furosemide, pantoprazole, sertraline. ALLERGIES: CODEINE (nausea). PAST MEDICAL HISTORY: 1. Parkinson's dementia. 2. Hypertension. 3. Diastolic congestive heart failure (CHF). 4. Depression. PAST SURGICAL HISTORY: Unable to obtain from the patient. SOCIAL HISTORY: Denied any smoking or drinking. Is a resident at a [facility]. PHYSICAL EXAMINATION: Patient is awake and aware. Breathing unlabored on room air. Normocephalic, atraumatic. Bilateral upper extremities fingers, wrists, and elbow without any pain or discomfort. Skin is intact. Radial pulse 2+, regular rate. Positive anterior interosseous nerve (AIN), posterior interosseous nerve (PIN), and ulnar motor function. Skin intact. Left lower extremity: Negative log roll. No tenderness to palpation. Positive extensor hallucis longus (EHL), patella, tibial, and gastroc motor function. Skin is intact. Posterior tibial pulses 2+, regular rate. Sensation intact to light touch is superficial peroneal, deep peroneal, sural, saphenous, tibial distributions. Right lower extremity: Tender to palpation over right hip. Positive log roll. No tenderness to palpation about the knee or distally. Positive EHL, flexor hallucis longus (FHL) tibial, and gastroc motor function. Sensation intact to light touch in superficial peroneal, deep peroneal, sural, saphenous, tibial distributions. Unable to complete 10-system review due to the patient's dementia. IMAGING: Review of CT scan of the pelvis along with hip, femur, and knee x-ray demonstrates right displaced intertrochanteric femur fracture. PLAN: The patient is being admitted to medicine and undergoing preoperative clearance. Once this is obtained we will plan for intramedullary rodding of the right hip in order to increase ambulation, pain control. Patient expressed understanding and agreement with this plan, including the risks and benefits, including infection, damage to structures, bleed. This was also discussed with her son, Alex, at the number . She is currently nothing by mouth on bed rest.
[2020-02-21] MEDS: **NOTE PATIENT COMMENT** MISC XX SCH (21:00)
[2020-02-21] MEDS: SERTRALINE HCL 50 MG TAB PO SCH (21:41)
[2020-02-21] MEDS: LATANOPROST 0.005% OPHTH SOLN 2.5 ML OU SCH (21:41)
[2020-02-22 01:02] VITALS: BP 126/83
[2020-02-22] MEDS: ceFAZolin SOD 1 GM in D5W MINI-BAG PLUS 50 ML IV SCH ×3 (01:10→17:27)
[2020-02-22] MEDS: ACETAMINOPHEN TAB 650MG DOSE (2X325MG) PO PRN ×2 (03:00→20:17)
[2020-02-22] MEDS: traMADol 50 MG TAB PO PRN (03:01)
[2020-02-22 06:44] VITALS: BP 126/84
[2020-02-22 07:03] LABS: HEMATOCRIT 26.6 % (36.0-47.0); MEAN CORPUSCULAR HEMOGLOBIN 21.6 pg (27.0-33.0); MEAN CORPUSCULAR HGB CONC 30.8 g/dl (32.0-36.5); MEAN CORPUSCULAR VOLUME 70.2 fl (80.0-96.0); PLATELET COUNT, AUTOMATED 250 10^3/uL (150-450); RED BLOOD COUNT 3.79 10^6/uL (4.00-5.40); WHITE BLOOD COUNT 13.3 10^3/uL (4.0-10.0)
[2020-02-22 07:04] LABS: HEMOGLOBIN 8.2 g/dl (12.0-15.5)
[2020-02-22 07:22] LABS: BLOOD UREA NITROGEN 33 MG/DL (7-18); CALCIUM LEVEL 9.2 MG/DL (8.8-10.2); CARBON DIOXIDE LEVEL 29 MEQ/L (21-32); CHLORIDE LEVEL 99 MEQ/L (98-107); CREATININE FOR GFR 0.83 MG/DL (0.55-1.30); GLOMERULAR FILTRATION RATE > 60.0 (>32); GLUCOSE, FASTING 102 MG/DL (70-100); POTASSIUM SERUM 4.5 MEQ/L (3.5-5.1); SODIUM LEVEL 135 MEQ/L (136-145)
[2020-02-22] MEDS: MOM 30ML SUSPENSION UDC PO SCH (08:39)
[2020-02-22] MEDS: MIRALAX *UNIT DOSE* 17GM PACKET PO SCH (08:40)
[2020-02-22] MEDS: PANTOPRAZOLE 40MG TAB (PROTONIX) PO SCH (08:40)
[2020-02-22] MEDS: FUROSEMIDE 40 MG TAB PO SCH (08:40)
[2020-02-22] MEDS: SUCRALFATE 1 GM TAB PO SCH ×4 (08:40→20:16)
[2020-02-22] MEDS: LIDOCAINE 5% (LIDODERM) PATCH TD SCH (08:40)
[2020-02-22] MEDS: SINEMET 25-100 MG TAB PO SCH ×4 (08:40→20:16)
[2020-02-22] MEDS: SENNA 8.6 MG TAB (SENOKOT) PO SCH ×2 (08:40→20:16)
[2020-02-22] MEDS: BISACODYL 10 MG SUPP PR SCH ×2 (08:40→20:16)
--- NOTE | 2020-02-22 08:40 | REP ---
Clinical: Trauma . Technique: Internal rotation, external rotation, and Y view right shoulder. Findings: Age related osteopenia and moderate arthritic degenerative changes are appreciated. No acute fracture or dislocation. The acromioclavicular and glenohumeral joints are intact. No periarticular calcifications or loose bodies are identified. Sub acromial space is normal. Surrounding soft tissues are unremarkable. Impression: Age related osteopenia and moderate arthritic degenerative changes. No acute fracture or dislocation appreciated. Electronically Signed by León Brooks MD 02/22/2020 08:32 A
[2020-02-22 10:00] VITALS: BP 144/92
[2020-02-22 14:00] VITALS: BP 144/89
--- NOTE | 2020-02-22 14:19 | IPNPDOC ---
Text Note Date of Service The patient was seen on 02/22/20. NOTE Subjective: No any acute events overnight. In the morning patient accidentally fell from the bed on the floor, she did not hit her head Patient had 2 large bowel movements overnight Objective: VITAL SIGNS: Please see below. GENERAL APPEARANCE: not in apparent distress HEENT: Normocephalic, atraumatic. Mucous members moist and pink CARDIOVASCULAR: Regular rate and rhythm. No murmurs, rubs or gallops. Radial pulses are intact. There is no lower extremity edema LUNGS: Diminished lung sounds ABDOMEN: Abdomen is soft and nontender. MUSCULOSKELETAL: Tenderness over right hip area, pulsation preserved bilaterally NEUROLOGICAL: Cranial nerves II-12 are grossly intact. Speech is not dysarthric 84-year-old female with severe dementia presented hospital after mechanical f all. Patient was found to have right hip fracture. Orthopedic team will proceed with surgery today. Plan Right intertrochanteric fracture with medial displacement Orthopedic team proceeded with surgery yesterday Will repeat right hip x-ray to rule out displacement after fall Abdominal distention likely secondary to obstipation MiraLAX when necessary Severe dementia Continue home meds Parkinson's disease Continue home meds Glaucoma Continue latanoprost VS,Fishbone, I+O VS, Fishbone, I+O Laboratory Tests 02/22/20 06:24 Vital Signs Date Time Temp Pulse Resp B/P (MAP) Pulse Ox O2 Delivery O2 Flow Rate FiO2 02/22/20 10:00 98.1 100 18 144/92 (109) 96 Nasal Cannula 2.0 I&O- Last 24 Hours up to 6 AM 02/22/20 06:00 Intake Total 1530 ml Output Total 0 ml Balance 1530 ml CARMEN TRIVEDI DO Feb 22, 2020 14:19
--- NOTE | 2020-02-22 15:15 | REP ---
Clinical: Fall. Technique: AP and cross-table lateral views of the right femur. Findings: The patient is noted to be status post open reduction and fixation for proximal femur fracture. Overlying postsurgical changes are appreciated. No new, acute fracture or dislocation identified. Impression: Status post open reduction and fixation. No new acute fracture or dislocation. Electronically Signed by León Brooks MD 02/22/2020 03:06 P
[2020-02-22] MEDS: RIVAROXABAN 10 MG TAB (XARELTO) PO SCH (17:27)
[2020-02-22 18:00] VITALS: BP 98/70
[2020-02-22 20:15] VITALS: BP 133/80
[2020-02-22] MEDS: SERTRALINE HCL 50 MG TAB PO SCH (20:16)
[2020-02-22] MEDS: LATANOPROST 0.005% OPHTH SOLN 2.5 ML OU SCH (20:17)
[2020-02-22] MEDS: **NOTE PATIENT COMMENT** MISC XX SCH (20:18)
[2020-02-23] VITALS (8 sets, daily range): BP systolic 108–134; BP diastolic 63–72
[2020-02-23 06:05] LABS: HEMATOCRIT 23.8 % (36.0-47.0); HEMOGLOBIN 7.2 g/dl (12.0-15.5); MEAN CORPUSCULAR HEMOGLOBIN 21.4 pg (27.0-33.0); MEAN CORPUSCULAR HGB CONC 30.3 g/dl (32.0-36.5); MEAN CORPUSCULAR VOLUME 70.6 fl (80.0-96.0); PLATELET COUNT, AUTOMATED 206 10^3/uL (150-450); RED BLOOD COUNT 3.37 10^6/uL (4.00-5.40); WHITE BLOOD COUNT 10.3 10^3/uL (4.0-10.0)
[2020-02-23 06:36] LABS: BLOOD UREA NITROGEN 33 MG/DL (7-18); CALCIUM LEVEL 9.5 MG/DL (8.8-10.2); CARBON DIOXIDE LEVEL 31 MEQ/L (21-32); CHLORIDE LEVEL 98 MEQ/L (98-107); CREATININE FOR GFR 0.83 MG/DL (0.55-1.30); GLOMERULAR FILTRATION RATE > 60.0 (>32); GLUCOSE, FASTING 113 MG/DL (70-100); POTASSIUM SERUM 4.5 MEQ/L (3.5-5.1); SODIUM LEVEL 134 MEQ/L (136-145)
[2020-02-23] MEDS: FUROSEMIDE 40 MG TAB PO SCH (08:01)
[2020-02-23] MEDS: LIDOCAINE 5% (LIDODERM) PATCH TD SCH (08:01)
[2020-02-23] MEDS: MIRALAX *UNIT DOSE* 17GM PACKET PO SCH (08:01)
[2020-02-23] MEDS: SENNA 8.6 MG TAB (SENOKOT) PO SCH ×2 (08:01→20:48)
[2020-02-23] MEDS: SUCRALFATE 1 GM TAB PO SCH ×4 (08:01→20:48)
[2020-02-23] MEDS: SINEMET 25-100 MG TAB PO SCH ×4 (08:01→20:49)
[2020-02-23] MEDS: BISACODYL 10 MG SUPP PR SCH ×2 (08:01→20:49)
[2020-02-23] MEDS: PANTOPRAZOLE 40MG TAB (PROTONIX) PO SCH (08:01)
[2020-02-23] MEDS: MOM 30ML SUSPENSION UDC PO SCH (08:01)
--- NOTE | 2020-02-23 14:22 | IPNPDOC ---
Text Note Date of Service The patient was seen on 02/23/20. NOTE Subjective: No any acute events overnight. Patient denies fever or chills, nausea, chest pain, palpitations, diarrhea or dysuria Objective: VITAL SIGNS: Please see below. GENERAL APPEARANCE: not in apparent distress HEENT: Normocephalic, atraumatic. Mucous members moist and pink CARDIOVASCULAR: Regular rate and rhythm. No murmurs, rubs or gallops. Radial pulses are intact. There is no lower extremity edema LUNGS: Diminished lung sounds ABDOMEN: Abdomen is soft and nontender. MUSCULOSKELETAL: Tenderness over right hip area, pulsation preserved bilaterally NEUROLOGICAL: Cranial nerves II-12 are grossly intact. Speech is not dysarthric 84-year-old female with severe dementia presented hospital after mechanical fall. Patient was found to have right hip fracture. Orthopedic team will proceed with surgery today. Plan Right intertrochanteric fracture with medial displacement Orthopedic team proceeded with surgery l Abdominal distention likely secondary to obstipation MiraLAX when necessary Improved Severe dementia Continue home meds Dyspnea Patient oxygen requirements around 2 L via nasal cannula Most likely patient developed atelectasis after surgery Incentive spirometry Chest x-ray Parkinson's disease Continue home meds Glaucoma Continue latanoprost Anemia Most likely secondary to acute blood loss during surgery stool for occult blood negative Hemoglobin today is 7.2 Patient received 1 unit of blood Continue iron supplementation VS,Fishbone, I+O VS, Fishbone, I+O Laboratory Tests 02/23/20 05:54 Vital Signs Date Time Temp Pulse Resp B/P (MAP) Pulse Ox O2 Delivery O2 Flow Rate FiO2 02/23/20 12:56 98.4 64 18 114/72 Nasal Cannula 2.0 02/23/20 12:45 95 I&O- Last 24 Hours up to 6 AM 02/23/20 06:00 Intake Total 1945 ml Output Total 0 ml Balance 1945 ml CARMEN TRIVEDI DO Feb 23, 2020 14:22
[2020-02-23] MEDS: FERROUS SULFATE 325MG TAB PO SCH (14:39)
--- NOTE | 2020-02-23 15:11 | REP ---
PORTABLE CHEST: AP portable view of the chest is performed and compared to a prior study of 01/09/2020. There is stable bibasilar fibrotic change and cardiomegaly. No new infiltrate is seen. There is calcification and tortuosity of the thoracic aorta. Mediastinal silhouette is unchanged. IMPRESSION: Cardiomegaly and chronic fibrotic changes. No new infiltrate. Electronically Signed by Rhett Hart MD 02/23/2020 03:21 P
[2020-02-23] MEDS: traMADol 50 MG TAB PO PRN (16:59)
[2020-02-23] MEDS: RIVAROXABAN 10 MG TAB (XARELTO) PO SCH (17:00)
[2020-02-23] MEDS: ACETAMINOPHEN TAB 650MG DOSE (2X325MG) PO PRN (20:48)
[2020-02-23] MEDS: LATANOPROST 0.005% OPHTH SOLN 2.5 ML OU SCH (20:49)
[2020-02-23] MEDS: **NOTE PATIENT COMMENT** MISC XX SCH (20:49)
[2020-02-23] MEDS: SERTRALINE HCL 50 MG TAB PO SCH (20:49)
[2020-02-24 06:00] VITALS: BP 135/67
[2020-02-24 06:00] LABS: HEMATOCRIT 26.7 % (36.0-47.0); HEMOGLOBIN 8.4 g/dl (12.0-15.5); MEAN CORPUSCULAR HEMOGLOBIN 23.1 pg (27.0-33.0); MEAN CORPUSCULAR HGB CONC 31.5 g/dl (32.0-36.5); MEAN CORPUSCULAR VOLUME 73.4 fl (80.0-96.0); PLATELET COUNT, AUTOMATED 183 10^3/uL (150-450); RED BLOOD COUNT 3.64 10^6/uL (4.00-5.40); WHITE BLOOD COUNT 10.3 10^3/uL (4.0-10.0)
[2020-02-24] MEDS ORDERED: MAGNESIUM CITRATE 300 ML BTL PO ONE (06:00)
[2020-02-24 06:24] LABS: BLOOD UREA NITROGEN 30 MG/DL (7-18); CARBON DIOXIDE LEVEL 32 MEQ/L (21-32); CHLORIDE LEVEL 100 MEQ/L (98-107); CREATININE FOR GFR 0.72 MG/DL (0.55-1.30); GLOMERULAR FILTRATION RATE > 60.0 (>32); GLUCOSE, FASTING 105 MG/DL (70-100); POTASSIUM SERUM 3.8 MEQ/L (3.5-5.1); SODIUM LEVEL 136 MEQ/L (136-145)
[2020-02-24] MEDS ORDERED: ACET-841 PO (07:13)
[2020-02-24] MEDS ORDERED: XARE10TA PO (07:13)
[2020-02-24] MEDS ORDERED: TRAM50TA2 PO (07:13)
[2020-02-24] MEDS: MIRALAX *UNIT DOSE* 17GM PACKET PO SCH (08:14)
[2020-02-24] MEDS: MOM 30ML SUSPENSION UDC PO SCH (08:14)
[2020-02-24] MEDS: LIDOCAINE 5% (LIDODERM) PATCH TD SCH (08:15)
[2020-02-24] MEDS: FERROUS SULFATE 325MG TAB PO SCH (08:15)
[2020-02-24] MEDS: FUROSEMIDE 40 MG TAB PO SCH (08:15)
[2020-02-24] MEDS: SUCRALFATE 1 GM TAB PO SCH ×2 (08:15→12:21)
[2020-02-24] MEDS: BISACODYL 10 MG SUPP PR SCH (08:15)
[2020-02-24] MEDS: SINEMET 25-100 MG TAB PO SCH ×2 (08:15→12:21)
[2020-02-24] MEDS: PANTOPRAZOLE 40MG TAB (PROTONIX) PO SCH (08:15)
[2020-02-24] MEDS: SENNA 8.6 MG TAB (SENOKOT) PO SCH (08:15)
[2020-02-24] MEDS: ACETAMINOPHEN TAB 650MG DOSE (2X325MG) PO PRN (08:24)
--- NOTE | 2020-02-24 10:01 | RO ---
DATE OF PROCEDURE: 02/21/2020 PREOPERATIVE DIAGNOSIS: Right intertrochanteric hip fracture. POSTOPERATIVE DIAGNOSIS: Right intertrochanteric hip fracture. PROCEDURE: Right femoral intramedullary rodding. SURGEON: Dr. Sage Lee LEAD DATABASE DEVELOPER: None. ANESTHESIA: Spinal. PREOPERATIVE ANTIBIOTICS: 2 grams of Ancef. COMPLICATIONS: None. BLOOD LOSS: 100 mL. INDICATION: 84-year-old female who had a slip and fall and was found down at her assisted living home. Suffered a right intertrochanteric femur fracture. The injury was discussed with the patient and her son, who is her health care proxy. After discussing the risks and benefits of surgical intervention, we decided to proceed with intervention including, but not limited to, infection, damage to surrounding structures, incomplete relief, malunion, nonunion, and they wished to proceed. DESCRIPTION OF PROCEDURE: Patient was brought back in the supine position, underwent spinal anesthesia, at which point, unfortunately, she had a massive bowel movement being that she had received an enema earlier today on the floor. After she was adequately cleaned up, she was moved over to the fracture table. The right leg was applied in traction. We had preoperative films in both AP and lateral confirming adequate reduction. There was some escape of the lesser trochanter, but we were happy with this, at which point we had time-out confirming site, side, and surgery. We then prepped and draped the right leg in the usual fashion, at which point she had another bowel movement but, fortunately, it was out of the field. We made our starting incision in line with greater trochanter and established our start point confirmed on AP and lateral. We then used our entry reamer and sequentially reamed up to a 12.5. We then inserted the femoral nail, at which point we made another stab incision just anterior to the femur and used a tonsil to spread overtop directly on bone of the femur and then inserted a bone hook, placed it around the lesser trochanter, and pulled into reduction. We then made our incision for the helical blade, inserted the cannula quickly down to bone, at which point, once we confirmed our reduction of her lesser trochanter, we placed the K-wire in the center-center position on the AP and the posterior-inferior head in the lateral. We were happy with the our positioning and reduction of the fragment at that time. We measured for a 90 screw and drilled for a 90 and placed the helical blade in place confirming on AP and lateral that it is in subchondral bone. We maintained reduction, at which point we removed the bone hook and were happy to see that the lesser trochanter had stayed. We then locked the helical blade in place and turned our attention distally. Using perfect sleetmute technique, we made a stab incision over the distal interlocking screw, drilled, and placed the distal interlock that was confirmed on AP and lateral that it was seated nicely through the nail onto the bone. We then took our final films, AP/lateral, of the distal nail and of the hip. We were happy with our reduction and fixation. We irrigated the wound thoroughly, closed with #2-0 Vicryl and nic. Gauze and Tegaderm. Patient was taken off the bed, cleaned appropriately after her bowel movements, and taken to postanesthesia unit (PACU) in stable condition. POSTOPERATIVE PLAN: Patient will be weightbearing as tolerated, receive Surgical Care Improvement Project (SCIP) antiobiotic prophylaxis, start on deep venous thrombosis (DVT) prophylaxis, and will be seen in the office in 2 weeks for a repeat wound checkup.
--- NOTE | 2020-02-24 12:36 | DS.PDOC ---
Discharge Summary General Date of Admission Feb 21, 2020 at 05:55 Date of Discharge 02/24/20 Discharge Summary PROCEDURES PERFORMED DURING STAY: [None]. ADMITTING DIAGNOSES: 1. . DISCHARGE DIAGNOSES: 1. . COMPLICATIONS/CHIEF COMPLAINT: Hip Fracture. HISTORY OF PRESENT ILLNESS: Please refer to admission HP for detailed HPI. HOSPITAL COURSE: Patient was admitted to the hospital and treated for the [facility] conditions: 1. Right intertrochanteric fracture with medial displacement - seen by orthopedics, s/p ORIF 02/21/20. - seen by PT/OT, progressive well. - patient stable for discharge, has bed available at [facility] for continue PT. DISCHARGE MEDICATIONS: Please see below. ALLERGIES: Please see below. PHYSICAL EXAMINATION ON DISCHARGE: VITAL SIGNS: Please see below. GENERAL: awake, alert, NAD HEENT: NCAT, anicteric sclera, MARRY NECK: supple, no JVD CARDIOVASCULAR EXAMINATION: NS1S2, regular rate/rhythm RESPIRATORY EXAMINATION: CTA b/l, no wheezes/rales/rhonchi ABDOMINAL EXAMINATION: positive bowel sounds x 4, NT EXTREMITIES: no cyanosis, clubbing, edema SKIN: warm, no rashes. NEUROLOGICAL EXAMINATION: AAO x 3, no motor/sensory deficits PSYCHIATRIC EXAMINATION: calm, normal affect LABORATORY DATA: Please see below. ACTIVITY: [As tolerated]. DIET: low fat, low cholesterol DISPOSITION: [facility] DISCHARGE INSTRUCTIONS: 1. Please follow up with PCP in 1 week ITEMS TO FOLLOWUP ON ON OUTPATIENT: 1. none DISCHARGE CONDITION: [Stable]. TIME SPENT ON DISCHARGE: Greater than [30] minutes. Vital Signs/I&Os Vital Signs Date Time Temp Pulse Resp B/P (MAP) Pulse Ox O2 Delivery O2 Flow Rate FiO2 02/24/20 07:30 1.0 02/24/20 06:00 98.3 90 19 135/67 (89) 93 Nasal Cannula I&O- Last 24 Hours up to 6 AM 02/24/20 06:00 Intake Total 1380 ml Output Total 250 ml Balance 1130 ml Laboratory Data Labs 24H Laboratory Tests 2 02/24/20 05:30: Nucleated Red Blood Cells % (auto) 0.7H, Anion Gap 4L, Glomerular Filtration Rate > 60.0, Calcium Level 9.0 CBC/BMP Laboratory Tests 02/24/20 05:30 Microbiology Microbiology 02/22/20 Stool Occult Blood (SANTINO) - Final, Complete Discharge Medications Scheduled Calcium Carbonate/Vitamin D3 (Calcium 500-Vit D3 400 Tablet) 1 Each Tablet, 1 TAB PO DAILY, (Reported) Carbidopa/Levodopa (Carbidopa-Levodopa 25-100 Tab) 1 Each Tablet, 1 TAB PO QID, (Reported) 0800/1200/1600/2000 Denosumab Injection (Prolia) 60 Mg/1 Ml Syringe, 60 MG SC ASDIRECTED, (Reported) EVERY 6 MONTHS Ferrous Sulfate (Ferrous Sulfate) 325 Mg Tablet, 325 MG PO DAILY, (Reported) Furosemide (Furosemide) 40 Mg Tablet, 40 MG PO DAILY, (Reported) 0900 Latanoprost (Xalatan) 0.005% 2.5ML Drops, 1 DROP OU QHS, (Reported) Multivitamin (Multivitamins) 1 Each Capsule, 1 CAP PO DAILY, (Reported) Pantoprazole Sodium (Pantoprazole Sodium) 40 Mg Tablet.dr, 40 MG PO DAILY, ( Reported) 0900 Potassium Chloride (Klor-Con M20) 20 Meq Tab.er.prt, 20 MEQ PO BID, (Reported) Rivaroxaban (Xarelto) 10 Mg Tablet, 10 MG PO DAILY Sertraline HCl (Sertraline HCl) 50 Mg Tablet, 50 MG PO QHS, (Reported) Sucralfate (Sucralfate) 1 Gm Tablet, 1 GM PO ACHS, (Reported) Scheduled PRN Acetaminophen (Acetaminophen) 500 Mg Tablet, 2 TAB PO BID PRN for SCHED Hydrocortisone Acetate (Anusol-Hc) 25 Mg Supp.rect, 25 MG DE Q8H PRN for HEMORRHOIDS, (Reported) Tramadol HCl (Tramadol HCl) 50 Mg Tablet, 1-2 TAB PO Q4H PRN for PAIN Allergies Coded Allergies: codeine (Verified Adverse Reaction, Intermediate, N/V, 02/21/20) KAYODE BRADFORD MD Feb 24, 2020 12:36
== END 2020-02-24 12:47 | disposition home or self-care (01) | DRG 481 ==
LOC: M ED 03:42 → M ED INP 05:55 → ENRESERVDT 06:16 → ENRESERVTM 06:16 → M MS5PR 08:27
PROVIDERS: ADMIT Internal Medicine; ATTEND Internal Medicine
PROC: 0QS606Z Reposition Right Upper Femur with Intramedullary Internal Fixation Device, Open Approach (ICD-10-PCS; principal; 2020-02-21 13:00)
DX: S72.141A Displaced intertrochanteric fracture of right femur, initial encounter for closed fracture (principal); I50.32 Chronic diastolic (congestive) heart failure; D62 Acute posthemorrhagic anemia; J98.11 Atelectasis; D64.9 Anemia, unspecified; I11.0 Hypertensive heart disease with heart failure; G31.83 Neurocognitive disorder with Lewy bodies; K59.00 Constipation, unspecified; H40.9 Unspecified glaucoma; F02.80 Dementia in other diseases classified elsewhere, unspecified severity, without behavioral disturbance, psychotic disturbance, mood disturbance, and anxiety; F32.9 Major depressive disorder, single episode, unspecified; W19.XXXA Unspecified fall, initial encounter; Y92.129 Unspecified place in nursing home as the place of occurrence of the external cause; S01.01XA Laceration without foreign body of scalp, initial encounter; Z79.899 Other long term (current) drug therapy; Z88.5 Allergy status to narcotic agent

== ENCOUNTER → 2020-02-26 | Outpatient (REF) | payer MEDICARE ==
[~2020-02-26] MED LIST changes: +ACET-683 PO; +ACET-841 PO; +ANUS25SU PR; +CALCTAB41 PO; +FERR1TAB8 PO; +KLOR20TA42 PO; +PANT-23 PO; +SUCR1TAB56 PO; +TRAM50TA2 PO; +XARE10TA PO
[2020-02-26 11:59] LABS: HEMATOCRIT 33.2 % (36.0-47.0); MEAN CORPUSCULAR HEMOGLOBIN 22.3 pg (27.0-33.0); MEAN CORPUSCULAR HGB CONC 30.1 g/dl (32.0-36.5); MEAN CORPUSCULAR VOLUME 74.1 fl (80.0-96.0); PLATELET COUNT, AUTOMATED 383 10^3/uL (150-450); RED BLOOD COUNT 4.48 10^6/uL (4.00-5.40)
[2020-02-26 12:17] LABS: BLOOD UREA NITROGEN 27 MG/DL (7-18); CALCIUM LEVEL 9.6 MG/DL (8.8-10.2); CARBON DIOXIDE LEVEL 27 MEQ/L (21-32); CHLORIDE LEVEL 99 MEQ/L (98-107); CREATININE FOR GFR 0.78 MG/DL (0.55-1.30); GLOMERULAR FILTRATION RATE > 60.0 (>32); GLUCOSE, FASTING 102 MG/DL (70-100); POTASSIUM SERUM 4.1 MEQ/L (3.5-5.1); SODIUM LEVEL 135 MEQ/L (136-145)
== END ==
PROVIDERS: ATTEND Internal Medicine
DX: K92.1 Melena (principal)

== ENCOUNTER → 2020-02-27 | Outpatient (REF) ==
[2020-02-27 09:55] LABS: HEMATOCRIT 26.2 % (36.0-47.0); HEMOGLOBIN 8.2 g/dl (12.0-15.5); MEAN CORPUSCULAR HGB CONC 31.3 g/dl (32.0-36.5); MEAN CORPUSCULAR VOLUME 73.6 fl (80.0-96.0); RED BLOOD COUNT 3.56 10^6/uL (4.00-5.40); WHITE BLOOD COUNT 10.6 10^3/uL (4.0-10.0)
[2020-02-27 09:58] LABS: PLATELET COUNT, AUTOMATED 234 10^3/uL (150-450)
== END ==
PROVIDERS: ATTEND Internal Medicine
DX: D72.829 Elevated white blood cell count, unspecified (principal)

== ENCOUNTER → 2020-03-03 | Outpatient (REF) ==
[2020-03-03 13:20] LABS: HEMATOCRIT 33.3 % (36.0-47.0); HEMOGLOBIN 10.2 g/dl (12.0-15.5); MEAN CORPUSCULAR HEMOGLOBIN 22.8 pg (27.0-33.0); MEAN CORPUSCULAR HGB CONC 30.6 g/dl (32.0-36.5); MEAN CORPUSCULAR VOLUME 74.3 fl (80.0-96.0); PLATELET COUNT, AUTOMATED 561 10^3/uL (150-450); RED BLOOD COUNT 4.48 10^6/uL (4.00-5.40)
[2020-03-03 13:53] LABS: BLOOD UREA NITROGEN 27 MG/DL (7-18); CALCIUM LEVEL 8.6 MG/DL (8.8-10.2); CARBON DIOXIDE LEVEL 25 MEQ/L (21-32); CHLORIDE LEVEL 100 MEQ/L (98-107); CREATININE FOR GFR 0.76 MG/DL (0.55-1.30); GLOMERULAR FILTRATION RATE > 60.0 (>32); GLUCOSE, FASTING 104 MG/DL (70-100); POTASSIUM SERUM 5.3 MEQ/L (3.5-5.1); SODIUM LEVEL 132 MEQ/L (136-145)
== END ==
PROVIDERS: ATTEND Internal Medicine
DX: K92.2 Gastrointestinal hemorrhage, unspecified (principal)

== ENCOUNTER → 2020-03-08 | Outpatient (REF) ==
[2020-03-08 17:27] LABS: HEMATOCRIT 32.2 % (36.0-47.0); HEMOGLOBIN 10.1 g/dl (12.0-15.5); MEAN CORPUSCULAR HEMOGLOBIN 22.9 pg (27.0-33.0); MEAN CORPUSCULAR HGB CONC 31.4 g/dl (32.0-36.5); MEAN CORPUSCULAR VOLUME 72.9 fl (80.0-96.0); PLATELET COUNT, AUTOMATED 614 10^3/uL (150-450); RED BLOOD COUNT 4.42 10^6/uL (4.00-5.40); WHITE BLOOD COUNT 8.3 10^3/uL (4.0-10.0)
[2020-03-08 17:44] LABS: BLOOD UREA NITROGEN 36 MG/DL (7-18); CALCIUM LEVEL 8.5 MG/DL (8.8-10.2); CARBON DIOXIDE LEVEL 26 MEQ/L (21-32); CHLORIDE LEVEL 100 MEQ/L (98-107); CREATININE FOR GFR 0.77 MG/DL (0.55-1.30); GLOMERULAR FILTRATION RATE > 60.0 (>32); GLUCOSE, FASTING 88 MG/DL (70-100); SODIUM LEVEL 134 MEQ/L (136-145)
== END ==
PROVIDERS: ATTEND Physician Assistant
DX: K92.2 Gastrointestinal hemorrhage, unspecified (principal)

== ENCOUNTER → 2020-03-15 | Outpatient (REF) ==
[2020-03-15 11:42] LABS: HEMATOCRIT 33.6 % (36.0-47.0); HEMOGLOBIN 10.3 g/dl (12.0-15.5); MEAN CORPUSCULAR HEMOGLOBIN 21.8 pg (27.0-33.0); MEAN CORPUSCULAR HGB CONC 30.7 g/dl (32.0-36.5); PLATELET COUNT, AUTOMATED 600 10^3/uL (150-450); RED BLOOD COUNT 4.73 10^6/uL (4.00-5.40); WHITE BLOOD COUNT 12.6 10^3/uL (4.0-10.0)
[2020-03-15 12:08] LABS: BLOOD UREA NITROGEN 23 MG/DL (7-18); CALCIUM LEVEL 8.9 MG/DL (8.8-10.2); CARBON DIOXIDE LEVEL 27 MEQ/L (21-32); CHLORIDE LEVEL 97 MEQ/L (98-107); CREATININE FOR GFR 0.72 MG/DL (0.55-1.30); GLOMERULAR FILTRATION RATE > 60.0 (>32); GLUCOSE, FASTING 112 MG/DL (70-100); POTASSIUM SERUM 3.8 MEQ/L (3.5-5.1); SODIUM LEVEL 132 MEQ/L (136-145)
== END ==
PROVIDERS: ATTEND Physician Assistant
DX: K92.2 Gastrointestinal hemorrhage, unspecified (principal)

== ENCOUNTER 2020-03-18 12:42 | Inpatient (IN) | payer MEDICARE ==
[~2020-03-18] VITALS: Ht 154.9 cm; Wt 62.2 kg
[~2020-03-18 12:42] MED LIST changes: -BISA10SU27 PR; -ENSU1LIQ36 PO; -FLEEENE12 PR; -MAGN400O49 PO; -PEG1POW PO; -SENN1TAB94 PO; -THERTAB52 PO
[2020-03-18 13:35] VITALS: BP 135/85
[2020-03-18 14:16] LABS: HEMATOCRIT 35.2 % (36.0-47.0); HEMOGLOBIN 11.2 g/dl (12.0-15.5); MEAN CORPUSCULAR HGB CONC 31.8 g/dl (32.0-36.5); MEAN CORPUSCULAR VOLUME 69.3 fl (80.0-96.0); PLATELET COUNT, AUTOMATED 600 10^3/uL (150-450); RED BLOOD COUNT 5.08 10^6/uL (4.00-5.40); WHITE BLOOD COUNT 14.9 10^3/uL (4.0-10.0)
[2020-03-18 14:26] LABS: INR 1.34; PROTHROMBIN TIME 16.3 SECONDS (11.8-14.0)
[2020-03-18 14:44] LABS: ALBUMIN 3.1 GM/DL (3.2-5.2); ALT/SGPT 38 U/L (12-78); BILIRUBIN,TOTAL 0.9 MG/DL (0.2-1.0); BLOOD UREA NITROGEN 20 MG/DL (7-18); CALCIUM LEVEL 8.2 MG/DL (8.8-10.2); CARBON DIOXIDE LEVEL 26 MEQ/L (21-32); CHLORIDE LEVEL 98 MEQ/L (98-107); CREATININE FOR GFR 0.78 MG/DL (0.55-1.30); GLOMERULAR FILTRATION RATE > 60.0 (>32); GLUCOSE, FASTING 124 MG/DL (70-100); SODIUM LEVEL 134 MEQ/L (136-145); TOTAL PROTEIN 6.8 GM/DL (6.4-8.2)
--- NOTE | 2020-03-18 15:06 | HPEPDOC ---
General Date of Admission Mar 18, 2020 at 13:33 Date of Service: Mar 18, 2020 Chief Complaint The patient is a 84-year-old female admitted with a reason for visit of Small Bowel Obstruction. Source: Patient, retirement records, Old records Exam Limitations: Clinical conditions Timing/Duration: Day(s) (2) Severity: Moderate, Severe Associated Symptoms: Unobtainable History of Present Illness 84-year-old female with past medical history of recent hip fracture status post repair, diastolic heart failure, Parkinson's dementia, sent to the hospital for possible small bowel obstruction. As per [facility] records, patient has not been feeling well for the last several days. Last bowel movement was reported to be on March 16. Had increasing abdominal distention since then and has complaining of pain this morning. Patient was sent for CT scan which revealed significant distention in the rectosigmoid junction but no free air. The patient to be admitted for management of small bowel obstruction at this time. Unable to obtain further history from patient as she is severely demented and currently in pain. Majority of history was obtained through prior records and [facility] transfer paperwork that was sent with patient. Home Medications Scheduled Calcium Carbonate/Vitamin D3 (Calcium 500-Vit D3 400 Tablet) 1 Each Tablet, 1 TAB PO DAILY, (Reported) Carbidopa/Levodopa (Carbidopa-Levodopa 25-100 Tab) 1 Each Tablet, 1 TAB PO QID, (Reported) 0800/1200/1600/2000 Denosumab Injection (Prolia) 60 Mg/1 Ml Syringe, 60 MG SC ASDIRECTED, (Reported) EVERY 6 MONTHS Ferrous Sulfate (Ferrous Sulfate) 325 Mg Tablet, 325 MG PO DAILY, (Reported) Furosemide (Furosemide) 40 Mg Tablet, 40 MG PO DAILY, (Reported) 0900 Latanoprost (Xalatan) 0.005% 2.5ML Drops, 1 DROP OU QHS, (Reported) Multivitamin (Multivitamins) 1 Each Capsule, 1 CAP PO DAILY, (Reported) Pantoprazole Sodium (Pantoprazole Sodium) 40 Mg Tablet.dr, 40 MG PO DAILY, (Reported) 0900 Potassium Chloride (Klor-Con M20) 20 Meq Tab.er.prt, 20 MEQ PO BID, (Reported) Rivaroxaban (Xarelto) 10 Mg Tablet, 10 MG PO DAILY Sertraline HCl (Sertraline HCl) 50 Mg Tablet, 50 MG PO QHS, (Reported) Sucralfate (Sucralfate) 1 Gm Tablet, 1 GM PO ACHS, (Reported) Scheduled PRN Acetaminophen (Acetaminophen) 500 Mg Tablet, 2 TAB PO BID PRN for SCHED Hydrocortisone Acetate (Anusol-Hc) 25 Mg Supp.rect, 25 MG IL Q8H PRN for HEMORRHOIDS, (Reported) Tramadol HCl (Tramadol HCl) 50 Mg Tablet, 1-2 TAB PO Q4H PRN for PAIN Allergies Coded Allergies: codeine (Verified Adverse Reaction, Intermediate, N/V, 02/21/20) Past Medical History Medical History diastolic CHF, parkinson's dementia, GI bleed, hip fracture Surgical History orthopedic repair of hip fx 02/24/20 Family History Unable to obtain due to clinical condition Social History * Smoker: Denies Alcohol: Denies Drugs: denies Recent Travel/Sick Contacts: Denies: Recent travel, Recent sick contacts Comes from [facility] A-FIB/[facility] A-FIB History Current/History of A-Fib/PAF?: No Review of Systems Constitutional: Reports: Weakness, Fatigue; Denies: Chills, Fever Eyes: Denies: Pain, Vision change ENT: Denies: Head Aches, Ear Pain Skin: Denies: Rash Pulmonary: Denies: Dyspnea, Cough Cardiovascular: Denies: Chest Pain Gastrointestinal: Reports: Abdominal Pain; Denies: Nausea, Vomiting Genitourinary: Denies: Dysuria Musculoskeletal: Reports: Back Pain, Joint Pain Neurological: Denies: Weakness, Numbness Psych: Reports: Memory Issues Physical Examination General Exam: Positive: Alert, Mild Distress (patient appears to be uncomfortable complaining of abdominal pain.), Other (patient extremely hard of hearing and currently unable to answer all questions. Patient has to be directed multiple times to answer one question.) Eye Exam: Positive: PERRLA, Conjunctiva & lids normal, EOMI; Negative: Sclera icteric ENT Exam: Positive: Atraumatic; Negative: Mucous membr. moist/pink (oral mucosa appears to be dry) Neck Exam: Positive: Supple; Negative: JVD Chest Exam: Positive: Clear to auscultation, Normal air movement Heart Exam: Positive: Rate Normal, Regular Rhythm, Normal S1, Normal S2 Abdomen Exam: Positive: BS Hypoactive, Soft, Other (significant abdominal dist ention noted on exam. No fluid wave. No palpable masses noted. Rectal exam reveals impacted stool in the rectal vault.) Extremity Exam: Positive: Normal pulses; Negative: Clubbing, Edema Skin Exam: Positive: Nl turgor and temperature; Negative: Rash Neuro Exam: Positive: Other (unable to assess full neurological exam due to clinical condition. Patient not following commands.) Psych Exam: Positive: Other (unable to assess full psychiatric exam due to clinical condition. Patient appears to be anxious and in pain.) Vital Signs Vital Signs Date Time Temp Pulse Resp B/P (MAP) Pulse Ox O2 Delivery O2 Flow Rate FiO2 03/18/20 13:35 98.0 92 20 135/85 (102) 99 Room Air Laboratory Data Labs 24H Laboratory Tests 2 03/18/20 13:59: Nucleated Red Blood Cells % (auto) 0.3H, Prothrombin Time 16.3H, Prothromb Time International Ratio 1.34 CBC/BMP Laboratory Tests 03/18/20 13:59 RAD Interpretation STUDY: CT abdomen pelvis Rad Actions: Films Reviewed RAD Interpretation: Other Result Comments: (patient has significant distention noted. Some wall thickening of the distal rectum. Findings seem to be consistent with obstruction.) Assessment/Plan 84-year-old female with multiple medical issues including Parkinson's dementia and recent history of hip fracture status post repair presents with worsening abdominal distention over the last several days. Appears to be due to possible obstipation versus small bowel obstruction. We'll place NG tube for decompression at this time as well as multiple laxatives per rectum. Patient has known history of severe obstipation the past. Will Continue to monitor closely and start on fluids while patient remains nothing by mouth. Plan / VTE VTE Prophylaxis Ordered?: Yes Plan Plan Small bowel obstruction versus obstipation Imaging reveals severe distention of the rectosigmoid junction. Surgeon decompressed her abd via rectum at bedside and pt appears much improved. - Nothing by mouth for now\ - hold off on NGT for now - Follow-up surgery consult - Start IV fluids at 80 mL/h while nothing by mouth - Dulcolax suppositories 2 and monitor for bowel movements - Serial abdominal exams - The patient's condition worsens, stat imaging Parkinson's disease Dementia Will hold off on Parkinson's medications for now while patient is getting decompressed. If patient begins to oh signs of rigidity, will resume medications. - Hold home Parkinson's meds for now and reassess in 24 hours Recent hip fx Patient noted to be on xarelto 10 mg daily for DVT prophylaxis after her hip surgery. - c/w xarelto 10mg PO daily Diastolic heart failure, not in exacerbation Patient appears to be well compensated at this time. Continue home dose of Lasix - Continue Lasix at home dose Glaucoma - Continue with home medication eyedrops Depression - Continue with sertraline as per home dose JEY DIALLO MD Mar 18, 2020 15:06
[2020-03-18] MEDS: D5W/LR 1,000 ML IV SCH (15:39)
[2020-03-18] MEDS ORDERED: PREPARATION H SUPP (HEMORRHOID) PR ONE (16:00)
--- NOTE | 2020-03-18 16:07 | CR ---
DATE OF CONSULTATION: 03/18/2020 REASON FOR CONSULTATION: Abdominal distention. HISTORY OF PRESENT ILLNESS: The patient is an 84-year-old female who had a recent hip fracture approximately 2-1/2 weeks ago and was in the retirement where she developed some abdominal distension over the last 48 hours. Her last bowel movement was 2 days ago. She has had increasing abdominal distension since that time. She is not complained of any fevers or chills. No evidence of free air on a CT scan but significant abdominal distension. PAST MEDICAL HISTORY: Her past medical history is significant for history of diastolic congestive heart failure, Parkinson's dementia, gastrointestinal (GI) bleed, hip fracture and orthopedic repair of the hip fracture. MEDICATIONS: Medications include - carbidopa levodopa - vitamin D - calcium carbonate - Prolia - iron - Lasix - Xalatan - multivitamins - pantoprazole - Klor-Con - Xarelto - sertraline - Carafate PHYSICAL EXAMINATION: Physical exam reveals an 84-year-old female who looks stated age. HEENT is unremarkable. Lungs are clear anteriorly. Heart is regular. Abdomen is very tensely distended. She is uncomfortable with palpation but no significant peritoneal signs per se. Extremities: Warm, well-perfused. She has such a thin abdominal wall, her dilated small bowel loops and large bowel loops can be seen through her abdominal wall. Rectal exam was performed and essentially there is somewhat of high tone to her rectal area and during rectal exam, I was able to evacuate some air. IMPRESSION AND PLAN: The patient has probably either rectal stenosis, although it seemed as though I was able to evacuate a fair bit of air with digital rectal exam and I anticipate that she may have a high resting pressure that may be medication related or neurologic related. It is hard to know at this point. But we will try to evacuate some air with a rectal tube and see if that does not make a difference. If we get significant improvement, she may not need an NG tube. Right now this is the most likely etiology for her abdominal distension and possibly is something that will start to wear off as we start use some suppositories to help with the hemorrhoidal swelling and possibly the rectal tube will help with this as well. ADDENDUM: A 28-Nepali chest tube was placed in the rectum and copiously irrigated and a great deal of air as well as stool was able to be removed and the patient's abdominal distension significantly improved and was quite visibly improved to half the amount that it was previously. In any case, I do feel that keeping her nothing by mouth was reasonable. However, an NG tube may not be necessary if she continues to have some output. If she develops any progression of abdominal distension inserting the NG tube is not unreasonable or if she develops any nausea or vomiting. Otherwise, will see how she is doing in the morning see if some simple perianal treatment will help with current situation before entertaining any significant additional treatment such as a diverting colostomy, etc.
[2020-03-18] MEDS ORDERED: THERTAB52 PO (17:18)
[2020-03-18] MEDS ORDERED: XARE10TA PO (17:18)
[2020-03-18] MEDS ORDERED: PEG1POW PO (17:18)
[2020-03-18] MEDS ORDERED: SENN1TAB94 PO (17:18)
[2020-03-18] MEDS ORDERED: ACET-683 PO (17:18)
[2020-03-18] MEDS ORDERED: ENSU1LIQ36 PO (17:30)
[2020-03-18] MEDS ORDERED: ANUSOL HC 25MG SUPP PR PRN (17:30)
[2020-03-18] MEDS ORDERED: MAGN400O49 PO (17:30)
[2020-03-18] MEDS ORDERED: BISA10SU27 PR (17:30)
[2020-03-18] MEDS ORDERED: TRAM50TA2 PO (17:30)
[2020-03-18] MEDS ORDERED: BISACODYL 10 MG SUPP PR PRN (17:30)
[2020-03-18] MEDS ORDERED: FLEEENE12 PR (17:30)
[2020-03-18] MEDS ORDERED: ANUS25SU PR (17:39)
[2020-03-18] MEDS ORDERED: PREPARATION H SUPP (HEMORRHOID) PR SCH (21:00)
[2020-03-18] MEDS ORDERED: HEPARIN SOD (PORCINE) 5000UNITS/ML VIAL (J1644 PER 1000UNITS) SC SCH (21:00)
[2020-03-18] MEDS ORDERED: BISACODYL 10 MG SUPP PR SCH (21:00)
[2020-03-18] MEDS: SINEMET 25-100 MG TAB PO SCH (21:18)
[2020-03-18] MEDS: ALVIMOPAN 12 MG CAPSULE (ENTEREG) PO SCH (21:18)
[2020-03-18] MEDS: SERTRALINE HCL 50 MG TAB PO SCH (21:18)
[2020-03-18] MEDS: RIVAROXABAN 10 MG TAB (XARELTO) PO SCH (21:18)
[2020-03-18] MEDS: ACETAMINOPHEN 500 MG TAB PO SCH (21:19)
[2020-03-18] MEDS: LATANOPROST 0.005% OPHTH SOLN 2.5 ML OU SCH (21:42)
[2020-03-19] MEDS: D5W/LR 1,000 ML IV SCH (02:41)
[2020-03-19] MEDS ORDERED: ONDANSETRON 4MG/2ML VIAL IV PRN (05:45)
[2020-03-19] MEDS ORDERED: DICYCLOMINE 10 MG CAP PO ONE (06:00)
[2020-03-19 08:09] LABS: HEMATOCRIT 29.6 % (36.0-47.0); HEMOGLOBIN 9.3 g/dl (12.0-15.5); MEAN CORPUSCULAR HEMOGLOBIN 21.9 pg (27.0-33.0); MEAN CORPUSCULAR HGB CONC 31.4 g/dl (32.0-36.5); MEAN CORPUSCULAR VOLUME 69.6 fl (80.0-96.0); RED BLOOD COUNT 4.25 10^6/uL (4.00-5.40); WHITE BLOOD COUNT 9.8 10^3/uL (4.0-10.0)
[2020-03-19 08:17] LABS: PLATELET COUNT, AUTOMATED 410 10^3/uL (150-450)
[2020-03-19 08:50] LABS: BLOOD UREA NITROGEN 13 MG/DL (7-18); CALCIUM LEVEL 7.3 MG/DL (8.8-10.2); CARBON DIOXIDE LEVEL 29 MEQ/L (21-32); CHLORIDE LEVEL 102 MEQ/L (98-107); CREATININE FOR GFR 0.49 MG/DL (0.55-1.30); GLOMERULAR FILTRATION RATE > 60.0 (>32); GLUCOSE, FASTING 84 MG/DL (70-100); POTASSIUM SERUM 3.1 MEQ/L (3.5-5.1); SODIUM LEVEL 137 MEQ/L (136-145)
[2020-03-19] MEDS: PREPARATION H SUPP (HEMORRHOID) PR SCH ×3 (09:00→21:00)
[2020-03-19] MEDS: SINEMET 25-100 MG TAB PO SCH ×4 (09:50→20:38)
[2020-03-19] MEDS: ALVIMOPAN 12 MG CAPSULE (ENTEREG) PO SCH ×2 (09:50→20:38)
[2020-03-19] MEDS: ACETAMINOPHEN 500 MG TAB PO SCH ×2 (09:50→20:37)
[2020-03-19] MEDS: PANTOPRAZOLE 40MG TAB (PROTONIX) PO SCH (09:50)
[2020-03-19] MEDS: FUROSEMIDE 40 MG TAB PO SCH (09:50)
[2020-03-19] MEDS ORDERED: POTASSIUM CHLORIDE 10 MEQ SR TABLET PO ONE (11:30)
--- NOTE | 2020-03-19 11:33 | IPNPDOC ---
Subjective Date Seen The patient was seen on 03/19/20. Subjective Chief Complaint/HPI Patient seen and examined at bedside this morning. Patient appears to be feeling better as she is in less pain and not moaning as she was yesterday. Patient was unable to verbalize anything meaningful during our conversation. As per nursing staff no acute events overnight. Patient has rectal tube in place has been draining stool over the past 24 hours. Abdominal wall has remained less distended since it was decompressed by surgery yesterday. Other systems Unable to obtain full review of systems due to patient's clinical condition advanced dementia Objective Physical Examination General Exam: Positive: Alert, No Acute Distress, Other (patient appears to be more comfortable is no longer moaning in pain. Unable to verbalize much more) Eye Exam: Positive: PERRLA, Conjunctiva & lids normal, EOMI; Negative: Sclera icteric ENT Exam: Positive: Atraumatic; Negative: Mucous membr. moist/pink (oral mucosa appears to be dry) Neck Exam: Positive: Supple; Negative: JVD Chest Exam: Positive: Clear to auscultation, Normal air movement Heart Exam: Positive: Rate Normal, Regular Rhythm, Normal S1, Normal S2 Abdomen Exam: Positive: BS Hypoactive, Soft, Other (abdomen is much less distended than it was yesterday. Patient appears to be comfortable. No fluid wave on exam. Rectal tube in place draining brown stool); Negative: Tenderness Extremity Exam: Positive: Normal pulses; Negative: Clubbing, Edema Skin Exam: Positive: Nl turgor and temperature; Negative: Rash Neuro Exam: Positive: Other (unable to assess full neurological exam due to clinical condition. Patient not following commands.) Psych Exam: Positive: Mood NL, Other (unable to assess mental status due to clinical condition) Assessment /Plan Assessment 84-year-old female with multiple medical issues including Parkinson's dementia and recent history of hip fracture status post repair presents with worsening abdominal distention over the last several days. Initially there was concern for small bowel obstruction. Patient had rectal tube placed yesterday and stomach was decompressed via rectum. Currently appears much more comfortable at this time. We'll advance diet to clear liquids as per discussion with surgery and monitor. Anticipating that patient can be discharged next 24-48 hours if she is able to tolerate by mouth intake and her abdominal distention does not recur. Plan/VTE VTE Prophylaxis Ordered?: Yes Plan Small bowel obstruction versus obstipation Imaging reveals severe distention of the rectosigmoid junction. Surgeon decompressed her abd via rectum at bedside and pt appears much improved. -Advanced to clear liquid diet. Monitor for now and advance as tolerated - hold off on NGT for now - Follow-up surgery consult - consult noted and appreciated -Will consider DC fluids depending on patient's by mouth intake - Serial abdominal exams - The patient's condition worsens, stat imaging Parkinson's disease Dementia Resume medications for now given patient is no longer nothing by mouth -Resume carbidopa levodopa as per home dose Recent hip fx Patient noted to be on xarelto 10 mg daily for DVT prophylaxis after her hip surgery. - c/w xarelto 10mg PO daily Diastolic heart failure, not in exacerbation Patient appears to be well compensated at this time. Continue home dose of Lasix - Continue Lasix at home dose Glaucoma - Continue with home medication eyedrops Depression - Continue with sertraline as per home dose VS, I&O, 24H, Fishbone Vital Signs/I&O Vital Signs Date Time Temp Pulse Resp B/P (MAP) Pulse Ox O2 Delivery O2 Flow Rate FiO2 03/18/20 13:35 98.0 92 20 135/85 (102) 99 Room Air I&O- Last 24 Hours up to 6 AM 03/19/20 06:00 Intake Total 605 ml Output Total 1600 ml Balance -995 ml Laboratory Data 24H LABS Laboratory Tests 2 03/18/20 13:59: Nucleated Red Blood Cells % (auto) 0.3H, Prothrombin Time 16.3H, Prothromb Time International Ratio 1.34, Anion Gap 10, Glomerular Filtration Rate > 60.0, Calcium Level 8.2L, Total Bilirubin 0.9, Aspartate Amino Transf (AST/SGOT) 19, Alanine Aminotransferase (ALT/SGPT) 38, Alkaline Phosphatase 222H, Total Protein 6.8, Albumin 3.1L, Albumin/Globulin Ratio 0.84L 03/19/20 07:33: Nucleated Red Blood Cells % (auto) 0.0, Anion Gap 6L, Glomerular Filtration Rate > 60.0, Calcium Level 7.3L CBC/BMP Laboratory Tests 03/18/20 13:59 03/19/20 07:33 JEY DIALLO MD Mar 19, 2020 11:33
--- NOTE | 2020-03-19 13:28 | IPN ---
DATE: 03/19/2020 The patient has done well overnight, has dropped her white count nicely. She has been afebrile. She is having less pain, but in general, she is still a little bit distended this morning. She does complain of some minimal abdominal pain but nothing compared to yesterday. She was started on a clear liquid diet and is tolerating that so far. On her physical exam, her abdomen is distended still with some tympany but definitely no peritoneal signs. No guarding, no rebound. Rectal tube is in place and they are continuing with their irrigation techniques. 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 I do feel with suppositories we may be able to get this to improve to some extent, but for right now while she is still a little bit distended, I would keep the rectal tube in place overnight and discontinue her on clears. If she seems to have continued improvement, then it may be reasonable for a trial of the rectal tube out for 24 hours after starting her on a regular diet tomorrow. Otherwise, if she tolerates regular diet for 24 hours, she can be discharged to home/shelter and followup on an as needed basis with myself.
[2020-03-19 14:00] VITALS: BP 95/60
[2020-03-19 20:14] VITALS: BP 108/73
[2020-03-19] MEDS: SERTRALINE HCL 50 MG TAB PO SCH (20:38)
[2020-03-19] MEDS: LATANOPROST 0.005% OPHTH SOLN 2.5 ML OU SCH (20:39)
[2020-03-19] MEDS: RIVAROXABAN 10 MG TAB (XARELTO) PO SCH (20:39)
[2020-03-20 06:00] VITALS: BP 113/69
[2020-03-20 07:28] LABS: HEMATOCRIT 31.4 % (36.0-47.0); HEMOGLOBIN 9.8 g/dl (12.0-15.5); MEAN CORPUSCULAR HEMOGLOBIN 21.7 pg (27.0-33.0); MEAN CORPUSCULAR HGB CONC 31.2 g/dl (32.0-36.5); MEAN CORPUSCULAR VOLUME 69.6 fl (80.0-96.0); PLATELET COUNT, AUTOMATED 419 10^3/uL (150-450); RED BLOOD COUNT 4.51 10^6/uL (4.00-5.40); WHITE BLOOD COUNT 10.4 10^3/uL (4.0-10.0)
[2020-03-20 07:49] LABS: BLOOD UREA NITROGEN 9 MG/DL (7-18); CALCIUM LEVEL 6.9 MG/DL (8.8-10.2); CARBON DIOXIDE LEVEL 29 MEQ/L (21-32); CHLORIDE LEVEL 100 MEQ/L (98-107); CREATININE FOR GFR 0.35 MG/DL (0.55-1.30); GLOMERULAR FILTRATION RATE > 60.0 (>32); GLUCOSE, FASTING 74 MG/DL (70-100); MAGNESIUM LEVEL 1.7 MG/DL (1.8-2.4); POTASSIUM SERUM 3.5 MEQ/L (3.5-5.1); SODIUM LEVEL 137 MEQ/L (136-145)
[2020-03-20] MEDS ORDERED: POTASSIUM CHLORIDE 10 MEQ SR TABLET PO SCH (09:00)
[2020-03-20] MEDS: PREPARATION H SUPP (HEMORRHOID) PR SCH ×2 (09:00→21:26)
[2020-03-20] MEDS: FUROSEMIDE 40 MG TAB PO SCH (09:38)
[2020-03-20] MEDS: ALVIMOPAN 12 MG CAPSULE (ENTEREG) PO SCH ×2 (09:38→21:26)
[2020-03-20] MEDS: PANTOPRAZOLE 40MG TAB (PROTONIX) PO SCH (09:39)
[2020-03-20] MEDS: SINEMET 25-100 MG TAB PO SCH ×4 (09:39→21:25)
[2020-03-20] MEDS: ACETAMINOPHEN 500 MG TAB PO SCH ×2 (09:40→21:25)
--- NOTE | 2020-03-20 10:17 | IPNPDOC ---
Text Note Date of Service The patient was seen on 03/20/20. NOTE Patient still complains of nausea, feels just about same, complains of lower abdominal discomfort, afebrile, minimal oral intake d/t nausea VS stable nontachycardic comfortable, looks frail abdomen softly distended, no noticeable grimacing but patient reports tenderness all over area of palpation, no rebound, quiet abdomen rectal tube in place with liquid brown stool Impression Large bowel obstruction at level of distal rectum ?stenosis looks chronic will check an abdominal xray to gauge degree of colon distention improvement prob consider colonoscopy vs hypaque enema next week if no better. VS,Fishbone, I+O VS, Fishbone, I+O Laboratory Tests 03/20/20 07:11 Vital Signs Date Time Temp Pulse Resp B/P (MAP) Pulse Ox O2 Delivery O2 Flow Rate FiO2 03/20/20 06:00 97.6 72 18 113/69 (84) 97 Room Air 03/19/20 20:30 2.0 I&O- Last 24 Hours up to 6 AM 03/20/20 06:00 Intake Total 1320 ml Output Total 2225 ml Balance -905 ml RADHA CASTELLANO MD Mar 20, 2020 10:17
--- NOTE | 2020-03-20 10:21 | IPNPDOC ---
Subjective Date Seen The patient was seen on 03/20/20. Subjective Chief Complaint/HPI Patient seen and examined at bedside this morning. Patient states that she is feeling better and that her stomach does not hurt. She also verbalizes that she has no other pain in her body at this time. Rushing was limited due to her clinical condition at baseline. As per nursing staff no acute events overnight. Rectal tube is still putting out copious amounts of brown stool. Gastrointestinal: Denies: Nausea, Vomiting, Abdominal Pain Other systems Unable to obtain full review of systems due to clinical condition and dementia. Objective Physical Examination General Exam: Positive: Alert, No Acute Distress, Other (patient appears to be comfortable today. Does not verbalize much but states that she does not have any stomach pain.) Eye Exam: Positive: PERRLA, Conjunctiva & lids normal, EOMI; Negative: Sclera icteric ENT Exam: Positive: Atraumatic; Negative: Mucous membr. moist/pink (oral mucosa appears to be dry) Neck Exam: Positive: Supple; Negative: JVD Chest Exam: Positive: Clear to auscultation, Normal air movement Heart Exam: Positive: Rate Normal, Regular Rhythm, Normal S1, Normal S2 Abdomen Exam: Positive: Normal bowel sounds, Soft, Other (rectal tube in place draining soft brown stool); Negative: Tenderness Extremity Exam: Positive: Normal pulses; Negative: Clubbing, Edema Skin Exam: Positive: Nl turgor and temperature; Negative: Rash Neuro Exam: Positive: Other (unable to assess full neurological exam due to clinical condition. Patient not following commands.) Psych Exam: Positive: Mood NL, Other (unable to assess mental status due to clinical condition) Assessment /Plan Assessment 84-year-old female with multiple medical issues including Parkinson's dementia and recent history of hip fracture status post repair presents with worsening abdominal distention over the last several days. Patient was decompressed by surgery and continues to do well. We do not believe that this is a true small bowel obstruction at this time. Surgical recommendation noted and appreciated. We'll continue to advance diet to mechanical soft today. Plan will be to remove rectal tube tomorrow and assess for 24 hours. Likely anticipate discharge on Sunday if patient continues to progress well. Rest of labs were reviewed and within normal limits Plan/VTE VTE Prophylaxis Ordered?: Yes Plan Small bowel obstruction versus obstipation Imaging reveals severe distention of the rectosigmoid junction. Surgeon decompressed her abd via rectum at bedside and pt appears much improved. - Diet advanced to mechanical soft - hold off on NGT for now - Follow-up surgery consult - consult noted and appreciated - Serial abdominal exams - The patient's condition worsens, stat imaging - Will consider with rectal tube today and DC tomorrow. Parkinson's disease Dementia Resume medications for now given patient is no longer nothing by mouth -Resume carbidopa levodopa as per home dose Recent hip fx Patient noted to be on xarelto 10 mg daily for DVT prophylaxis after her hip surgery. - c/w xarelto 10mg PO daily Diastolic heart failure, not in exacerbation Patient appears to be well compensated at this time. Continue home dose of Lasix - Continue Lasix at home dose Glaucoma - Continue with home medication eyedrops Depression - Continue with sertraline as per home dose VS, I&O, 24H, Fishbone Vital Signs/I&O Vital Signs Date Time Temp Pulse Resp B/P (MAP) Pulse Ox O2 Delivery O2 Flow Rate FiO2 03/20/20 06:00 97.6 72 18 113/69 (84) 97 Room Air 03/19/20 20:30 2.0 I&O- Last 24 Hours up to 6 AM 03/20/20 06:00 Intake Total 1320 ml Output Total 2225 ml Balance -905 ml Laboratory Data 24H LABS Laboratory Tests 2 03/20/20 07:11: Nucleated Red Blood Cells % (auto) 0.0, Anion Gap 8, Glomerular Filtration Rate > 60.0, Calcium Level 6.9L, Magnesium Level 1.7L CBC/BMP Laboratory Tests 03/20/20 07:11 JEY DIALLO MD Mar 20, 2020 10:21
--- NOTE | 2020-03-20 12:48 | REP ---
ABDOMINAL SERIES: Supine and cross-table lateral views of the abdomen and pelvis were performed and correlated with prior CT 03/18/2020. There is no free air. The previously noted significant colonic distention has significantly improved. No significant bowel distention is seen at this time. Oral contrast from the CT exam is now seen in the left colon. Mild air is seen in nondistended distal small bowel loops. There are two gallstones seen in the right upper quadrant. IVC filter is noted. There are mild degenerative changes of the spine. Metallic internal fixation is seen in the right hip. An accompanying view of the chest demonstrates cardiomegaly. There is may be some mild patchy atelectasis or infiltrate in the left lung base. There is calcification and ectasia of the thoracic aorta. IMPRESSION: No free air. Significant improvement of previously noted severe colonic distention. No current evidence of significant bowel distention. Possible mild atelectasis or infiltrate left lung base. Electronically Signed by Rhett Hart MD 03/20/2020 04:20 P
[2020-03-20 14:00] VITALS: BP 107/65
[2020-03-20 20:21] VITALS: BP 102/68
[2020-03-20] MEDS: LATANOPROST 0.005% OPHTH SOLN 2.5 ML OU SCH (21:26)
[2020-03-20] MEDS: SERTRALINE HCL 50 MG TAB PO SCH (21:26)
[2020-03-20] MEDS: RIVAROXABAN 10 MG TAB (XARELTO) PO SCH (21:26)
[2020-03-21 05:44] VITALS: BP 118/77
[2020-03-21 08:01] LABS: HEMATOCRIT 31.4 % (36.0-47.0); MEAN CORPUSCULAR HEMOGLOBIN 22.2 pg (27.0-33.0); MEAN CORPUSCULAR HGB CONC 31.8 g/dl (32.0-36.5); MEAN CORPUSCULAR VOLUME 69.6 fl (80.0-96.0); PLATELET COUNT, AUTOMATED 391 10^3/uL (150-450); RED BLOOD COUNT 4.51 10^6/uL (4.00-5.40)
[2020-03-21 08:08] LABS: BLOOD UREA NITROGEN 11 MG/DL (7-18); CALCIUM LEVEL 6.9 MG/DL (8.8-10.2); CARBON DIOXIDE LEVEL 29 MEQ/L (21-32); CHLORIDE LEVEL 100 MEQ/L (98-107); CREATININE FOR GFR 0.37 MG/DL (0.55-1.30); GLOMERULAR FILTRATION RATE > 60.0 (>32); GLUCOSE, FASTING 69 MG/DL (70-100); MAGNESIUM LEVEL 1.8 MG/DL (1.8-2.4); POTASSIUM SERUM 3.6 MEQ/L (3.5-5.1); SODIUM LEVEL 137 MEQ/L (136-145)
[2020-03-21] MEDS: PREPARATION H SUPP (HEMORRHOID) PR SCH ×2 (09:00→20:37)
[2020-03-21] MEDS: PANTOPRAZOLE 40MG TAB (PROTONIX) PO SCH (09:29)
[2020-03-21] MEDS: ALVIMOPAN 12 MG CAPSULE (ENTEREG) PO SCH ×2 (09:30→20:37)
[2020-03-21] MEDS: FUROSEMIDE 40 MG TAB PO SCH (09:30)
[2020-03-21] MEDS: MAGNESIUM OXIDE 400 MG TAB (MAG-OX) PO SCH ×2 (09:30→20:37)
[2020-03-21] MEDS: SINEMET 25-100 MG TAB PO SCH ×4 (09:30→20:37)
[2020-03-21] MEDS: ACETAMINOPHEN 500 MG TAB PO SCH ×2 (09:31→20:37)
--- NOTE | 2020-03-21 10:22 | IPNPDOC ---
Subjective Date Seen The patient was seen on 03/21/20. Subjective Chief Complaint/HPI Patient seen and examined at bedside this morning. Patient seems to be little bit more verbal today. Patient reports that she is is pain-free and is feeling better. She denies any fevers, chills, shortness of breath, chest pain. It was removed and her abdomen has remained soft. She has no other complaints at this time. Other systems 10 point review of systems is negative except for what is stated above in the subjective Objective Physical Examination General Exam: Positive: Alert, No Acute Distress, Other (patient appears to be comfortable today. Does not verbalize much but states that she does not have any stomach pain.) Eye Exam: Positive: PERRLA, Conjunctiva & lids normal, EOMI; Negative: Sclera icteric ENT Exam: Positive: Atraumatic; Negative: Mucous membr. moist/pink (oral mucosa appears to be dry) Neck Exam: Positive: Supple; Negative: JVD Chest Exam: Positive: Clear to auscultation, Normal air movement Heart Exam: Positive: Rate Normal, Regular Rhythm, Normal S1, Normal S2 Abdomen Exam: Positive: Normal bowel sounds, Soft, Other (rectal tube in place draining soft brown stool); Negative: Tenderness Extremity Exam: Positive: Normal pulses; Negative: Clubbing, Edema Skin Exam: Positive: Nl turgor and temperature; Negative: Rash Neuro Exam: Positive: Other (unable to assess full neurological exam due to clinical condition. Patient not following commands.) Psych Exam: Positive: Mood NL, Other (unable to assess mental status due to clinical condition) Assessment /Plan Assessment 84-year-old female with multiple medical issues including Parkinson's dementia and recent history of hip fracture status post repair presents abdominal distention as a result after decompression via her rectum. Repeat imaging shows significant improvement yesterday in her colonic distention and patient appears to be pain free. Surgical recommendations noted and appreciated. She is tolerating her by mouth diet. Rectal tube was removed and will observe for the next 24 hours while she continues her diet. If patient's abdominal distention does not return if she remains at her baseline, patient will be medically stable for discharge within the next 24 hours. Plan/VTE VTE Prophylaxis Ordered?: Yes Plan IVF: Decrease Diet: Continue Current Activity: Continue Current Anticipated Discharge: Assisted Advance Directives: DNR Small bowel obstruction versus obstipation due to rectal stenosis? Imaging reveals severe distention of the rectosigmoid junction. Repeat imaging shows much improvement after decompression via rectum. Surgical recommendations noted and appreciated. We'll observe today without her rectal tube and if her condition remains stable, patient should be ready for discharge - Diet advanced to mechanical soft - hold off on NGT for now - Follow-up surgery consult - consult noted and appreciated - Serial abdominal exams - The patient's condition worsens, stat imaging Parkinson's disease Dementia Resume medications for now given patient is no longer nothing by mouth -Resume carbidopa levodopa as per home dose Recent hip fx Patient noted to be on xarelto 10 mg daily for DVT prophylaxis after her hip surgery. - c/w xarelto 10mg PO daily Diastolic heart failure, not in exacerbation Patient appears to be well compensated at this time. Continue home dose of Lasix - Continue Lasix at home dose Glaucoma - Continue with home medication eyedrops Depression - Continue with sertraline as per home dose VS, I&O, 24H, Fishbone Vital Signs/I&O Vital Signs Date Time Temp Pulse Resp B/P (MAP) Pulse Ox O2 Delivery O2 Flow Rate FiO2 03/21/20 05:44 99.0 86 18 118/77 (91) 96 Room Air 03/19/20 20:30 2.0 I&O- Last 24 Hours up to 6 AM 03/21/20 06:00 Intake Total 720 ml Output Total 1410 ml Balance -690 ml Laboratory Data 24H LABS Laboratory Tests 2 03/21/20 07:07: Nucleated Red Blood Cells % (auto) 0.0, Anion Gap 8, Glomerular Filtration Rate > 60.0, Calcium Level 6.9L, Magnesium Level 1.8 CBC/BMP Laboratory Tests 03/21/20 07:07 JEY DIALLO MD Mar 21, 2020 10:22
[2020-03-21 14:00] VITALS: BP 95/60
[2020-03-21] MEDS ORDERED: NS 500 ML IV ONE ×2 (19:15→21:45)
[2020-03-21] MEDS: LATANOPROST 0.005% OPHTH SOLN 2.5 ML OU SCH (20:37)
[2020-03-21] MEDS: RIVAROXABAN 10 MG TAB (XARELTO) PO SCH (20:37)
[2020-03-21] MEDS: SERTRALINE HCL 50 MG TAB PO SCH (20:37)
[2020-03-21 20:38] VITALS: BP 92/61
[2020-03-21 21:36] VITALS: BP 91/61
[2020-03-21 22:42] VITALS: BP 94/62
[2020-03-22 06:41] VITALS: BP 134/86
[2020-03-22] MEDS: PANTOPRAZOLE 40MG TAB (PROTONIX) PO SCH (09:27)
[2020-03-22] MEDS: FUROSEMIDE 40 MG TAB PO SCH (09:27)
[2020-03-22] MEDS: SINEMET 25-100 MG TAB PO SCH (09:27)
[2020-03-22] MEDS: MAGNESIUM OXIDE 400 MG TAB (MAG-OX) PO SCH (09:28)
[2020-03-22] MEDS: ACETAMINOPHEN 500 MG TAB PO SCH (09:28)
[2020-03-22] MEDS: ALVIMOPAN 12 MG CAPSULE (ENTEREG) PO SCH (09:28)
[2020-03-22] MEDS: PREPARATION H SUPP (HEMORRHOID) PR SCH (09:28)
--- NOTE | 2020-03-22 09:39 | DS.PDOC ---
Discharge Summary General Date of Admission Mar 18, 2020 at 13:33 Date of Discharge 03/22/20 Specialist/Consultants Involve: Jerry Naylor Jr Discharge Summary PROCEDURES PERFORMED DURING STAY: Decompression of gas via rectum. ADMITTING DIAGNOSES: 1. Possible small bowel obstruction. DISCHARGE DIAGNOSES: 1. Large bowel obstruction due to questionable rectal stenosis. COMPLICATIONS/CHIEF COMPLAINT: Small Bowel Obstruction. HISTORY OF PRESENT ILLNESS: 84-year-old female with past medical history of recent hip fracture status post repair, diastolic heart failure, Parkinson's dementia, sent to the hospital for possible small bowel obstruction. As per longterm records, patient has not been feeling well for the last several days. Last bowel movement was reported to be on March 16. Had increasing abdominal distention since then and has complaining of pain this morning. Patient was sent for CT scan which revealed significant distention in the rectosigmoid junction but no free air. The patient to be admitted for management of small bowel obstruction at this time. Unable to obtain further history from patient as she is severely demented and currently in pain. Majority of history was obtained through prior records and longterm transfer paperwork that was sent with patient.. HOSPITAL COURSE: Patient was admitted to the medical floor for further evaluation and management. Surgery consult was called and was assessed at bedside. Surgeon was able to decompress patient's significant distention by placing a rectal tube to past the anal verge and withdrawing significant amount of gas and stool. Patient was monitored for 24 hours and a rectal stool tube was placed. Patient felt much more better and her abdomen return to normal. Patient's diet was slowly advanced which she tolerated well. On day of discharge, abdomen remained soft with no further evidence of obstruction noted at this time. Currently we believe that she may have some minor stenosis there which could be evaluated in the future as outpatient if patient continues to rausch ve issues with severe abdominal distention. Patient is medically stable for discharge back to longterm at this time. She was not started on any new medications. DISCHARGE MEDICATIONS: Please see below. ALLERGIES: Please see below. PHYSICAL EXAMINATION ON DISCHARGE: General Exam: Positive: Alert, No Acute Distress, Other (patient appears to be comfortable today. Does not verbalize much but states that she does not have any stomach pain.) Eye Exam: Positive: PERRLA, Conjunctiva & lids normal, EOMI; Negative: Sclera icteric ENT Exam: Positive: Atraumatic; Negative: Mucous membr. moist/pink (oral mucosa appears to be dry) Neck Exam: Positive: Supple; Negative: JVD Chest Exam: Positive: Clear to auscultation, Normal air movement Heart Exam: Positive: Rate Normal, Regular Rhythm, Normal S1, Normal S2 Abdomen Exam: Positive: Normal bowel sounds, Soft, Other (rectal tube in place draining soft brown stool); Negative: Tenderness Extremity Exam: Positive: Normal pulses; Negative: Clubbing, Edema Skin Exam: Positive: Nl turgor and temperature; Negative: Rash Neuro Exam: Positive: Other (unable to assess full neurological exam due to clinical condition. Patient not following commands.) Psych Exam: Positive: Mood NL, Other (unable to assess mental status due to clinical condition) LABORATORY DATA: Please see below. IMAGING: Repeat abdominal x-ray - No free air. Significant improvement of previously noted severe colonic distention. No current evidence of significant bowel distention. Possible mild atelectasis or infiltrate left lung base. PROGNOSIS: Good ACTIVITY: As tolerated. DIET: No restrictions DISCHARGE PLAN: Discharge back to longterm DISCHARGE INSTRUCTIONS: 1. No new medications were started on discharge 2. Please ensure that patient is not constipated and that she has regular bowel movements daily 3. please follow up with her PCP within 5 to 7 days ITEMS TO FOLLOWUP ON ON OUTPATIENT: 1. General wellness checkup post discharge and constipation. DISCHARGE CONDITION: Really stable for discharge. TIME SPENT ON DISCHARGE: 25 minutes Vital Signs/I&Os Vital Signs Date Time Temp Pulse Resp B/P (MAP) Pulse Ox O2 Delivery O2 Flow Rate FiO2 03/22/20 06:41 97.8 78 16 134/86 (102) 95 Room Air 03/19/20 20:30 2.0 I&O- Last 24 Hours up to 6 AM 03/22/20 05:59 Intake Total 2080 ml Output Total 450 ml Balance 1630 ml Laboratory Data Labs 24H Laboratory Tests 2 03/22/20 06:14: Magnesium Level 2.0 Discharge Medications Scheduled Acetaminophen (Acetaminophen) 500 Mg Tablet, 1,000 MG PO BID, (Reported) Calcium Carbonate/Vitamin D3 (Calcium 500-Vit D3 400 Tablet) 1 Each Tablet, 1 TAB PO DAILY, (Reported) Carbidopa/Levodopa (Carbidopa-Levodopa 25-100 Tab) 1 Each Tablet, 1 TAB PO QID, (Reported) 0800/1200/1600/2000 Denosumab Injection (Prolia) 60 Mg/1 Ml Syringe, 60 MG SC ASDIRECTED, (Reported) EVERY 6 MONTHS Ferrous Sulfate (Ferrous Sulfate) 325 Mg Tablet, 325 MG PO DAILY, (Reported) Furosemide (Furosemide) 40 Mg Tablet, 40 MG PO DAILY, (Reported) 0900 Lactose-Reduced Food (Ensure Enlive) 237 Ml Liquid, 237 ML PO BID, (Reported) Latanoprost (Xalatan) 0.005% 2.5ML Drops, 1 DROP OU QHS, (Reported) Multivitamin,Therapeutic (Thera-Tabs) 1 Each Tablet, 1 TAB PO DAILY, (Reported) Pantoprazole Sodium (Pantoprazole Sodium) 40 Mg Tablet.dr, 40 MG PO DAILY, (Reported) Polyethylene Glycol 3350 (Polyethylene Glycol 3350) 17 Gm Powd.pack, 17 GM PO DAILY, (Reported) Potassium Chloride (Klor-Con M20) 20 Meq Tab.er.prt, 20 MEQ PO DAILY, (Reported) Rivaroxaban (Xarelto) 10 Mg Tablet, 10 MG PO QHS, (Reported) Sennosides/Docusate Sodium (Senna Plus 8.6-50 mg Tablet) 1 Each Tablet, 2 TAB PO QHS, (Reported) Sertraline HCl (Sertraline HCl) 50 Mg Tablet, 50 MG PO QHS, (Reported) Sucralfate (Sucralfate) 1 Gm Tablet, 1 GM PO ACHS, (Reported) Scheduled PRN Bisacodyl (Bisacodyl) 10 Mg Supp.rect, 10 MG UT DAILY PRN for CONSTIPATION, (Reported) Hydrocortisone Acetate (Anusol-Hc) 25 Mg Supp.rect, 25 MG UT Q8H PRN for HEMORRHOIDS, (Reported) Magnesium Hydroxide (Milk of Magnesia) 400 Mg/5 Ml Oral.susp, 30 ML PO for CONSTIPATION, (Reported) Sodium Phosphate,[place]-Dibasic (Fleet Enema) 133 Ml Enema, 1 JH UT DAILY PRN for CONSTIPATION, (Reported) Tramadol HCl (Tramadol HCl) 50 Mg Tablet, 50 MG PO Q4H PRN for PAIN, (Reported) Allergies Coded Allergies: codeine (Verified Adverse Reaction, Intermediate, N/V, 02/21/20) JEY DIALLO MD Mar 22, 2020 09:39
[2020-03-22] MEDS ORDERED: HEMO1SUP10 PR (10:37)
== END 2020-03-22 12:35 | DRG 394 ==
LOC: M MS5PR 13:33
PROVIDERS: ADMIT Internal Medicine; ATTEND Internal Medicine
DX: K62.4 Stenosis of anus and rectum (principal); I50.32 Chronic diastolic (congestive) heart failure; K56.609 Unspecified intestinal obstruction, unspecified as to partial versus complete obstruction; F32.9 Major depressive disorder, single episode, unspecified; D64.9 Anemia, unspecified; G31.83 Neurocognitive disorder with Lewy bodies; H40.9 Unspecified glaucoma; H91.93 Unspecified hearing loss, bilateral; F02.80 Dementia in other diseases classified elsewhere, unspecified severity, without behavioral disturbance, psychotic disturbance, mood disturbance, and anxiety; Z79.01 Long term (current) use of anticoagulants; Z79.899 Other long term (current) drug therapy; Z88.5 Allergy status to narcotic agent; Z87.81 Personal history of (healed) traumatic fracture

== ENCOUNTER → 2020-03-18 | Outpatient (CLI) | payer MEDICARE ==
[~2020-03-18] MED LIST changes: +BISA10SU27 PR; +ENSU1LIQ36 PO; +FLEEENE12 PR; +GASTROGRAFIN SOLUTION 30ML (Q9963) As Ordered ONE; +ISOVUE-370 76% 100ML VIAL As Ordered ONE; +MAGN400O49 PO; +PEG1POW PO; +SENN1TAB94 PO; +THERTAB52 PO
--- NOTE | 2020-03-18 11:22 | REP ---
CT ABDOMEN AND PELVIS WITH ORAL AND IV CONTRAST: TECHNIQUE: Axial contrast enhanced images from the lung bases to the pubic symphysis using 100 mL Isovue 370 intravenous contrast material with multiplanar reformations. COMPARISON: 08/29/2017 Visualized lung bases demonstrate mild interstitial fibrotic change. No liver mass is seen. There are two gallstones in the gallbladder, which does not appear to be inflamed, with no wall thickening or edema. The gallstones measure about 2 cm in diameter. Spleen is normal in size with no intrinsic abnormality. There is mild left adrenal gland thickening. There is a right adrenal adenoma unchanged. This measures about 2.7 cm in maximum diameter. The pancreas demonstrates no mass. Kidneys are unremarkable with no hydronephrosis. There is mild atherosclerotic calcification of the abdominal aorta without aneurysm. There is an IVC filter present. There is no adenopathy. There is no free air. Tiny amount of fluid and mild edema is seen in the mesentery. There appears to be some degree of wall thickening noted in the distal rectum and anus. This suggest inflammatory or neoplastic disease. There is severe distention of the rectosigmoid colon, filled predominantly with air with a small amount of fecal material in the distal rectum. Diameter of the upper rectosigmoid colon reaches 14 cm. More proximal bowel loops are not significantly distended. Oral contrast is seen in the ileum. The appendix is normal. NO pelvic mass is seen. Urinary bladder is mildly distended and grossly unremarkable. There are degenerative changes of the spine. There is metallic internal fixation in the right femur proximal aspect for a fracture at that location. IMPRESSION: There appears to be some degree of wall thickening of the distal rectum and anus suggesting inflammatory or neoplastic disease. Rectosigmoid colon is severely distended, predominantly with air. There is no free air. There is a tiny amount of fluid and mild edema in the mesentery. More proximal bowel loops are not significantly distended. There are two gallstones in a noninflamed gallbladder. Stable right adrenal adenoma. Electronically Signed by Rhett Hart MD 03/18/2020 12:54 P
== END ==
LOC: M RAD 08:00
PROVIDERS: ATTEND Physician Assistant
DX: R14.0 Abdominal distension (gaseous) (principal)
CPT/HCPCS: 74177; Q9963; Q9967

== ENCOUNTER → 2020-03-18 | Outpatient (REF) | payer MEDICARE ==
[~2020-03-18] MED LIST changes: -GASTROGRAFIN SOLUTION 30ML (Q9963) As Ordered ONE; -ISOVUE-370 76% 100ML VIAL As Ordered ONE
[2020-03-18 13:19] LABS: HEMATOCRIT 34.9 % (36.0-47.0); MEAN CORPUSCULAR HEMOGLOBIN 22.2 pg (27.0-33.0); MEAN CORPUSCULAR HGB CONC 31.5 g/dl (32.0-36.5); MEAN CORPUSCULAR VOLUME 70.4 fl (80.0-96.0); PLATELET COUNT, AUTOMATED 595 10^3/uL (150-450); RED BLOOD COUNT 4.96 10^6/uL (4.00-5.40)
[2020-03-18 13:43] LABS: BLOOD UREA NITROGEN 20 MG/DL (7-18); CALCIUM LEVEL 8.2 MG/DL (8.8-10.2); CARBON DIOXIDE LEVEL 25 MEQ/L (21-32); CHLORIDE LEVEL 99 MEQ/L (98-107); CREATININE FOR GFR 0.79 MG/DL (0.55-1.30); GLOMERULAR FILTRATION RATE > 60.0 (>32); GLUCOSE, FASTING 100 MG/DL (70-100); POTASSIUM SERUM 3.8 MEQ/L (3.5-5.1); SODIUM LEVEL 135 MEQ/L (136-145)
== END ==
PROVIDERS: ATTEND Internal Medicine
DX: D64.9 Anemia, unspecified (principal)

== ENCOUNTER 2020-03-26 16:36 | Observation (INO) | payer MEDICARE ==
[~2020-03-26] VITALS: Ht 162.6 cm; Wt 55.6 kg
[~2020-03-26 16:36] MED LIST changes: +BISA10SU27 PR; +ENSU1LIQ36 PO; +FLEEENE12 PR; +HEMO1SUP10 PR; +MAGN400O49 PO; +PEG1POW PO; +SENN1TAB94 PO; +THERTAB52 PO
[2020-03-26] MEDS ORDERED: NS 1,000 ML IV SCH (16:43)
[2020-03-26 17:24] LABS: BASO % 0.2 % (0.0-1.0); EOS % 0.2 % (0.0-3.0); HEMATOCRIT 36.7 % (36.0-47.0); HEMOGLOBIN 11.2 g/dl (12.0-15.5); LYMPH # 2.2 10^3/uL (1.5-5.0); LYMPH % 20.7 % (24.0-44.0); MEAN CORPUSCULAR HEMOGLOBIN 21.1 pg (27.0-33.0); MEAN CORPUSCULAR HGB CONC 30.5 g/dl (32.0-36.5); MEAN CORPUSCULAR VOLUME 69.1 fl (80.0-96.0); MONO # 0.8 10^3/uL (0.0-0.8); MONO % 7.8 % (0.0-5.0); NEUTROPHILS # 7.4 10^3/uL (1.5-8.5); NEUTROPHILS % 70.2 % (36.0-66.0); PLATELET COUNT, AUTOMATED 500 10^3/uL (150-450); RED BLOOD COUNT 5.31 10^6/uL (4.00-5.40); WHITE BLOOD COUNT 10.6 10^3/uL (4.0-10.0)
[2020-03-26] MEDS ORDERED: LACT10SO3 PO (17:26)
--- NOTE | 2020-03-26 17:28 | REP ---
Clinical: Abdominal pain. Technique: Two supine views of the abdomen and pelvis. Findings: Markedly distended loops of small and large bowel suggest ileus. Differential diagnosis would include large bowel obstruction as well as [place]'s syndrome. Gallstones in the right upper quadrant are identified. IVC filter noted. Skeletal structures demonstrate age-related osteopenia and degenerative changes. Impression: Markedly distended loops of small large bowel. Differential diagnosis includes ileus, [place]'s syndrome, and less likely distal mechanical large bowel obstruction. Electronically Signed by León Brooks MD 03/26/2020 05:18 P
[2020-03-26] MEDS ORDERED: NON-325T5 PO (17:43)
[2020-03-26] MEDS ORDERED: OYST500T91 PO (17:43)
[2020-03-26 17:46] LABS: ALBUMIN 3.2 GM/DL (3.2-5.2); ALT/SGPT 12 U/L (12-78); BILIRUBIN,DIRECT 0.2 MG/DL (0.0-0.2); BILIRUBIN,TOTAL 0.7 MG/DL (0.2-1.0); BLOOD UREA NITROGEN 25 MG/DL (7-18); CALCIUM LEVEL 9.6 MG/DL (8.8-10.2); CARBON DIOXIDE LEVEL 30 MEQ/L (21-32); CHLORIDE LEVEL 98 MEQ/L (98-107); CREATININE FOR GFR 0.67 MG/DL (0.55-1.30); GLOMERULAR FILTRATION RATE > 60.0 (>32); GLUCOSE, FASTING 91 MG/DL (70-100); LIPASE 247 U/L (73-393); POTASSIUM SERUM 4.6 MEQ/L (3.5-5.1); SODIUM LEVEL 135 MEQ/L (136-145); TOTAL PROTEIN 6.8 GM/DL (6.4-8.2)
[2020-03-26] MEDS ORDERED: ONDANSETRON 4MG/2ML VIAL IV PRN (18:15)
--- NOTE | 2020-03-26 18:30 | HPEPDOC ---
[facility] Medical History & Physical Date of Admission March 26, 2020 Date of Service: March 26, 2020 Primary Care Physician: Paige Evans Attending Physician: HORACE REAL MD History and Physical PRIMARY CARE PROVIDER: Paige Evans ATTENDING: Dr. Horace Real CHIEF COMPLAINT: Abdominal pain. HISTORY OF PRESENT ILLNESS: Patient is an 84 year old female presenting with chief complaint of abdominal pain. History obtained from ED provider and [facility] nursing staff. 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 She was brought over from the [facility] due to abdominal distention and decreased oral intake. Work up in the ED showed distended loops of small and large bowel concerning for similar bowel obstruction she had during her last admission. ED provider reached out to Dr. Naylor who recommended rectal tube placement. PAST MEDICAL HISTORY: diastolic CHF Parkinson's dementia GI bleed hip fracture PAST SURGICAL HISTORY: orthopedic repair of hip fx 02/24/20 SOCIAL HISTORY: Denies smoking, alcohol, drug history. Lives at [facility]. FAMILY HISTORY: Unable to obtain due to clinical condition. ALLERGIES: Please see below. REVIEW OF SYSTEMS: Unreliable secondary to dementia. Patient admits to discomfort, but will not say where on questioning or during physical exam. HOME MEDICATIONS: Please see below. PHYSICAL EXAMINATION: Vitals: (see below) General: Laying on left side holding hand rail with eyes shut and appears to be mild-moderately uncomfortable HEENT: Normocephalic, atraumatic. EOMI. No scleral icterus. Moist mucous membranes. No pharyngeal erythema or uvular deviation. Neck: No JVD, lymphadenopathy, or thyromegaly. Cardiac: RRR, Normal S1 and S2, No murmurs, gallops, rubs. Pulm: Clear to auscultation b/l. Symmetric thorax. No wheezing, crackles, rhonchi Abd: Bowel Sounds present. Abdomen is soft, non-tender to palpation, mild- moderately distended. No guarding, rebound tenderness, or rigidity. Ext: No edema or cyanosis Neuro: Alert, oriented to person, place, not time or situation. Unable to participate in remainder of physical exam. LABORATORY DATA: See below. IMAGIN03/26/2020 Abdomen XR: Markedly distended loops of small large bowel. Differential diagnosis includes ileus, [place]'s syndrome, and less likely distal mechanical large bowel obstruction. MICROBIOLOGY: Please see below. ASSESSMENT/PLAN: #. 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 -Surgery consulted, recommendations appreciated -NPO except sips/chips, can advance diet based on patient's clinical improvement -Per surgery, patient will likely need colorectal surgeon to determine if she is a candidate for diverting colostomy vs botox treatment. Surgery's plan is similar to what it was during her last admission with NS irrigation Q4H. #. Parkinson's disease w/ Dementia - Holding home meds #. Recent hip fx Patient noted to be on xarelto 10 mg daily for DVT prophylaxis after her hip surgery. - c/w xarelto 10mg PO daily #. Diastolic heart failure, not in exacerbation - patient compensated, can consider IV lasix if needed, but will keep patient off it as she is NPO for now. Glaucoma - Continue with home medication eyedrops Depression - Continue with sertraline as per home dose -DVT prophy: xarelto Attending attestation: I evaluated and examined the patient in person; I discussed the care with Resident in detail and agree with the plan above. Vital Signs Vital Signs Date Time Temp Pulse Resp B/P (MAP) Pulse Ox O2 Delivery O2 Flow Rate FiO2 03/26/20 18:00 78 129/80 (96) 97 03/26/20 17:20 18 Room Air 03/26/20 16:54 97.2 Laboratory Data Labs 24H Laboratory Tests 2 03/26/20 17:01: Immature Granulocyte % (Auto) 0.9, Neutrophils (%) (Auto) 70.2H, Lymphocytes (%) (Auto) 20.7L, Monocytes (%) (Auto) 7.8H, Eosinophils (%) (Auto) 0.2, Basophils (%) (Auto) 0.2, Neutrophils # (Auto) 7.4, Lymphocytes # (Auto) 2.2, Monocytes # (Auto) 0.8, Eosinophils # (Auto) 0.0, Basophils # (Auto) 0.0, Nucleated Red Blood Cells % (auto) 0.2H, Anion Gap 7L, Glomerular Filtration Rate > 60.0, Calc ium Level 9.6, Total Bilirubin 0.7, Direct Bilirubin 0.2, Aspartate Amino Transf (AST/SGOT) 13, Alanine Aminotransferase (ALT/SGPT) 12, Alkaline Phosphatase 188H, Total Protein 6.8, Albumin 3.2, Albumin/Globulin Ratio 0.89L, Lipase 247 03/26/20 17:02: POC Glucose (Misc Panel) 103, POC Sodium (Misc Panel) 135L, POC Potassium (Misc Panel) 4.4, POC Chloride (Misc Panel) 94L, POC Total CO2 (Misc Panel) 31.0H, POC Blood Urea Nitrogen (Misc Panel 25, POC Ionized Calcium (Misc Panel) 5.1, POC Creatinine (Misc Panel) 0.8, POC Hematocrit (Misc Panel) 39.0 CBC/BMP Laboratory Tests 03/26/20 17:01 Home Medications Scheduled Acetaminophen (Acetaminophen) 500 Mg Tablet, 1,000 MG PO BID Calcium Carbonate/Vitamin D3 (Calcium 500-Vit D3 200 Tablet) 1 Each Tablet, 1 TAB PO DAILY Carbidopa/Levodopa (Carbidopa-Levodopa 25-100 Tab) 1 Each Tablet, 1 TAB PO QID 0800/1200/1600/2000 Denosumab Injection (Prolia) 60 Mg/1 Ml Syringe, 60 MG SC ASDIRECTED EVERY 6 MONTHS Ferrous Sulfate (Ferrous Sulfate) 325 Mg Tablet, 325 MG PO DAILY Furosemide (Furosemide) 40 Mg Tablet, 40 MG PO DAILY 0900 Lactulose (Lactulose) 10 Gm/15 Ml Solution, 30 GM PO DAILY Latanoprost (Xalatan) 0.005% 2.5ML Drops, 1 DROP OU QHS Pantoprazole Sodium (Pantoprazole Sodium) 40 Mg Tablet.dr, 40 MG PO DAILY Polyethylene Glycol 3350 (Polyethylene Glycol 3350) 17 Gm Powd.pack, 17 GM PO DAILY Potassium Chloride (Klor-Con M20) 20 Meq Tab.er.prt, 20 MEQ PO DAILY Rivaroxaban (Xarelto) 10 Mg Tablet, 10 MG PO QHS Sennosides/Docusate Sodium (Senna Plus 8.6-50 mg Tablet) 1 Each Tablet, 2 TAB PO QHS Sertraline HCl (Sertraline HCl) 50 Mg Tablet, 50 MG PO QHS Sucralfate (Sucralfate) 1 Gm Tablet, 1 GM PO ACHS Scheduled PRN Acetaminophen (Acetaminophen) 325 Mg Tablet, 650 MG PO Q4H PRN for PAIN / FEVER Bisacodyl (Bisacodyl) 10 Mg Supp.rect, 10 MG OK DAILY PRN for CONSTIPATION Hydrocortisone Acetate (Anusol-Hc) 25 Mg Supp.rect, 25 MG OK Q8H PRN for HEMORR HOIDS Magnesium Hydroxide (Milk of Magnesia) 400 Mg/5 Ml Oral.susp, 30 ML PO DAILY PRN for CONSTIPATION Sodium Phosphate,[place]-Dibasic (Fleet Enema) 133 Ml Enema, 1 JH OK DAILY PRN for CONSTIPATION Allergies Coded Allergies: codeine (Verified Adverse Reaction, Intermediate, N/V, 02/21/20) A-FIB/CHADSVASC A-FIB History Current/History of A-Fib/PAF?: No GME ATTESTATION GME ATTESTATION My faculty preceptor for this patient encounter was physically present during the encounter and was fully available. All aspects of the patient interview, examination, medical decision making process, and medical care plan development were reviewed and approved by the faculty preceptor. The faculty preceptor is aware and concurs with the plan as stated in the body of this note and will attest to such by his/her cosignature. ISA CARCAMO DO March 26, 2020 18:30 HORACE REAL MD March 30, 2020 19:25
[2020-03-26 18:43] VITALS: BP 133/79
[2020-03-26] MEDS ORDERED: ACETAMINOPHEN TAB 650MG DOSE (2X325MG) PO PRN (19:00)
[2020-03-26] MEDS ORDERED: SINEMET 25-100 MG TAB PO SCH (20:00)
[2020-03-26] MEDS: SERTRALINE HCL 50 MG TAB PO SCH (20:56)
[2020-03-26] MEDS: LATANOPROST 0.005% OPHTH SOLN 2.5 ML OU SCH (20:56)
[2020-03-26] MEDS ORDERED: RIVAROXABAN 10 MG TAB (XARELTO) PO SCH (21:00)
[2020-03-26 22:00] VITALS: BP 135/80
[2020-03-27 06:00] VITALS: BP 110/69
[2020-03-27 06:00] LABS: HEMATOCRIT 28.9 % (36.0-47.0); MEAN CORPUSCULAR HEMOGLOBIN 21.4 pg (27.0-33.0); MEAN CORPUSCULAR HGB CONC 31.1 g/dl (32.0-36.5); MEAN CORPUSCULAR VOLUME 68.6 fl (80.0-96.0); RED BLOOD COUNT 4.21 10^6/uL (4.00-5.40); WHITE BLOOD COUNT 6.3 10^3/uL (4.0-10.0)
[2020-03-27 06:14] LABS: PLATELET COUNT, AUTOMATED 369 10^3/uL (150-450)
[2020-03-27 06:29] LABS: BLOOD UREA NITROGEN 21 MG/DL (7-18); CALCIUM LEVEL 8.3 MG/DL (8.8-10.2); CARBON DIOXIDE LEVEL 30 MEQ/L (21-32); CHLORIDE LEVEL 101 MEQ/L (98-107); CREATININE FOR GFR 0.49 MG/DL (0.55-1.30); GLOMERULAR FILTRATION RATE > 60.0 (>32); GLUCOSE, FASTING 76 MG/DL (70-100); SODIUM LEVEL 138 MEQ/L (136-145)
[2020-03-27 14:00] VITALS: BP 112/69
--- NOTE | 2020-03-27 14:50 | IPNPDOC ---
Text Note Date of Service The patient was seen on 03/27/20. NOTE SUBJECTIVE: 84 year old female recently admitted/discharged for large bowel ob struction presented with abdominal pain concerning for similar etiology. No acute events overnight per staff, she seems comfortable in bed and was sleeping when I entered the room. She states she is uncomfortable but despite palpation all over she is not able to localize any symptoms. OBJECTIVE: PHYSICAL EXAMINATION: Vitals: (see below) General: Laying on left side sleeping. HEENT: Normocephalic, atraumatic. EOMI. No scleral icterus. Moist mucous membranes. No pharyngeal erythema or uvular deviation. Neck: No JVD, lymphadenopathy, or thyromegaly. Cardiac: RRR, Normal S1 and S2, No murmurs, gallops, rubs. Pulm: Clear to auscultation b/l. Symmetric thorax. No wheezing, crackles, rhonchi Abd: Bowel Sounds present. Abdomen is soft, non-tender to palpation, non- distended. No guarding, rebound tenderness, or rigidity. Ext: No edema or cyanosis Neuro: Alert, oriented to person, place, not time or situation. Unable to participate in remainder of physical exam. No focal neuro deficits. LABORATORY DATA, MICROBIOLOGY: Please see below. IMAGING STUDIES: ASSESSMENT/PLAN: #. 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 -Surgery consulted, recommendations appreciated -NPO except sips/chips, can advance diet based on patient's clinical improvement -Per surgery, patient will likely need to go back to [facility] with a rectal tube and be evaluated by a colorectal surgeon outpatient to determine if she is a candidate for diverting colostomy vs botox treatment. Surgery's plan is similar to what it was during her last admission with NS irrigation Q4H. #. Parkinson's disease w/ Dementia - Holding home meds #. Recent hip fx Patient noted to be on xarelto 10 mg daily for DVT prophylaxis after her hip surgery. - c/w xarelto 10mg PO daily #. Diastolic heart failure, not in exacerbation - patient compensated, can consider IV lasix if needed, but will keep patient off it as she is NPO for now. Glaucoma - Continue with home medication eyedrops Depression - Continue with sertraline as per home dose -DVT prophy: xarelto Attending attestation: I evaluated and examined the patient in person; I discussed the care with Resident in detail and agree with the plan above. VS,Fishbone, I+O VS, Fishbone, I+O Laboratory Tests 03/26/20 17:01 03/27/20 05:39 Vital Signs Date Time Temp Pulse Resp B/P (MAP) Pulse Ox O2 Delivery O2 Flow Rate FiO2 03/27/20 14:00 98.0 73 18 112/69 (83) 96 Room Air I&O- Last 24 Hours up to 6 AM 03/27/20 06:00 Intake Total 120 ml Output Total 850 ml Balance -730 ml GME ATTESTATION GME ATTESTATION My faculty preceptor for this patient encounter was physically present during the encounter and was fully available. All aspects of the patient interview, examination, medical decision making process, and medical care plan development were reviewed and approved by the faculty preceptor. The faculty preceptor is aware and concurs with the plan as stated in the body of this note and will attest to such by his/her cosignature. ISA CARCAMO DO March 27, 2020 14:50 HORACE GILBERT MD March 30, 2020 19:39
[2020-03-27] MEDS: ENOXAPARIN 40MG/0.4ML SYRINGE (J1650 PER 10MG) SC SCH (15:25)
[2020-03-27] MEDS: D5W/0.45% SODIUM CHLORIDE 1,000 ML IV SCH (15:33)
[2020-03-27] MEDS ORDERED: MORPHINE 2 MG/ML 1ML VIAL (J2270) IV PRN (16:00)
--- NOTE | 2020-03-27 16:01 | IPN ---
DATE: 03/27/2020 The patient has had some significant improvement overnight. Her abdominal distension is significantly improved. She has no abdominal pain or discomfort and overall seems to be making some good progress. No fevers or chills. The patient has had her nasogastric (NG) tube out and had started a clear liquid diet yesterday and tolerated a clear liquid diet and is wondering about progression of diet at this time. On his physical examination, her vitals are stable. She has been afebrile. Blood pressure has been good and her white count is normal. Her abdomen is soft, nondistended. She still has some tenderness around the previous incisional/hernia repairs in the upper abdomen and I can feel the mesh through the abdominal wall but this sounds as though this is chronic abdominal pain issues that are persistent issues at this time and not truly consistent with any obstructive-looking picture. IMPRESSION AND PLAN: The patient that is making some slow progress. I would recommend increasing her diet to a regular diet and if she tolerates a regular diet, discharge to home tomorrow with followup in 1-2 weeks.
--- NOTE | 2020-03-27 16:07 | CR ---
DATE OF CONSULTATION: 03/26/2020 The patient is being readmitted for a large bowel obstruction secondary to anal stenosis/rectal stenosis. At this point, she would did not have access to a rectal tube at her [facility] and thus is being readmitted for rectal tube insertion. She has had progressive abdominal distension without bowel movements over the last 3 days. On her x-ray exam, she had large as well as small-bowel distension, very similar to her previous admission; however, this is much less than previous admission presentation. PAST MEDICAL HISTORY: Significant for: 1. History of Parkinson's dementia. 2. Congestive heart failure. 3. Gastrointestinal (GI) bleed. 4. Hip fracture. 5. Orthopedic repair of her hip fracture. MEDICATIONS: Include Tylenol, calcium, carbidopa/levodopa Prolia, iron supplements, furosemide, lactulose, Xalatan drops for her eyes, pantoprazole, MiraLax, Klor-Con Xarelto, senna plus, sertraline, and Carafate. PHYSICAL EXAMINATION: Reveals a pleasant, elderly female who looks stated age. HEENT is unremarkable. Neck is supple without adenopathy. Lungs are clear anteriorly. Heart is regular with a few irregular beats. Abdomen is distended, tympanitic, although it is much less than it was previously without any peritoneal signs. No guarding. Her abdominal discomfort is much less than it was last admission. IMPRESSION AND PLAN: The patient has evidence of persistence of her an anal stenosis issues. I do feel that a rectal tube is warranted at this time; however, long-term plans, I would recommend that she get a colorectal surgery evaluation as an outpatient, and the big question for her is, obviously if she is not a candidate for any intervention from a colorectal standpoint/in the perianal area, then proceeding with a laparoscopic diverting colostomy is reasonable; however, that would be a relatively significant step in this individual who had plans or did desire going back to assisted living. From a confusion standpoint and advancing dementia standpoint, the practitioner at the [facility] felt that she was an individual that would be unlikely to progress her activity level and mentation adequately to be discharged to an assisted living facility. In any case, at this point treatment with a rectal tube is warranted. We will see how she is doing in the morning then reassess.
[2020-03-27] MEDS: SERTRALINE HCL 50 MG TAB PO SCH (20:21)
[2020-03-27] MEDS: LATANOPROST 0.005% OPHTH SOLN 2.5 ML OU SCH (20:21)
[2020-03-27 22:00] VITALS: BP 98/56
[2020-03-28 05:14] LABS: HEMATOCRIT 27.8 % (36.0-47.0); HEMOGLOBIN 8.7 g/dl (12.0-15.5); MEAN CORPUSCULAR HEMOGLOBIN 21.4 pg (27.0-33.0); MEAN CORPUSCULAR HGB CONC 31.3 g/dl (32.0-36.5); MEAN CORPUSCULAR VOLUME 68.5 fl (80.0-96.0); PLATELET COUNT, AUTOMATED 346 10^3/uL (150-450); RED BLOOD COUNT 4.06 10^6/uL (4.00-5.40); WHITE BLOOD COUNT 6.9 10^3/uL (4.0-10.0)
[2020-03-28 05:36] LABS: BLOOD UREA NITROGEN 18 MG/DL (7-18); CALCIUM LEVEL 7.2 MG/DL (8.8-10.2); CARBON DIOXIDE LEVEL 30 MEQ/L (21-32); CHLORIDE LEVEL 104 MEQ/L (98-107); CREATININE FOR GFR 0.37 MG/DL (0.55-1.30); GLOMERULAR FILTRATION RATE > 60.0 (>32); GLUCOSE, FASTING 83 MG/DL (70-100); POTASSIUM SERUM 3.2 MEQ/L (3.5-5.1); SODIUM LEVEL 140 MEQ/L (136-145)
[2020-03-28 06:00] VITALS: BP 113/65
[2020-03-28] MEDS: D5W/0.45% SODIUM CHLORIDE 1,000 ML IV SCH (06:04)
[2020-03-28] MEDS: POTASSIUM CHLORIDE 10 MEQ SR TABLET PO SCH ×2 (08:53→13:13)
[2020-03-28] MEDS: ENOXAPARIN 40MG/0.4ML SYRINGE (J1650 PER 10MG) SC SCH (08:53)
[2020-03-28 14:00] VITALS: BP 118/77
--- NOTE | 2020-03-28 16:50 | IPNPDOC ---
Date Seen The patient was seen on 03/28/20. Progress Note SUBJECTIVE: 84-year-old female with advanced dementia, congestive heart failure, GI bleed, and hip fracture, was admitted for recurrent alopecia secondary to anal stenosis/stricture. Patient had rectal tube placed in the emergency department with great relief and complete resolution of bowel obstruction. She is now tolerating a regular diet, pleasantly demented, without any complaints at this time. PHYSICAL EXAMINATION: VITAL SIGNS: Please see below. GENERAL: Frail HEENT: Normocephalic, atraumatic, moist mucous membranes NECK: Supple CARDIOVASCULAR EXAMINATION: S1, S2 RESPIRATORY EXAMINATION: Scattered rhonchi, no wheezing ABDOMINAL EXAMINATION: Soft, mild diffuse tenderness, nondistended, positive bowel sounds EXTREMITIES: Range of motion intact SKIN: No rash NEUROLOGICAL EXAMINATION: no focal deficits PSYCHIATRIC EXAMINATION: Calm LABORATORY DATA, IMAGING STUDIES, MICROBIOLOGY: Please see below. ASSESSMENT AND PLAN: 84-year-old female with multiple medical comorbidities, was admitted for recurrent bowel obstruction secondary to anal stricture/stenosis. PROBLEMS: 1. Bowel obstruction: Secondary to anal stricture/stenosis, complete resolution with insertion of rectal tube, now comfortable and tolerating a regular diet, plan for discharge with rectal tube tomorrow and outpatient follow-up with colorectal surgery. Gen. surgery evaluation appreciated DVT prophylaxis: Lovenox VS, I&O, 24H, Fishbone Vital Signs/I&O Vital Signs Date Time Temp Pulse Resp B/P (MAP) Pulse Ox O2 Delivery O2 Flow Rate FiO2 03/28/20 14:00 97.3 77 19 118/77 (91) 98 Room Air I&O- Last 24 Hours up to 6 AM 03/28/20 06:00 Intake Total 240 ml Output Total 1350 ml Balance -1110 ml Laboratory Data 24H LABS Laboratory Tests 2 03/28/20 04:46: Nucleated Red Blood Cells % (auto) 0.0, Anion Gap 6L, Glomerular Filtration Rate > 60.0, Calcium Level 7.2L CBC/BMP Laboratory Tests 03/28/20 04:46 HORACE GILBERT MD March 28, 2020 16:50
[2020-03-28] MEDS: DOCUSATE SODIUM 100 MG CAP PO SCH (20:12)
[2020-03-28] MEDS: SENNA 8.6 MG TAB (SENOKOT) PO SCH (20:13)
[2020-03-28] MEDS: SERTRALINE HCL 50 MG TAB PO SCH (20:13)
[2020-03-28] MEDS: LATANOPROST 0.005% OPHTH SOLN 2.5 ML OU SCH (20:13)
[2020-03-28 22:00] VITALS: BP 142/82
[2020-03-29 06:00] VITALS: BP 131/86
[2020-03-29 07:24] LABS: BASO % 0.3 % (0.0-1.0); EOS % 0.4 % (0.0-3.0); HEMATOCRIT 31.2 % (36.0-47.0); HEMOGLOBIN 9.7 g/dl (12.0-15.5); LYMPH # 1.6 10^3/uL (1.5-5.0); LYMPH % 22.2 % (24.0-44.0); MEAN CORPUSCULAR HEMOGLOBIN 21.3 pg (27.0-33.0); MEAN CORPUSCULAR HGB CONC 31.1 g/dl (32.0-36.5); MEAN CORPUSCULAR VOLUME 68.6 fl (80.0-96.0); MONO # 0.7 10^3/uL (0.0-0.8); MONO % 9.6 % (0.0-5.0); NEUTROPHILS # 4.7 10^3/uL (1.5-8.5); NEUTROPHILS % 66.8 % (36.0-66.0); PLATELET COUNT, AUTOMATED 369 10^3/uL (150-450); RED BLOOD COUNT 4.55 10^6/uL (4.00-5.40); WHITE BLOOD COUNT 7.1 10^3/uL (4.0-10.0)
[2020-03-29 07:53] LABS: BLOOD UREA NITROGEN 14 MG/DL (7-18); CALCIUM LEVEL 7.7 MG/DL (8.8-10.2); CARBON DIOXIDE LEVEL 26 MEQ/L (21-32); CHLORIDE LEVEL 105 MEQ/L (98-107); CREATININE FOR GFR 0.35 MG/DL (0.55-1.30); GLOMERULAR FILTRATION RATE > 60.0 (>32); GLUCOSE, FASTING 81 MG/DL (70-100); POTASSIUM SERUM 4.6 MEQ/L (3.5-5.1); SODIUM LEVEL 137 MEQ/L (136-145)
[2020-03-29] MEDS: SENNA 8.6 MG TAB (SENOKOT) PO SCH (08:15)
[2020-03-29] MEDS: DOCUSATE SODIUM 100 MG CAP PO SCH (08:15)
[2020-03-29] MEDS: ENOXAPARIN 40MG/0.4ML SYRINGE (J1650 PER 10MG) SC SCH (08:16)
--- NOTE | 2020-03-29 10:27 | IPN ---
DATE: 03/28/2020 The patient has had some significant stool out and her abdominal distention has significantly improved as well overall. She has not had any nausea or vomiting, although she has had a very poor by mouth intake. The abdomen is softly distended. Much more benign appearing overall, still has some mild distention with some tympany throughout, but much better than it was previously. IMPRESSION AND PLAN: Patient has resolved/resolving her current lower GI issues, although she has a significant problem with a failure to thrive at this point and, more importantly, my concern is end status and plans for her after discharge. As I had mentioned earlier, outpatient evaluation of the anal sphincter is a very reasonable next approach and/or an evaluation by colorectal surgery. However, if she is having this rapid progressive decline, other options may be required or I would recommend considering a possible diverting colostomy for her or making her comfort care, for this I would defer the discussion to the primary care/her longstanding primary care physician. Otherwise, continue with the rectal tube at this time as warranted, although I anticipate this can be removed at any time and she can have this placed on a p.r.n. basis. She will need to continue with significant stool softeners to keep the stools relatively soft so that they are able to be evacuated much easier. I will make sure that she is restarted on her usual stool softeners.
[2020-03-29 14:00] VITALS: BP 106/67
== END 2020-03-29 14:57 ==
LOC: EDBD 16:36 → M ED 16:36 → M ED INP 17:54 → ENRESERV 18:08 → M MSPAV 18:35
PROVIDERS: ADMIT Internal Medicine; ATTEND Family Medicine
DX: K56.609 Unspecified intestinal obstruction, unspecified as to partial versus complete obstruction (principal); K62.4 Stenosis of anus and rectum; R63.0 Anorexia; I50.32 Chronic diastolic (congestive) heart failure; F02.80 Dementia in other diseases classified elsewhere, unspecified severity, without behavioral disturbance, psychotic disturbance, mood disturbance, and anxiety; G20 Parkinson's disease; Z87.81 Personal history of (healed) traumatic fracture; H40.9 Unspecified glaucoma; Z87.19 Personal history of other diseases of the digestive system; F32.9 Major depressive disorder, single episode, unspecified; Z79.899 Other long term (current) drug therapy; Z79.01 Long term (current) use of anticoagulants; Z88.5 Allergy status to narcotic agent
CPT/HCPCS: 36415; 74018; 80047; 80048; 80076; 83690; 85025; 85027; 96360; 96361; 96372; 99284; G0378; J1650

== ENCOUNTER → 2020-04-05 | Outpatient (REF) | payer MEDICARE ==
[~2020-04-05] MED LIST changes: +LACT10SO3 PO; +NON-325T5 PO; +OYST500T91 PO
[2020-04-05 10:00] LABS: HEMATOCRIT 35.3 % (36.0-47.0); HEMOGLOBIN 11.3 g/dl (12.0-15.5); MEAN CORPUSCULAR HEMOGLOBIN 21.6 pg (27.0-33.0); MEAN CORPUSCULAR VOLUME 67.6 fl (80.0-96.0); PLATELET COUNT, AUTOMATED 501 10^3/uL (150-450); RED BLOOD COUNT 5.22 10^6/uL (4.00-5.40); WHITE BLOOD COUNT 9.1 10^3/uL (4.0-10.0)
[2020-04-05 10:23] LABS: BLOOD UREA NITROGEN 16 MG/DL (7-18); CALCIUM LEVEL 8.9 MG/DL (8.8-10.2); CARBON DIOXIDE LEVEL 29 MEQ/L (21-32); CHLORIDE LEVEL 100 MEQ/L (98-107); CREATININE FOR GFR 0.48 MG/DL (0.55-1.30); GLOMERULAR FILTRATION RATE > 60.0 (>32); GLUCOSE, FASTING 81 MG/DL (70-100); POTASSIUM SERUM 4.8 MEQ/L (3.5-5.1); SODIUM LEVEL 135 MEQ/L (136-145)
== END ==
PROVIDERS: ATTEND Internal Medicine
DX: D64.9 Anemia, unspecified (principal)

== ENCOUNTER → 2020-04-12 | Outpatient (REF) ==
[2020-04-12 11:45] LABS: HEMATOCRIT 34.1 % (36.0-47.0); HEMOGLOBIN 10.5 g/dl (12.0-15.5); MEAN CORPUSCULAR HGB CONC 30.8 g/dl (32.0-36.5); MEAN CORPUSCULAR VOLUME 68.1 fl (80.0-96.0); PLATELET COUNT, AUTOMATED 458 10^3/uL (150-450); RED BLOOD COUNT 5.01 10^6/uL (4.00-5.40); WHITE BLOOD COUNT 11.9 10^3/uL (4.0-10.0)
[2020-04-12 12:05] LABS: BLOOD UREA NITROGEN 19 MG/DL (7-18); CALCIUM LEVEL 8.7 MG/DL (8.8-10.2); CARBON DIOXIDE LEVEL 27 MEQ/L (21-32); CHLORIDE LEVEL 100 MEQ/L (98-107); CREATININE FOR GFR 0.61 MG/DL (0.55-1.30); GLOMERULAR FILTRATION RATE > 60.0 (>32); GLUCOSE, FASTING 114 MG/DL (70-100); POTASSIUM SERUM 4.7 MEQ/L (3.5-5.1); SODIUM LEVEL 135 MEQ/L (136-145)
== END ==
PROVIDERS: ATTEND Physician Assistant
DX: I50.9 Heart failure, unspecified (principal); D64.9 Anemia, unspecified

== ENCOUNTER → 2020-04-13 | Outpatient (REF) | PROVIDERS: ATTEND Internal Medicine | DX: Z03.818 Encounter for observation for suspected exposure to other biological agents ruled out (principal) ==

== ENCOUNTER → 2020-04-28 | Outpatient (REF) | payer MEDICARE ==
[2020-04-28 17:48] LABS: HEMATOCRIT 31.3 % (36.0-47.0); HEMOGLOBIN 9.4 g/dl (12.0-15.5); MEAN CORPUSCULAR HEMOGLOBIN 20.3 pg (27.0-33.0); MEAN CORPUSCULAR VOLUME 67.6 fl (80.0-96.0); PLATELET COUNT, AUTOMATED 485 10^3/uL (150-450); RED BLOOD COUNT 4.63 10^6/uL (4.00-5.40); WHITE BLOOD COUNT 7.8 10^3/uL (4.0-10.0)
[2020-04-28 17:53] LABS: APPEARANCE, URINE HAZY (CLEAR); BACTERIA, URINE AUTO 1+ (NEGATIVE); BILIRUBIN, URINE AUTO NEGATIVE (NEGATIVE); BLOOD, URINE BLOOD NEGATIVE (NEGATIVE); COLOR, URINE YELLOW (YELLOW); GLUCOSE, URINE (UA) AUTO NEGATIVE (NEGATIVE); KETONE, URINE AUTO TRACE mg/dL (NEGATIVE); LEUKOCYTE ESTERASE, URINE AUTO TRACE (NEGATIVE); MUCUS, URINE SMALL (NEGATIVE); NITRITE, URINE AUTO NEGATIVE (NEGATIVE); PROTEIN, URINE AUTO NEGATIVE (NEGATIVE); RBC, URINE AUTO 1 /HPF (0-3); SPECIFIC GRAVITY URINE AUTO 1.016 (1.002-1.035); SQUAMOUS EPITHELIAL CELL UR AU 1 /HPF (0-6); UROBILINOGEN, URINE AUTO 0.2 mg/dL (0.0-2.0); WBC, URINE AUTO 7 /HPF (0-3)
[2020-04-28 18:15] LABS: BLOOD UREA NITROGEN 31 MG/DL (7-18); CALCIUM LEVEL 9.3 MG/DL (8.8-10.2); CARBON DIOXIDE LEVEL 28 MEQ/L (21-32); CHLORIDE LEVEL 100 MEQ/L (98-107); CREATININE FOR GFR 0.58 MG/DL (0.55-1.30); GLOMERULAR FILTRATION RATE > 60.0 (>32); GLUCOSE, FASTING 96 MG/DL (70-100); POTASSIUM SERUM 4.6 MEQ/L (3.5-5.1); SODIUM LEVEL 135 MEQ/L (136-145)
== END ==
PROVIDERS: ATTEND Internal Medicine
DX: Z01.818 Encounter for other preprocedural examination (principal); Z79.899 Other long term (current) drug therapy

== ENCOUNTER → 2020-05-10 | Outpatient (REF) | payer MEDICARE ==
[2020-05-10 13:54] LABS: HEMATOCRIT 33.6 % (36.0-47.0); HEMOGLOBIN 10.1 g/dl (12.0-15.5); MEAN CORPUSCULAR HEMOGLOBIN 20.7 pg (27.0-33.0); MEAN CORPUSCULAR HGB CONC 30.1 g/dl (32.0-36.5); MEAN CORPUSCULAR VOLUME 68.7 fl (80.0-96.0); PLATELET COUNT, AUTOMATED 411 10^3/uL (150-450); RED BLOOD COUNT 4.89 10^6/uL (4.00-5.40); WHITE BLOOD COUNT 7.6 10^3/uL (4.0-10.0)
[2020-05-10 14:07] LABS: BLOOD UREA NITROGEN 33 MG/DL (7-18); CALCIUM LEVEL 9.1 MG/DL (8.8-10.2); CARBON DIOXIDE LEVEL 26 MEQ/L (21-32); CHLORIDE LEVEL 98 MEQ/L (98-107); CREATININE FOR GFR 0.67 MG/DL (0.55-1.30); GLOMERULAR FILTRATION RATE > 60.0 (>32); GLUCOSE, FASTING 132 MG/DL (70-100); POTASSIUM SERUM 4.4 MEQ/L (3.5-5.1); SODIUM LEVEL 134 MEQ/L (136-145)
== END ==
PROVIDERS: ATTEND Internal Medicine
DX: D64.9 Anemia, unspecified (principal); I50.9 Heart failure, unspecified

== ENCOUNTER → 2020-05-19 | Outpatient (REF) | payer MEDICARE ==
[~2020-05-19] MED LIST changes: +ACET-838 PO; -MAGN400O49 PO; +MILK400S19 PO; -NON-325T5 PO; +PANT40TA29 PO; -PANT40TA3 PO
== END ==
PROVIDERS: ATTEND Internal Medicine
DX: Z11.59 Encounter for screening for other viral diseases (principal)

== ENCOUNTER 2020-05-20 09:05 | Inpatient (IN) | payer MEDICARE ==
[2020-05-20] VITALS (8 sets, daily range): BP systolic 113–135; BP diastolic 64–83
[~2020-05-20] VITALS: Ht 162.6 cm; Wt 57.2 kg
[~2020-05-20 09:05] MED LIST changes: -ACET-838 PO; +LR 1,000 ML IV ONE; +MAGN400O49 PO; -MILK400S19 PO; +NON-325T5 PO; -PANT40TA29 PO; +PANT40TA3 PO
[2020-05-20] MEDS ORDERED: cefoTEtan DISODIUM 2 GM in D5W MINI-BAG PLUS 50 ML IV ONE (10:00)
[2020-05-20] MEDS ORDERED: BUPIVACAINE HCL 0.25% 30ML VIAL As Ordered ONE (10:43)
[2020-05-20] MEDS ORDERED: ROCURONIUM BROMIDE 50 MG/5 ML VIAL As Ordered ONE (11:43)
[2020-05-20] MEDS ORDERED: dexameTHASONE 4 MG/ML 1ML VIAL (J1100 PER 1MG) As Ordered ONE (11:43)
[2020-05-20] MEDS ORDERED: SUGAMMADEX SODIUM 500 MG/5 ML VIAL (BRIDION) As Ordered ONE (11:43)
[2020-05-20] MEDS ORDERED: fentaNYL 250 MCG/5 ML INJECTION (J3010) As Ordered ONE (11:43)
[2020-05-20] MEDS ORDERED: propofoL 200 MG/20 ML VIAL As Ordered ONE (11:43)
[2020-05-20] MEDS ORDERED: ONDANSETRON 4MG/2ML VIAL As Ordered ONE (11:43)
[2020-05-20] MEDS ORDERED: LIDOCAINE 2% 100MG/5ML SDV (FOR ANES.) As Ordered ONE (11:43)
[2020-05-20] MEDS ORDERED: ACETAMINOPHEN 1000MG 100ML IV BTL (OFIRMEV) (J0131 PER 10MG) As Ordered ONE (11:58)
[2020-05-20] MEDS ORDERED: PHENYLephrine HCL 500 MCG/5 ML (100MCG/ML) SYRINGE (J2370) As Ordered ONE (13:56)
[2020-05-20] MEDS ORDERED: DESFLURANE 240 ML INHALANT As Ordered ONE (14:35)
[2020-05-20] MEDS ORDERED: METOCLOPRAMIDE INJ 10MG/2ML VIAL (J2765 PER 1) As Ordered ONE (14:45)
[2020-05-20] MEDS ORDERED: ACETAMINOPHEN TAB 650MG DOSE (2X325MG) PO PRN (15:30)
[2020-05-20] MEDS ORDERED: fentaNYL 100 MCG/2 ML INJECTION (J3010) IV PRN (15:30)
[2020-05-20] MEDS ORDERED: oxyCODONE 5MG TAB PO PRN (15:30)
[2020-05-20] MEDS ORDERED: MOM 30ML SUSPENSION UDC PO PRN (15:30)
[2020-05-20] MEDS ORDERED: HYDROMORPHONE HCL 0.5 MG/ 0.5 ML SYRINGE (J1170 PER 1) IV PRN (15:30)
[2020-05-20] MEDS ORDERED: ONDANSETRON 4MG/2ML VIAL IV PRN ×2 (15:30)
[2020-05-20] MEDS: LR 1,000 ML IV SCH (16:08)
[2020-05-20] MEDS: SUCRALFATE 1 GM TAB PO SCH ×2 (17:25→20:39)
[2020-05-20] MEDS: SINEMET 25-100 MG TAB PO SCH (20:39)
[2020-05-20] MEDS: LATANOPROST 0.005% OPHTH SOLN 2.5 ML OU SCH (20:39)
[2020-05-20] MEDS: DOCUSATE SODIUM 100 MG CAP PO SCH (20:39)
[2020-05-20] MEDS: SERTRALINE HCL 50 MG TAB PO SCH (20:39)
[2020-05-20] MEDS ORDERED: cefoTEtan DISODIUM 1 GM in D5W MINI-BAG PLUS 50 ML IV ONE (23:00)
[2020-05-21 02:00] VITALS: BP 110/64
[2020-05-21] MEDS: LR 1,000 ML IV SCH ×3 (02:23→12:20)
[2020-05-21 06:00] VITALS: BP 114/62
[2020-05-21 06:22] LABS: BASO % 0.1 % (0.0-1.0); HEMATOCRIT 27.4 % (36.0-47.0); HEMOGLOBIN 8.4 g/dl (12.0-15.5); LYMPH # 1.5 10^3/uL (1.5-5.0); LYMPH % 19.2 % (24.0-44.0); MEAN CORPUSCULAR HGB CONC 30.7 g/dl (32.0-36.5); MEAN CORPUSCULAR VOLUME 65.2 fl (80.0-96.0); MONO # 0.8 10^3/uL (0.0-0.8); MONO % 10.6 % (0.0-5.0); NEUTROPHILS # 5.3 10^3/uL (1.5-8.5); NEUTROPHILS % 69.6 % (36.0-66.0); PLATELET COUNT, AUTOMATED 346 10^3/uL (150-450); WHITE BLOOD COUNT 7.6 10^3/uL (4.0-10.0)
[2020-05-21 06:38] LABS: BLOOD UREA NITROGEN 18 MG/DL (7-18); CARBON DIOXIDE LEVEL 28 MEQ/L (21-32); CHLORIDE LEVEL 103 MEQ/L (98-107); CREATININE FOR GFR 0.62 MG/DL (0.55-1.30); GLOMERULAR FILTRATION RATE > 60.0 (>32); GLUCOSE, FASTING 78 MG/DL (70-100); POTASSIUM SERUM 3.6 MEQ/L (3.5-5.1); SODIUM LEVEL 139 MEQ/L (136-145)
[2020-05-21] MEDS: ENOXAPARIN 30MG/0.3ML SYRINGE (J1650 PER 10MG) SC SCH (08:24)
[2020-05-21] MEDS: SINEMET 25-100 MG TAB PO SCH ×4 (08:24→20:31)
[2020-05-21] MEDS: FERROUS SULFATE 325MG TAB PO SCH (08:24)
[2020-05-21] MEDS: SUCRALFATE 1 GM TAB PO SCH ×4 (08:24→20:31)
[2020-05-21] MEDS: DOCUSATE SODIUM 100 MG CAP PO SCH ×2 (08:25→20:31)
[2020-05-21] MEDS: PANTOPRAZOLE 40MG TAB (PROTONIX) PO SCH (08:25)
[2020-05-21] MEDS: FLEET ENEMA PR SCH (08:25)
[2020-05-21] MEDS: FUROSEMIDE 40 MG TAB PO SCH (08:25)
[2020-05-21 10:00] VITALS: BP 107/62
[2020-05-21 14:00] VITALS: BP 128/73
[2020-05-21 18:00] VITALS: BP 120/70
[2020-05-21] MEDS: LATANOPROST 0.005% OPHTH SOLN 2.5 ML OU SCH (20:31)
[2020-05-21] MEDS: SERTRALINE HCL 50 MG TAB PO SCH (20:31)
[2020-05-21 22:00] VITALS: BP 109/67
[2020-05-22 02:00] VITALS: BP 102/60
[2020-05-22 06:00] VITALS: BP 124/73
[2020-05-22] MEDS: SUCRALFATE 1 GM TAB PO SCH ×4 (09:10→20:09)
[2020-05-22] MEDS: FLEET ENEMA PR SCH (09:10)
[2020-05-22] MEDS: ENOXAPARIN 30MG/0.3ML SYRINGE (J1650 PER 10MG) SC SCH (09:10)
[2020-05-22] MEDS: SINEMET 25-100 MG TAB PO SCH ×4 (09:11→20:09)
[2020-05-22] MEDS: FERROUS SULFATE 325MG TAB PO SCH (09:11)
[2020-05-22] MEDS: PANTOPRAZOLE 40MG TAB (PROTONIX) PO SCH (09:11)
[2020-05-22] MEDS: DOCUSATE SODIUM 100 MG CAP PO SCH ×2 (09:11→20:09)
[2020-05-22] MEDS: FUROSEMIDE 40 MG TAB PO SCH (09:11)
[2020-05-22 10:00] VITALS: BP 116/64
--- NOTE | 2020-05-22 13:51 | IPN ---
DATE: HISTORY: The patient is now postop day #1 from a robotic-assisted laparoscopic creation of a descending colostomy for severe colonic inertia and obstipation. She has generally remained stable following her surgery and has been having some liquid stool output from her stoma. Vital signs show that she has been afebrile since the surgery. Her pulse has generally been in the 70s and 80s. Her blood pressure is good. Intake and output show that she had 1700 in yesterday. Her output is not well recorded. She has been taking liquids well. There is been no reported nausea or vomiting. PHYSICAL EXAMINATION: The patient appears alert but was completely nonverbal with me. Heart exam shows a regular rhythm. The lungs sound clear. The abdomen is flat. She has bowel sounds present. Her ostomy is edematous but pink and viable and she has some air and liquid stool in ostomy bag. Laboratory studies show that her white count is 8 this morning with a hemoglobin of 8, hematocrit of 27 and platelet count of 346,000. Chemistry profile this morning showed normal electrolytes, BUN, creatinine and glucose. IMPRESSION: The patient is doing very well following her colostomy creation. PLAN: The patient will receive another Fleet's enema in the morning to try to clear residual stool from the rectum. Her ostomy appears to be working well at this point. I will advance her to a regular diet from her clear liquids and stop her IV fluid. I would anticipate that she will be ready to return to the [facility] soon. She will not benefit from any ostomy teaching as the ostomy will be cared for by the staff. SANTOS
[2020-05-22 14:00] VITALS: BP 112/69
--- NOTE | 2020-05-22 18:32 | IPN ---
DATE: 05/22/2020 The patient is status post a diverting colostomy and overall has had a significant amount out of her ostomy. She has some mild dementia issues, forgetfulness issues and overall states that she is not in any significant pain or discomfort. She does not have any nausea. She overall has had no fevers or chills. Vitals have been looking good. Pulse has been stable. Blood pressure has been good. PHYSICAL EXAMINATION: Abdomen is softly distended. Ostomy is functioning. There is air and stool in the bag. There is some edema with the ostomy itself, but otherwise her incisions are clean, dry, healing without any erythema, drainage or discharge. IMPRESSION/PLAN: The patient is status post diverting colostomy. At this point, we will just have to watch the ostomy output and see how that goes. She may have more of a motility issue than previously been noted and we will have to see how her stool output is via the colostomy. Once the edema goes down, I anticipate this should function more normally and some of her general abdominal distension should improve as well. Otherwise, it seems as though we are stable at this time, making some slow but progressive improvements. We will continue with supportive care for now and continue on a regular diet.
[2020-05-22] MEDS: LATANOPROST 0.005% OPHTH SOLN 2.5 ML OU SCH (20:09)
[2020-05-22] MEDS: SERTRALINE HCL 50 MG TAB PO SCH (20:09)
[2020-05-22 22:00] VITALS: BP 105/66
[2020-05-23 02:00] VITALS: BP 106/67
[2020-05-23 06:00] VITALS: BP 111/71
[2020-05-23] MEDS: ENOXAPARIN 30MG/0.3ML SYRINGE (J1650 PER 10MG) SC SCH (08:01)
[2020-05-23] MEDS: SUCRALFATE 1 GM TAB PO SCH ×4 (08:01→21:58)
[2020-05-23] MEDS: SINEMET 25-100 MG TAB PO SCH ×4 (08:01→21:57)
[2020-05-23] MEDS: PANTOPRAZOLE 40MG TAB (PROTONIX) PO SCH (08:01)
[2020-05-23] MEDS: FERROUS SULFATE 325MG TAB PO SCH (08:01)
[2020-05-23] MEDS: DOCUSATE SODIUM 100 MG CAP PO SCH ×2 (08:01→21:57)
[2020-05-23] MEDS: FUROSEMIDE 40 MG TAB PO SCH (08:01)
[2020-05-23 10:00] VITALS: BP 114/60
[2020-05-23 14:00] VITALS: BP 110/60
[2020-05-23] MEDS: LATANOPROST 0.005% OPHTH SOLN 2.5 ML OU SCH (21:57)
[2020-05-23] MEDS: SIMETHICONE 80 MG CHEW TAB PO SCH (21:57)
[2020-05-23] MEDS: SERTRALINE HCL 50 MG TAB PO SCH (21:58)
[2020-05-23 22:00] VITALS: BP 117/67
[2020-05-24] VITALS (7 sets, daily range): BP systolic 114–132; BP diastolic 71–81
--- NOTE | 2020-05-24 07:39 | IPN ---
DATE: 05/23/2020 The patient has had some stool out her ostomy and overall has had some problems with complaining of not having real food, although when I talk to the nurses the patient had some minimal difficulties with eating. She still had some distention without nausea and without vomiting. She has been afebrile. She has had some good stool out her ostomy with air in the bag. On her physical exam, however, she is still distended and tympanitic throughout without guarding and without rebound. Incisions are clean, dry, healing and without erythema, drainage or discharge. IMPRESSION AND PLAN: The patient is stable at this time. We will change her diet over to a pureed diet. We will continue her routine care of her ostomy. She can be discharged to the long-term skilled nursing tomorrow.
[2020-05-24] MEDS: SINEMET 25-100 MG TAB PO SCH ×4 (08:24→21:12)
[2020-05-24] MEDS: PANTOPRAZOLE 40MG TAB (PROTONIX) PO SCH (08:24)
[2020-05-24] MEDS: SIMETHICONE 80 MG CHEW TAB PO SCH ×3 (08:24→21:13)
[2020-05-24] MEDS: FERROUS SULFATE 325MG TAB PO SCH (08:24)
[2020-05-24] MEDS: SUCRALFATE 1 GM TAB PO SCH ×4 (08:25→21:13)
[2020-05-24] MEDS: FUROSEMIDE 40 MG TAB PO SCH (08:25)
[2020-05-24] MEDS: DOCUSATE SODIUM 100 MG CAP PO SCH ×2 (08:25→21:27)
[2020-05-24] MEDS: ENOXAPARIN 30MG/0.3ML SYRINGE (J1650 PER 10MG) SC SCH (08:39)
[2020-05-24] MEDS: LATANOPROST 0.005% OPHTH SOLN 2.5 ML OU SCH (21:13)
[2020-05-24] MEDS: SERTRALINE HCL 50 MG TAB PO SCH (21:13)
[2020-05-25 02:00] VITALS: BP 126/75
[2020-05-25 06:00] VITALS: BP 133/78
[2020-05-25] MEDS: FERROUS SULFATE 325MG TAB PO SCH (08:01)
[2020-05-25] MEDS: FUROSEMIDE 40 MG TAB PO SCH (08:01)
[2020-05-25] MEDS: PANTOPRAZOLE 40MG TAB (PROTONIX) PO SCH (08:01)
[2020-05-25] MEDS: SUCRALFATE 1 GM TAB PO SCH ×2 (08:01→11:21)
[2020-05-25] MEDS: ENOXAPARIN 30MG/0.3ML SYRINGE (J1650 PER 10MG) SC SCH (08:01)
[2020-05-25] MEDS: SIMETHICONE 80 MG CHEW TAB PO SCH (08:01)
[2020-05-25] MEDS: SINEMET 25-100 MG TAB PO SCH ×2 (08:01→11:21)
[2020-05-25] MEDS: DOCUSATE SODIUM 100 MG CAP PO SCH (08:01)
[2020-05-25 10:00] VITALS: BP 132/81
--- NOTE | 2020-05-27 10:15 | RO ---
DATE OF PROCEDURE: 05/20/2020 PREOPERATIVE DIAGNOSIS: Colonic inertia/obstipation. POSTOPERATIVE DIAGNOSIS: Colonic inertia/obstipation, with markedly dilated sigmoid colon and rectum. PROCEDURE PERFORMED: Robotic-assisted laparoscopic descending colostomy with resection of portion of descending colon. SURGEON: Dr. Janak Felipe WATCH ADJUSTER: ANESTHESIA: General. INDICATIONS FOR PROCEDURE: The patient is an 84-year-old woman who has over the years developed progressively worsening obstipation. Recent imaging studies show a markedly distended sigmoid colon and rectum. There is a suggestion of perhaps a mild degree of anal stenosis. She has come to require multiple different cathartic agents as well as use of a rectal tube frequently to try to decompress her rectum. She is now for creation of a colostomy to simplify her bowel care. OPERATIVE PROCEDURE: The patient was brought to the operating room and placed on the table in a supine position. She was placed under general endotracheal anesthesia. She was moved into a low lithotomy position with her lower extremities in padded leg holders. Palpation revealed a distended sigmoid colon in the right mid and lower abdomen. A digital rectal examination was performed which revealed no significant palpable abnormalities, but there was a large amount of semi liquid stool identified. By gentle pressure on the abdomen and digital stimulation of the rectum, a large amount of liquid stool was released into a drainage bag. I then placed an indwelling rectal drainage tube to a drainage bag, though this did not appear to drain particularly well. The patient's abdomen was then prepped and draped in a sterile fashion. The initial entry into the abdomen was in the right upper quadrant. 0.25% Marcaine was infiltrated at the trocar sites as needed. A short transverse incision was made and a Veress needle was inserted. After a positive hanging drop test, the abdomen was insufflated with carbon dioxide gas. An 8 mm port was placed over a 5 mm scope and advanced to the abdominal wall without difficulty. Initial examination showed no evidence of Veress needle of trocar injury. The patient's sigmoid colon was markedly distended. Inspection of the colon revealed that there was some distention as well as of the transverse colon. The muscles appeared hypertrophied. There was no free fluid identified. The gallbladder was noted and was not inflamed. Two additional robotic ports were placed in the mid and lower abdomen on the right. The patient cart of the [employer] system was then brought into position from the left and docked to the middle or endoscope port. Targeting took place at the level of the distal descending colon and the other ports were then docked to the appropriate arms. A forced bipolar and cauterizing scissors were then inserted. I moved to the control console. The patient was tilted to a slight Trendelenburg position and rolled slightly to the right. The descending colon was identified. The descending colon did not appear to be distended, though the tenia were somewhat hypertrophied in appearance. I started mobilization of the colon in the region of the descending sigmoid junction. The lateral attachments were divided and the descending colon was rotated medially. Dissection proceeded up along the lateral aspect of the descending colon with traction medial developing this lateral avascular plane. I subsequently identified a point for transection of the colon roughly at the junction of the descending and sigmoid colons. The vessel sealer was used to create a window through the mesocolon and the colon was divided with a 55 mm robotic stapler with a green load. The mesentery was then divided more proximally to free the colon additionally for delivery of the end of the colon through the anterior abdominal wall. A site was selected for the colostomy in the left upper quadrant about midway between the umbilicus and the costal margin and slightly to the left of the midline. The freeing of the colon continued until it was clear that there was adequate length for delivery of the colon. The inferior mesenteric artery was preserved. The distal end of the bowel also appeared viable. I then returned to the patient's side. The robotic instruments were removed and the robot was undocked and moved aside. A grasper was inserted with a standard endoscope and the end of the descending colon was grasped. A small disk of skin was excised at the colostomy site in the left upper quadrant. The fascia was opened obliquely in the anterior rectus sheath. The muscle was somewhat diminished, but was spread and the posterior fascia was opened as well. The end of the colon was delivered. There was enough bowel that this would extend 10-12 cm through the abdominal wall without significant tension. The bowel all appeared viable. The trocars were all removed. The colon was cleared of some overlying fibrofatty tags. The excess colon was excised and sent as a specimen. Hemostasis was ensured. The vascularity appeared excellent. The end of the colon was then everted with four corner sutures of #3-0 Vicryl. Multiple additional sutures of Vicryl were then placed to complete the maturation of the colostomy. An ostomy appliance was then placed. The remaining three trocar sites were then closed with buried sutures of #4-0 Vicryl. The lowest right lower quadrant trocar site was actually converted to a 12 mm port early in the procedure to allow passage of the stapler. The fascia at this site was closed with a #2-0 Vicryl prior to closing the skin. The patient tolerated the procedure well without apparent complication. Because the sigmoid colon had still appeared quite distended at the conclusion of the procedure, I again stimulated the rectum after removing the rectal tube and a second large quantity of liquid brownish stool was removed. The patient was then awakened in the operating room, extubated and moved to the recovery room in stable condition.
== END 2020-05-25 12:18 | DRG 331 ==
LOC: M OR 09:05 → M MSPAV 16:16
PROVIDERS: ADMIT Surgery; ATTEND Surgery
PROC: 0DBM4ZZ Excision of Descending Colon, Percutaneous Endoscopic Approach (ICD-10-PCS; 2020-05-20)
PROC: 8E0W4CZ Robotic Assisted Procedure of Trunk Region, Percutaneous Endoscopic Approach (ICD-10-PCS; 2020-05-20)
PROC: 0D1N4Z4 Bypass Sigmoid Colon to Cutaneous, Percutaneous Endoscopic Approach (ICD-10-PCS; principal; 2020-05-20 10:45)
DX: K59.8 Other specified functional intestinal disorders (principal); K59.01 Slow transit constipation

== ENCOUNTER → 2020-06-01 | Outpatient (REF) | payer MEDICARE ==
[~2020-06-01] MED LIST changes: -LR 1,000 ML IV ONE
[2020-06-01 12:52] LABS: HEMATOCRIT 33.1 % (36.0-47.0); MEAN CORPUSCULAR HEMOGLOBIN 19.8 pg (27.0-33.0); MEAN CORPUSCULAR HGB CONC 30.2 g/dl (32.0-36.5); MEAN CORPUSCULAR VOLUME 65.5 fl (80.0-96.0); PLATELET COUNT, AUTOMATED 555 10^3/uL (150-450); RED BLOOD COUNT 5.05 10^6/uL (4.00-5.40); WHITE BLOOD COUNT 9.6 10^3/uL (4.0-10.0)
[2020-06-01 13:37] LABS: BLOOD UREA NITROGEN 14 MG/DL (7-18); CALCIUM LEVEL 9.3 MG/DL (8.8-10.2); CARBON DIOXIDE LEVEL 30 MEQ/L (21-32); CHLORIDE LEVEL 95 MEQ/L (98-107); CREATININE FOR GFR 0.65 MG/DL (0.55-1.30); GLOMERULAR FILTRATION RATE > 60.0 (>32); GLUCOSE, FASTING 97 MG/DL (70-100); NT-PRO BNP 1243 PG/ML (<450); POTASSIUM SERUM 3.9 MEQ/L (3.5-5.1); SODIUM LEVEL 134 MEQ/L (136-145); TOTAL 25(OH) VITAMIN D 41.3 NG/ML (30.0-100.0)
== END ==
PROVIDERS: ATTEND Physician Assistant
DX: I11.0 Hypertensive heart disease with heart failure (principal); I50.9 Heart failure, unspecified; Z79.899 Other long term (current) drug therapy

== ENCOUNTER → 2020-06-08 | Outpatient (REF) | payer MEDICARE ==
[2020-06-08 13:53] LABS: HEMATOCRIT 32.6 % (36.0-47.0); HEMOGLOBIN 9.9 g/dl (12.0-15.5); MEAN CORPUSCULAR HGB CONC 30.4 g/dl (32.0-36.5); PLATELET COUNT, AUTOMATED 514 10^3/uL (150-450); RED BLOOD COUNT 4.94 10^6/uL (4.00-5.40)
[2020-06-08 14:19] LABS: BLOOD UREA NITROGEN 22 MG/DL (7-18); CALCIUM LEVEL 9.7 MG/DL (8.8-10.2); CARBON DIOXIDE LEVEL 27 MEQ/L (21-32); CHLORIDE LEVEL 98 MEQ/L (98-107); CREATININE FOR GFR 0.67 MG/DL (0.55-1.30); GLOMERULAR FILTRATION RATE > 60.0 (>32); GLUCOSE, FASTING 97 MG/DL (70-100); NT-PRO BNP 491 PG/ML (<450); POTASSIUM SERUM 4.7 MEQ/L (3.5-5.1); SODIUM LEVEL 133 MEQ/L (136-145)
== END ==
PROVIDERS: ATTEND Physician Assistant
DX: I10 Essential (primary) hypertension (principal); I50.9 Heart failure, unspecified

== ENCOUNTER → 2020-06-10 | Outpatient (REF) | payer MEDICARE ==
[~2020-06-10] MED LIST changes: -MAGN400O49 PO; +MILK400S19 PO; +PANT40TA29 PO; -PANT40TA3 PO
--- NOTE | 2020-06-10 12:24 | REP ---
DEEP VENOUS ULTRASONOGRAPHY BILATERAL THIGHS, RULE OUT DVT: REASON: Pain and swelling. TECHNIQUE: Multiple ultrasonographic images of the deep venous structures of the bilateral thighs were obtained from the common femoral vein to the popliteal vein along with Doppler interrogation and color flow Doppler images. FINDINGS: There is no abnormal echogenic material seen within any of the visualized deep venous structures that would suggest acute thrombosis. Coaptation is unremarkable throughout. Doppler interrogation shows an expected response to respiratory variability and augmentation. The color flow images show what appears to be a normal vascular pattern throughout. Extensive handwritten note on the technologist worksheet scanned in the [email or web address] jacket indicates that the examination was performed in a wheelchair. With this, and the inability to obtain all portions of the exam, and with the inability a reflux study, the exam is limited. IMPRESSION: There is no ultrasonographic evidence of deep venous thrombosis involving any of the visualized deep venous structures of the bilateral thigh, as described above. Electronically Signed by Alexsander Pelaez DO 06/16/2020 12:42 P
== END ==
LOC: EDSTATUS 10:00 → M RAD 10:36
PROVIDERS: ATTEND Physician Assistant
DX: I82.431 Acute embolism and thrombosis of right popliteal vein (principal); Z86.718 Personal history of other venous thrombosis and embolism

== ENCOUNTER → 2020-06-15 | Outpatient (REF) | payer MEDICARE ==
[~2020-06-15] MED LIST changes: +MAGN400O49 PO; -MILK400S19 PO; -PANT40TA29 PO; +PANT40TA3 PO
[2020-06-15 10:38] LABS: HEMATOCRIT 32.6 % (36.0-47.0); HEMOGLOBIN 9.7 g/dl (12.0-15.5); MEAN CORPUSCULAR HEMOGLOBIN 19.8 pg (27.0-33.0); MEAN CORPUSCULAR HGB CONC 29.8 g/dl (32.0-36.5); MEAN CORPUSCULAR VOLUME 66.4 fl (80.0-96.0); PLATELET COUNT, AUTOMATED 410 10^3/uL (150-450); RED BLOOD COUNT 4.91 10^6/uL (4.00-5.40); WHITE BLOOD COUNT 10.7 10^3/uL (4.0-10.0)
[2020-06-15 11:00] LABS: BLOOD UREA NITROGEN 28 MG/DL (7-18); CALCIUM LEVEL 10.1 MG/DL (8.8-10.2); CARBON DIOXIDE LEVEL 28 MEQ/L (21-32); CHLORIDE LEVEL 98 MEQ/L (98-107); CREATININE FOR GFR 0.81 MG/DL (0.55-1.30); GLOMERULAR FILTRATION RATE > 60.0 (>32); GLUCOSE, FASTING 148 MG/DL (70-100); NT-PRO BNP 810 PG/ML (<450); POTASSIUM SERUM 4.5 MEQ/L (3.5-5.1); SODIUM LEVEL 136 MEQ/L (136-145)
== END ==
PROVIDERS: ATTEND Internal Medicine
DX: I50.9 Heart failure, unspecified (principal)